=== PATIENT | male | born 1975 | race Caucasian/White ===

== ENCOUNTER 2018-08-09 16:37 | Observation (INO) | payer OTHER, SELFPAY ==
[2018-08-09 18:12] LABS: Troponin I 0.024 ng/mL (< 0.028)
[2018-08-09] MEDS ORDERED: Ondansetron ODT 4 MG TAB PO PRN (19:37)
[2018-08-09] MEDS ORDERED: Acetaminophen 325 MG TAB PO PRN (19:37)
[2018-08-09] MEDS ORDERED: Guaifenesin DM 100-10/5 ML UDCUP PO PRN (19:37)
[2018-08-09] MEDS ORDERED: Nitroglycerin 0.4 MG TAB (25 Tab Bottle) PO PRN (19:37)
[2018-08-09] MEDS ORDERED: Senokot S 8.6-50 MG TAB PO PRN (19:37)
[2018-08-09] MEDS ORDERED: Ondansetron PF 4 MG/2 ML Vial IVP PRN (19:37)
[2018-08-09] MEDS ORDERED: Acetaminophen 650 MG Suppository PR PRN (19:37)
[2018-08-09 19:59] VITALS: BMI 28.5
[2018-08-09] MEDS: Famotidine 20 MG TAB PO SCH (20:16)
[2018-08-09] MEDS ORDERED: cloNIDine 0.1 MG TAB PO PRN (20:20)
[2018-08-09] MEDS ORDERED: hydrALAZINE 20 MG/ML VIAL SLOW IVP PRN (20:20)
[2018-08-09] MEDS ORDERED: Lisinopril 20 MG TAB PO SCH (20:30)
[2018-08-09] MEDS ORDERED: Amlodipine 5 MG TAB PO SCH (20:30)
[2018-08-09 20:31] LABS: CKMB 1.4 ng/mL (0-6.6)
--- NOTE | 2018-08-09 20:54 | HP ---
PRIMARY CARE PHYSICIAN: Dangelo Fernandes. CHIEF COMPLAINT: Chest pain. HISTORY OF PRESENT ILLNESS: This is a 42-year-old white male with history of uncontrolled hypertension and some anxiety symptoms over the last year, who reports that he has been having some chest pains on and off for the last 3 to 4 days. The pains were pressure sensation, more associated with intermittent palpitations and would quickly resolve. However, the patient was in fdc today and he had onset of the chest pain, it did not go away. It lasted for about 2 hours or longer, was associated with a little bit of lightheadedness, dizziness. Initially, he reported some nausea when he was at the [place] [facility] although he does not recall any nausea now. He was sent to [facility]. There, his blood pressures went up to 186/122 and he had T-wave inversions in the anterolateral leads and indeterminate troponin at 0.031. He was transferred here for further evaluation. PAST MEDICAL HISTORY: Hypertension, diagnosed a couple of years ago. He has never followed up for this or taken any medicine. PAST SURGICAL HISTORY: 1. Cholecystectomy. 2. Surgery to the right side of his forehead. PSYCHIATRIC HISTORY: Possible anxiety over the last year. He has never been diagnosed. SOCIAL HISTORY: The patient smokes 1/2 to 1 pack cigarettes per day. He denies any drug use for the last 20 or so years. No regular alcohol use. He is and lives with his in [place]. ALLERGIES: NO KNOWN DRUG ALLERGIES. CURRENT MEDICATIONS: None. REVIEW OF SYSTEMS: CONSTITUTIONAL: No fevers, no chills. EYES: Mild blurring of his vision as he has gotten older, nothing acutely changing now. ENT: He has had some congestion, drainage, and sore throat for the last 2 to 3 weeks. CARDIOVASCULAR: See HPI. PULMONARY: The patient has had a cough, productive of yellow sputum along with some chest congestion for the last 2 to 3 weeks. No current shortness of breath. GASTROINTESTINAL: No abdominal pain. No nausea or vomiting. No diarrhea or constipation. GENITOURINARY: No dysuria or hematuria. MUSCULOSKELETAL: He has some low back and bilateral costovertebral angle pain that has been going on for some time now, may be the last couple of weeks. SKIN: No rashes or other lesions he has noted. NEUROLOGIC: No numbness, tingling, or focal weakness. PSYCHIATRIC: He has had some anxiety. No depression or psychotic symptoms. PHYSICAL EXAMINATION: VITAL SIGNS: Blood pressure 173/105, pulse 94, respirations 12, O2 saturation 90% on room air, temperature 98.2. GENERAL: This is a well-developed, well-nourished white male, in no acute distress. HEENT: Pupils are equal, round, and reactive to light. Oropharynx is clear without lesions, erythema, or exudate. NECK: Supple. No lymphadenopathy. No thyroid nodules or enlargement. No JVD. HEART: Regular rate and rhythm. No murmurs, rubs, or gallops. LUNGS: Clear to auscultation bilaterally. No wheezes, crackles, or rhonchi. He did have some coughing fits when I had him take some deep breaths in. ABDOMEN: Soft, nontender to palpation. Normoactive bowel sounds. No hepatosplenomegaly or other masses. EXTREMITIES: No clubbing, cyanosis, or edema. SKIN: No rashes or lesions noted. NEUROLOGIC: Intact strength and sensation in all extremities. No facial droop. PSYCHIATRIC: Alert and oriented x3. He has a mildly anxious affect and states that he has a bit of withdrawal from nicotine since he has not been able to smoke, he is requesting a nicotine patch. LABORATORY DATA: Complete metabolic panel notable for a BUN of 21, a glucose of 192, AST of 41, ALT of 58. The rest was normal. His troponin was 0.031 on the 1st check, it was 0.024 on the 2nd. Brain natriuretic peptide is mildly elevated at 108, CK-MB is 1.5. CBC was within normal limits. Chest x-ray, I did review the chest x-ray done in the emergency room along with the radiologist's report. He does have some mild cardiomegaly. No infiltrates or other acute changes. EKG shows normal sinus rhythm with some inverted T-waves in the anterior leads. ASSESSMENT: 1. Chest pain, rule out acute coronary syndrome. We will continue trending troponins. If they remain negative, then we will do a stress test in the morning. The patient is mobile and strong and so we will do the exercise nuclear stress test. Should this be positive, we will consult Cardiology. 2. Cardiomegaly on the chest x-ray, history of uncontrolled hypertension and mildly elevated brain natriuretic peptide. We will go ahead and get an echocardiogram. 3. Uncontrolled hypertension with hypertensive urgency. We will start the patient on regular blood pressure medications and we will give him p.r.n. for severe elevations. 4. Tobacco addiction. We will give the patient a nicotine patch while he is in the hospital and have recommended smoking cessation. We will give him smoking cessation materials. 5. Gastrointestinal prophylaxis. We will put the patient on Pepcid twice a day. 6. Deep venous thrombosis prophylaxis. We will put the patient on subcu Lovenox and SCDs while in the hospital. 7. Code status. The patient is a full code. Should he be incapacitated, his medical decision maker would be his , Tammy Dawkins. Job ID: [id number] [facility]
[2018-08-09] MEDS: Nicotine 14 MG PATCH TD SCH (21:32)
[2018-08-09] MEDS: Melatonin 3 MG TAB PO PRN (22:22)
[2018-08-10 00:03] LABS: CKMB 1.4 ng/mL (0-6.6)
[2018-08-10 01:09] LABS: Bilirubin Negative (Negative); Blood, Urine Negative (Negative); Clarity CLEAR (Clear); Glucose, Urine (Dipstick) Negative (Negative); Leukocyte Negative (Negative); Nitrite Negative (Negative); Protein, Urine (Dipstick) Negative (Neg-Trace); Urobilinogen 0.2 mg/dL (0.2-1.0)
[2018-08-10 01:24] LABS: Amphetamine Detected (NotDetected); Medtox Reader # READER 4; Methamphetamine Detected (NotDetected)
[2018-08-10 01:25] LABS: Barbiturates Screen Not Detected (NotDetected); Benzodiazepine Screen Not Detected (NotDetected); Cocaine Metabolite Screen Not Detected (NotDetected); Medtox Control Line Valid? VALID (VALID); Methadone Not Detected (NotDetected); Opiate Screen Not Detected (NotDetected); Oxycodone Screen Not Detected (NotDetected); Phencyclidine (PCP) Not Detected (NotDetected); THC/Cannabinoid Screen Not Detected (NotDetected); Tricyclic Screen Not Detected (NotDetected)
[2018-08-10 05:40] LABS: #Basophils 0.1 thou/uL (0.0-0.2); #Eosinphils 0.4 thou/uL (0.0-0.7); #Lymphocytes 2.3 thou/uL (1.20-3.40); #Monocytes 0.6 thou/uL (0.11-0.59); #Neutrophils 3.2 thou/uL (1.40-6.50); %Basophils 0.8 % (0.0-1.0); %Eosinophils 5.9 % (0.0-10.0); %Lymphocytes 34.8 % (21.0-51.0); %Monocytes 9.7 % (0.0-10.0); %Neutrophils 48.8 % (42.0-75.0); Hemoglobin 15.8 g/dL (14.0-18.0); Mean Corpuscular HGB CONC 32.5 g/dL (32.0-36.0); Mean Corpuscular Hemoglobin 29.3 pg (27.0-31.0); Mean Corpuscular Volume 90.2 fL (78.0-98.0); Mean Platelet Volume 7.2 fL (7.4-10.4); Platelet Count 264 thou/uL (130-400); RBC Distribution Width 12.4 % (11.5-14.5); Red Blood Cell (RBC) Count 5.39 mill/uL (4.70-6.10); White Blood Cell (WBC) Count 6.5 thou/uL (4.8-10.8)
[2018-08-10 05:56] LABS: Anion Gap 13 mmol/L (10-20); BUN (Urea Nitrogen) 21 mg/dL (8.9-20.6); Calc. Creatinine Clearance 116 mL/min (70-130); Calcium 9.1 mg/dL (7.8-10.44); Carbon Dioxide 23 mmol/L (22-29); Cardiac Risk 3.5 (Less than 4.5); Chloride 106 mmol/L (98-107); Cholesterol 111 mg/dl (< 200 Desired); Estimated GFR-MDRD 85; Glucose 83 mg/dL (70-105); HDL Cholesterol 32 mg/dL (>60 Neg Risk); LDL Cholesterol, Calculated 70 mg/dL; Sodium 138 mmol/L (136-145); Triglycerides 45 mg/dL (Less than 150)
[2018-08-10] MEDS: Aspirin 325 mg Enteric Coated Tablet PO SCH (08:10)
[2018-08-10] MEDS: Famotidine 20 MG TAB PO SCH ×2 (08:10→21:12)
[2018-08-10] MEDS ORDERED: Lisinopril 20 MG TAB PO SCH ×2 (09:00→21:00)
[2018-08-10] MEDS ORDERED: Amlodipine 5 MG TAB PO SCH (09:00)
[2018-08-10] MEDS ORDERED: Enoxaparin Sodium 40 MG/0.4 ML SYRINGE SC SCH (09:00)
[2018-08-10] MEDS ORDERED: Sodium Chloride 0.45% 1,000 ML IV SCH (09:30)
[2018-08-10] MEDS ORDERED: hydrALAZINE 20 MG/ML VIAL ONE (10:19)
[2018-08-10] MEDS ORDERED: Nitroglycerin 50 MG/250 ML BOT 250 ML ONE (10:19)
[2018-08-10] MEDS ORDERED: Iopamidol 370 76% 100 ML VIAL ONE (10:30)
[2018-08-10] MEDS ORDERED: Midazolam HCl 2 mg/2 ml Vial ONE (10:30)
--- NOTE | 2018-08-10 10:54 | CON ---
DATE OF CONSULTATION: HISTORY OF PRESENT ILLNESS: The patient is a 42-year-old gentleman who presents for evaluation of dyspnea and chest discomfort. The patient has no previous cardiac history. He states recently he has noted having dyspnea on exertion. The patient yesterday developed mid sternal chest discomfort that radiated down his left arm. The patient presented to emergency room for further evaluation. The patient denies having any present chest discomfort. The patient denies having any PND or orthopnea. PAST MEDICAL HISTORY: None. PAST SURGICAL HISTORY: Cholecystectomy and surgery on his forehead. SOCIAL HISTORY: He smokes 1 pack per day. FAMILY HISTORY: Positive family history of heart disease. Father had coronary bypass surgery. ALLERGIES: NONE. MEDICATIONS: None. PHYSICAL EXAMINATION: GENERAL: Middle-aged gentleman, no acute distress. VITAL SIGNS: Blood pressure of 132/96. NECK: Showed no jugular venous distention. LUNGS: Clear to auscultation. HEART: Regular rate and rhythm. Normal S1 and S2 with no murmurs. ABDOMEN: Nondistended. EXTREMITIES: Showed no edema. VASCULAR: Radial pulses are 2+. LABORATORY RESULTS: Sodium 138, potassium 4.0, chloride 106, bicarb 23, BUN 21, creatinine is 0.96. Troponin 0.032. White blood cell count 6.5, hemoglobin 15.8, hematocrit 48.6, platelets were 264. IMAGING: His EKG revealed him to have normal sinus rhythm with a T-wave abnormality suggestive of ischemia. IMPRESSION: 1. Chest pain suggestive of ischemic heart disease. 2. Cardiomyopathy. 3. Tobacco abuse. 4. Obesity. This gentleman has evidence of a probable ischemic cardiomyopathy. With his young age, I have recommended proceeding directly with cardiac catheterization. I explained the risks involved with the procedure including ND, bleeding, stroke, cardiac rhythm, and cardiac . The patient understands these risks and wished to proceed. PLAN: 1. Start aspirin. 2. Add lipid lowering medication. 3. Start lisinopril. 4. Add Coreg. 5. Discontinue smoking. 6. Proceed with cardiac catheterization. Job ID: [id number] [facility]
[2018-08-10] MEDS ORDERED: Clopidogrel Bisulfate 300 MG TAB PO SCH (11:15)
--- NOTE | 2018-08-10 11:58 | PDOC.PN ---
- Subjective Encounter Start Date: 08/10/18 Encounter Start Time: 11:45 Subjective: patient examined, in no distress - Objective Resuscitation Status - Order Detail: 08/09/18 19:33 Resuscitation Status Routine Resuscitation Status: FULL: Full Resuscitation Vital Signs & Weight: Vital Signs (12 hours) Temp Pulse Resp BP BP Pulse Ox 08/10/18 11:33 88 14 137/83 97 08/10/18 08:17 98.2 F 70 14 132/96 H 95 08/10/18 07:10 95 08/10/18 04:29 98.1 F 81 12 139/104 H 92 L Weight Weight 82.871 kg I&O: 08/09/18 08/10/18 08/11/18 06:59 06:59 06:59 Intake Total 991 Output Total 950 775 Balance 41 -775 Result Diagrams: 08/11/18 09:40 08/11/18 09:40 Phys Exam - Physical Examination HEENT: PERRLA Neck: no nodes Respiratory: no wheezing, clear to auscultation bilateral Cardiovascular: RRR Gastrointestinal: soft, non-tender Musculoskeletal: no edema, pulses present Neurological: non-focal Lymphatic: no nodes Psychiatric: normal affect, A&O x 3 Skin: normal turgor, cap refill <2 seconds Dx/Plan (1) Chest pain Code(s): R07.9 - CHEST PAIN, UNSPECIFIED Status: Acute (2) Hypertension Code(s): I10 - ESSENTIAL (PRIMARY) HYPERTENSION Status: Chronic (3) Hypertensive urgency Code(s): I16.0 - HYPERTENSIVE URGENCY Status: Acute (4) Drug abuse, amphetamine type Code(s): F15.10 - OTHER STIMULANT ABUSE, UNCOMPLICATED Status: Acute - Plan cont current plan of care Dr Norris saw this morning, radiology technologist mentioned EF 20-25% -: Patient will go to [facility] [employer] [facility] today, stress cancelled -: BP improved, will continue to monitor -: Recheck labs in AM * .
[2018-08-10 12:13] LABS: INR-International Normal Ratio 1.1; Prothrombin Time 13.9 SEC (12.0-14.7)
[2018-08-10] MEDS: Nicotine 14 MG PATCH TD SCH (13:28)
[2018-08-10] MEDS ORDERED: Acetaminophen/Codeine 30-300mg Tablet PO PRN ×2 (14:47)
[2018-08-10] MEDS: Carvedilol 3.125 MG TAB PO SCH (17:13)
[2018-08-10] MEDS: Atorvastatin Calcium 40 MG TAB PO SCH (21:12)
[2018-08-10] MEDS: Lisinopril 5 MG TAB PO SCH (21:12)
[2018-08-10] MEDS: Melatonin 3 MG TAB PO PRN (21:12)
[2018-08-11] MEDS: Carvedilol 3.125 MG TAB PO SCH (08:22)
[2018-08-11] MEDS: Aspirin 325 mg Enteric Coated Tablet PO SCH (08:23)
[2018-08-11] MEDS: Nicotine 14 MG PATCH TD SCH (08:23)
[2018-08-11] MEDS: Famotidine 20 MG TAB PO SCH ×2 (08:23→20:53)
[2018-08-11] MEDS: Lisinopril 5 MG TAB PO SCH (08:23)
[2018-08-11] MEDS ORDERED: Clopidogrel Bisulfate 75 MG TAB PO SCH (09:30)
[2018-08-11] MEDS ORDERED: Carvedilol 3.125 MG TAB PO SCH (09:30)
[2018-08-11] MEDS ORDERED: Lisinopril 5 MG TAB PO SCH (09:45)
[2018-08-11 09:54] LABS: #Eosinphils 0.4 thou/uL (0.0-0.7); #Lymphocytes 1.7 thou/uL (1.20-3.40); #Monocytes 0.5 thou/uL (0.11-0.59); #Neutrophils 4.8 thou/uL (1.40-6.50); %Basophils 0.5 % (0.0-1.0); %Eosinophils 4.8 % (0.0-10.0); %Lymphocytes 22.7 % (21.0-51.0); %Monocytes 6.3 % (0.0-10.0); %Neutrophils 65.6 % (42.0-75.0); Hemoglobin 16.2 g/dL (14.0-18.0); Mean Corpuscular HGB CONC 32.2 g/dL (32.0-36.0); Mean Corpuscular Hemoglobin 28.3 pg (27.0-31.0); Mean Corpuscular Volume 88.1 fL (78.0-98.0); Mean Platelet Volume 7.1 fL (7.4-10.4); Platelet Count 289 thou/uL (130-400); RBC Distribution Width 12.5 % (11.5-14.5); White Blood Cell (WBC) Count 7.2 thou/uL (4.8-10.8)
[2018-08-11 10:16] LABS: ALT (SGPT) 37 U/L (8-55); AST (SGOT) 24 U/L (5-34); Albumin 3.6 g/dL (3.5-5.0); Alkaline Phosphatase 79 U/L (40-150); Anion Gap 7 mmol/L (10-20); BUN (Urea Nitrogen) 18 mg/dL (8.9-20.6); Bilirubin, Total 0.6 mg/dL (0.2-1.2); Calc. Creatinine Clearance 111 mL/min (70-130); Calcium 9.3 mg/dL (7.8-10.44); Carbon Dioxide 32 mmol/L (22-29); Chloride 105 mmol/L (98-107); Estimated GFR-MDRD 81; Globulin 2.6 g/dL (2.4-3.5); Glucose 101 mg/dL (70-105); Potassium 4.1 mmol/L (3.5-5.1); Protein, Total 6.2 g/dL (6.0-8.3); Sodium 140 mmol/L (136-145)
--- NOTE | 2018-08-11 10:51 | PDOC.PN ---
- Subjective Encounter Start Date: 08/11/18 Encounter Start Time: 10:00 Subjective: Patient examined today, no complaints, no overnight events - Objective Resuscitation Status - Order Detail: 08/09/18 19:33 Resuscitation Status Routine Resuscitation Status: FULL: Full Resuscitation Vital Signs & Weight: Vital Signs (12 hours) Temp Pulse Resp BP Pulse Ox 08/11/18 07:50 98.4 F 71 15 141/99 H 94 L 08/11/18 04:50 98 F 74 20 166/116 H 96 Weight Weight 82.871 kg I&O: 08/10/18 08/11/18 08/12/18 06:59 06:59 06:59 Intake Total 991 2310 Output Total 950 1025 Balance 41 1285 Result Diagrams: 08/11/18 09:40 08/11/18 09:40 Phys Exam - Physical Examination HEENT: PERRLA, moist MMs Neck: no nodes, no JVD Respiratory: clear to auscultation bilateral Cardiovascular: RRR Gastrointestinal: soft, non-tender Musculoskeletal: no edema, pulses present Neurological: non-focal, normal sensation Psychiatric: normal affect, A&O x 3 Skin: cap refill <2 seconds Dx/Plan (1) Chest pain Code(s): R07.9 - CHEST PAIN, UNSPECIFIED Status: Acute (2) Hypertension Code(s): I10 - ESSENTIAL (PRIMARY) HYPERTENSION Status: Chronic (3) Hypertensive urgency Code(s): I16.0 - HYPERTENSIVE URGENCY Status: Resolved (4) Drug abuse, amphetamine type Code(s): F15.10 - OTHER STIMULANT ABUSE, UNCOMPLICATED Status: Acute - Plan Repeat Echo today, HF education -: Possible Lifevest -: Dr. Norris following, will await clearance for DC * .
[2018-08-11] MEDS ORDERED: Lisinopril 20 MG TAB PO SCH (16:45)
[2018-08-11] MEDS ORDERED: Carvedilol 6.25 MG TAB PO SCH (17:00)
[2018-08-11] MEDS: Carvedilol 25 MG TAB PO SCH (17:07)
[2018-08-11] MEDS ORDERED: Prevnar 13-Val Conj/PF 0.5 ML SYRINGE IM ONE (18:00)
[2018-08-11] MEDS: Melatonin 3 MG TAB PO PRN (20:53)
[2018-08-11] MEDS: Atorvastatin Calcium 40 MG TAB PO SCH (20:53)
[2018-08-11] MEDS ORDERED: Lisinopril 10 MG TAB PO SCH (21:00)
[2018-08-12 04:59] LABS: #Basophils 0.1 thou/uL (0.0-0.2); #Eosinphils 0.5 thou/uL (0.0-0.7); #Lymphocytes 2.4 thou/uL (1.20-3.40); #Monocytes 0.7 thou/uL (0.11-0.59); #Neutrophils 6.2 thou/uL (1.40-6.50); %Basophils 0.6 % (0.0-1.0); %Eosinophils 5.4 % (0.0-10.0); %Lymphocytes 24.7 % (21.0-51.0); %Monocytes 6.8 % (0.0-10.0); %Neutrophils 62.6 % (42.0-75.0); Hemoglobin 15.5 g/dL (14.0-18.0); Mean Corpuscular HGB CONC 32.2 g/dL (32.0-36.0); Mean Platelet Volume 6.9 fL (7.4-10.4); Platelet Count 274 thou/uL (130-400); RBC Distribution Width 12.2 % (11.5-14.5); Red Blood Cell (RBC) Count 5.37 mill/uL (4.70-6.10); White Blood Cell (WBC) Count 9.9 thou/uL (4.8-10.8)
[2018-08-12 05:19] LABS: ALT (SGPT) 33 U/L (8-55); AST (SGOT) 21 U/L (5-34); Albumin 3.4 g/dL (3.5-5.0); Alkaline Phosphatase 71 U/L (40-150); Anion Gap 12 mmol/L (10-20); BUN (Urea Nitrogen) 21 mg/dL (8.9-20.6); Bilirubin, Total 0.3 mg/dL (0.2-1.2); Calc. Creatinine Clearance 90 mL/min (70-130); Calcium 9.2 mg/dL (7.8-10.44); Carbon Dioxide 26 mmol/L (22-29); Chloride 105 mmol/L (98-107); Estimated GFR-MDRD 64; Globulin 2.3 g/dL (2.4-3.5); Glucose 117 mg/dL (70-105); Potassium 4.2 mmol/L (3.5-5.1); Protein, Total 5.7 g/dL (6.0-8.3); Sodium 139 mmol/L (136-145)
[2018-08-12 07:55] VITALS: TEMP 98.1
[2018-08-12] MEDS ORDERED: Lisinopril 20 MG TAB PO SCH (09:00)
[2018-08-12] MEDS ORDERED: Aspirin 81 mg Enteric Coated Tablet PO SCH (09:00)
[2018-08-12] MEDS ORDERED: Clopidogrel Bisulfate 75 MG TAB PO SCH (09:00)
[2018-08-12] MEDS: Carvedilol 25 MG TAB PO SCH (09:20)
[2018-08-12] MEDS: Famotidine 20 MG TAB PO SCH (09:20)
[2018-08-12] MEDS: Nicotine 14 MG PATCH TD SCH (09:21)
[2018-08-12 11:23] VITALS: BP 142/87
--- NOTE | 2018-08-13 06:20 | DIS ---
DATE OF ADMISSION: 08/09/2018 DATE OF DISCHARGE: 08/12/2018 ALLERGIES: NO KNOWN DRUG ALLERGIES. CHIEF COMPLAINT: Chest pain. FINAL DIAGNOSES: 1. Dilated cardiomyopathy. 2. Single-vessel coronary artery disease with 70% lesion in the circumflex. 3. Hypertension. 4. Tobacco abuse. PROCEDURES PERFORMED: Left heart catheterization by Dr. Norris. LABORATORY DATA: Most recent lab results from 08/12/2018; white blood cell count 9.9, hemoglobin 15.5, hematocrit 48.3, and platelet count 274. IMAGING RESULTS: Echocardiogram on 08/11/2018 showed severely reduced left ventricular systolic function with EF 25% to 30%, mild MR. CONSULTATION: Dr. Norris. HOSPITAL COURSE: The patient is a 42-year-old male with past medical history significant for hypertension, who presented to the hospital with complaints of chest pain. The patient was actually incarcerated in the [facility] residential when his chest pain began. It lasted for about 2 hours, and was associated with intermittent palpitations along with lightheadedness. The patient was initially transferred to the [facility] for further workup and treatment. EKG at that facility showed sinus rhythm with ventricular rate of 80 beats per minute, there were T-wave inversions in the inferior and lateral leads. The troponin there was indeterminant, so the patient was transferred to our facility for higher level of care. His troponin did remain indeterminant, initial echocardiogram did show severely reduced left ventricular systolic function with EF of 25% and Dr. Norris was consulted. The next day, he took the patient to the flue dust laborer, which official report is not available, but review of handwritten progress note showed a 70% lesion in the circumflex, and no other significant coronary artery disease. The patient was initiated on hypertensive and heart failure medication regimen with carvedilol and lisinopril, he was also placed on aspirin and Plavix. The patient was fitted with a Life Vest, given his severely reduced EF. This morning, the patient feels well. He has no chest pain. He has no shortness of breath. He is tolerating all of his medications. He was ambulated around the room without issue. PHYSICAL EXAMINATION: VITAL SIGNS: Blood pressure 143/103, afebrile, and pulse 72. GENERAL: Awake and alert, in no acute distress, well appearing. HEENT: Atraumatic and normocephalic. PERRLA. NECK: Supple, no JVD. RESPIRATORY: Regular respiratory rate and pattern, clear to auscultation bilaterally. CARDIOVASCULAR: S1 and S2, regular rate and rhythm. No appreciable murmurs, rubs, or gallops. GI: Soft, nontender. Positive bowel sounds. MUSCULOSKELETAL: The patient has no edema. No signs of obvious infection. NEUROLOGIC: Nonfocal. CONDITION AT DISCHARGE: Stable. DISCHARGE MEDICATIONS: 1. Aspirin 81 mg daily. 2. Lipitor 40 mg at bedtime. 3. Carvedilol 25 mg p.o. b.i.d. 4. Plavix 75 mg daily. 5. Pepcid 20 mg p.o. b.i.d. 6. Lisinopril 20 mg p.o. b.i.d. 7. Nitroglycerin 0.4 mg sublingual tablet p.r.n. chest pain. The patient was also discharged with tobacco cessation material and nicotine patch. DISCHARGE DISPOSITION: We will discharge the patient home. PLAN: The patient is to continue wearing his Life Vest at all times except when showering. He has been educated regarding the proper use and wear of his Life Vest and its purpose. He will continue his medications as listed above. He will follow up with Dr. Norris in 2 weeks. All questions have been answered to the patient's satisfaction. 30 minutes was spent in the care and management of this patient. Job ID: [id number] [facility]
== END 2018-08-12 12:19 | disposition home or self-care (01) ==
LOC: ERS 16:37 → ERHOLD 17:15 → 2SW 19:29
PROVIDERS: ADMIT Emergency Medicine; ATTEND Emergency Medicine
PROC: 4A023N7 Measurement of Cardiac Sampling and Pressure, Left Heart, Percutaneous Approach (ICD-10-PCS; principal; 2018-08-12)
PROC: B2111ZZ Fluoroscopy of Multiple Coronary Arteries using Low Osmolar Contrast (ICD-10-PCS; 2018-08-12)
DX: I42.0 Dilated cardiomyopathy (principal); I25.10 Atherosclerotic heart disease of native coronary artery without angina pectoris; I16.0 Hypertensive urgency; I10 Essential (primary) hypertension; F17.210 Nicotine dependence, cigarettes, uncomplicated; F15.10 Other stimulant abuse, uncomplicated; E66.9 Obesity, unspecified; Z68.28 Body mass index [BMI] 28.0-28.9, adult
CPT/HCPCS: 36415; 80048; 80053; 80061; 80306; 81003; 82553; 85025; 85610; 85730; 90471; 90670; 93005; 93306; 93458; 94760; 96372; 99152; 99153; C1769; G0009; G0378; J0360; J1644; J1650; J2250; Q9967

== ENCOUNTER 2019-10-22 18:56 | Inpatient (IN) | payer OTHER, SELFPAY ==
[2019-10-22] MEDS ORDERED: Naloxone HCl 0.4 mg/ml Vial ONE (19:35)
[2019-10-22 19:57] LABS: #Eosinphils 0.3 thou/uL (0.0-0.7); #Lymphocytes 1.8 thou/uL (1.20-3.40); #Monocytes 0.8 thou/uL (0.11-0.59); #Neutrophils 7.6 thou/uL (1.40-6.50); %Basophils 0.2 % (0.0-1.0); %Eosinophils 2.8 % (0.0-10.0); %Lymphocytes 16.9 % (21.0-51.0); %Monocytes 7.3 % (0.0-10.0); %Neutrophils 72.9 % (42.0-75.0); Hemoglobin 14.7 g/dL (14.0-18.0); Mean Corpuscular HGB CONC 31.9 g/dL (32.0-36.0); Mean Corpuscular Hemoglobin 28.5 pg (27.0-31.0); Mean Corpuscular Volume 89.5 fL (78.0-98.0); Mean Platelet Volume 7.4 fL (7.4-10.4); Platelet Count 280 thou/uL (130-400); RBC Distribution Width 12.8 % (11.5-14.5); Red Blood Cell (RBC) Count 5.16 mill/uL (4.70-6.10); White Blood Cell (WBC) Count 10.4 thou/uL (4.8-10.8)
[2019-10-22 20:01] LABS: Bacteria/HPF None Seen HPF (None Seen); Bilirubin Negative (Negative); Blood, Urine Trace (Negative); Clarity Clear (Clear); Glucose, Urine (Dipstick) Normal (Negative); Leukocyte Negative Leu/uL (Negative); Nitrite Negative (Negative); Protein, Urine (Dipstick) Negative (Neg-Trace); RBC/HPF 0-3 HPF (0-3); Squamous Epithelial None Seen HPF (0-3); Urobilinogen Normal mg/dL (Less than 2); WBC/HPF 0-3 HPF (0-3)
--- NOTE | 2019-10-22 20:09 | CT ---
CT head noncontrast HISTORY: Altered mental status. FINDINGS: No comparison. There is no evidence of acute intracranial hemorrhage. At the medial aspect of the left thalamus, an ill-defined oval area of decreased density measures up to 1.4 cm length with slight effacement of the adjacent third ventricle. A more well-defined area of decreased density at the left periventricular white matter has the appearance of an old area of infarct. Septum pellucidum is midline. Visualized paranasal sinuses remain well aerated. Tiny pocket of gas as sociated with the right muscles of mastication could be related to recent IV access. IMPRESSION : Subtle abnormality involving the left thalamus could represent edema from an acute infarct. Please co nsider short-term follow-up with MRI, without and with IV gadolinium contrast. 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
[2019-10-22 20:11] LABS: Medtox Reader # READER 4; Methamphetamine Detected (NotDetected)
--- NOTE | 2019-10-22 20:11 | RAD ---
Chest one view HISTORY: Cough. COMPARISON: 08/09/2018. FINDINGS: Cardiac silhouette is magnified and enlarged. Pulmonary vasculature upper limits of normal. Mediastinum is midline. No confluent airspace consolidation or evidence of pneumothorax. lunchroom monitor leads overlie the chest. IMPRESSION : Cardiomegaly. Borderline pulmonary vascular congestion.
[2019-10-22 20:12] LABS: Amphetamine Detected (NotDetected); Barbiturates Screen Not Detected (NotDetected); Benzodiazepine Screen Not Detected (NotDetected); Cocaine Metabolite Screen Not Detected (NotDetected); Medtox Control Line Valid? VALID (VALID); Methadone Not Detected (NotDetected); Opiate Screen Not Detected (NotDetected); Oxycodone Screen Not Detected (NotDetected); Phencyclidine (PCP) Not Detected (NotDetected); THC/Cannabinoid Screen Not Detected (NotDetected); Tricyclic Screen Not Detected (NotDetected)
[2019-10-22 20:17] LABS: ALT (SGPT) 21 U/L (8-55); AST (SGOT) 20 U/L (5-34); Albumin 3.4 g/dL (3.5-5.0); Alkaline Phosphatase 74 U/L (40-110); Anion Gap 12 mmol/L (10-20); BUN (Urea Nitrogen) 15 mg/dL (8.9-20.6); Bilirubin, Total 1.4 mg/dL (0.2-1.2); Calc. Creatinine Clearance 0 mL/min (70-130); Calcium 8.6 mg/dL (7.8-10.44); Carbon Dioxide 26 mmol/L (22-29); Chloride 103 mmol/L (98-107); Estimated GFR-MDRD 70; Globulin 2.2 g/dL (2.4-3.5); Glucose 154 mg/dL (70-105); Lipase 8 U/L (8-78); Potassium 3.5 mmol/L (3.5-5.1); Protein, Total 5.6 g/dL (6.0-8.3); Sodium 137 mmol/L (136-145)
[2019-10-22 20:18] LABS: Acetaminophen Less than 6.0 mcg/mL (10.0-30.0); Alcohol Less than 10 mg/dL (Less than 10); CK (CPK) 171 U/L (30-200); Magnesium 2.1 mg/dL (1.6-2.6); Salicylate Less than 8.0 mg/dL (15.0-30.0)
[2019-10-22] MEDS ORDERED: Aspirin Chewable 81 MG TAB ONE (20:23)
[2019-10-22 20:38] LABS: CKMB 3.8 ng/mL (0-6.6)
[2019-10-22] MEDS ORDERED: Senokot S 8.6-50 MG TAB PO PRN (22:10)
[2019-10-22] MEDS ORDERED: Acetaminophen 325 MG TAB PO PRN (22:10)
[2019-10-22] MEDS ORDERED: Sodium Chloride 0.9% 1,000 ML IV SCH (22:30)
--- NOTE | 2019-10-22 22:42 | PDOC.HHP ---
Hospitalist HPI - History of Present Illness AMS x2 days History of Present Illness: Police were called to patient's residence who called EMS after patient was found to be altered at the scene. Per ED record, patient is not in custody and narcotics were found at the home. Does have a history of drug abuse. Patient is not a good historian, most of the history gleaned from ED records and previous medical records. He will answer questions and follows commands appropriately but is somnolent and goes back to sleep after answering questions. Per ED record, patient's stated he has been altered for about 2 days, recent history of Meth use. Was seen at this facility in Jul 2018 for chest pain, was found to have dilated cardiomyopathy, and Echo at that time with EF 25-30%. Had a heart cath done during that hospital visit and found to have single vessel CAD with 70% lesion in the circumflex. Was fitted for a LifeVest at that time. Patient was not wearing this in the ED. No evidence of AICD placement. He was instructed to follow up with Dr. Norris last year and it is unclear if he complied. He reports no past medical history and states he does not take medications on a daily basis. ED Course: Brain CT with possible acute infarct in left thalamus, recommended MRI to further evaluate. No focal weakness noted. He was given an aspirin, narcan and 1L of NS within in the ED. Chest XR with no acute findings. Elevated troponin in the indeterminate range and EKG done with no acute ST changes. Patient to be admitted to stroke for further work-up. Hospitalist ROS - Review of Systems Constitutional: reports: malaise Eyes: denies: pain, vision change, conjunctivae inflammation, eyelid inflammation, redness, other ENT: denies: ear pain, ear discharge, nose pain, nose discharge, nose congestion , mouth pain, mouth swelling, throat pain, throat swelling, other Respiratory: reports: cough, wheezing Cardiovascular: denies: chest pain, palpitations, orthopnea, paroxysmal noc. dyspnea, edema, light headedness, other Gastrointestinal: denies: nausea, vomiting, abdominal pain, diarrhea, constipation, melena, hematochezia, other Genitourinary: denies: dysuria, frequency, incontinence, hematuria, retention, other Other: Patient is a poor historian and limited ROS was obtained - Medication Medications: None Hospitalist History - Past Medical History Cardiac: reports: CAD, CHF, HTN Pulmonary: reports: congestive heart failure, hypertension - Past Surgical History Past Surgical History: reports: Cholecystectomy - Social History Smoking Status: Smoker, status unknown Drugs: reports: methamphetamine Living Situation: With Family - Exam Eye: anicteric sclera (Pinpoint pupils) ENT: dry oral mucosa Neck: no JVD Heart: RRR, no murmur Respiratory: wheezes Gastrointestinal: soft, non-tender Extremities: no edema Skin: normal turgor Neurological: no weakness Neurological - other findings: speech is rushed, patient is somnolent, answers questions and follows cmds Hospitalist Results - Labs Result Diagrams: 10/22/19 19:41 10/22/19 19:41 Lab results: WBC 10.4 thou/uL (4.8-10.8) 10/22/19 19:41 Hgb 14.7 g/dL (14.0-18.0) 10/22/19 19:41 Hct 46.1 % (42.0-52.0) 10/22/19 19:41 MCV 89.5 fL (78.0-98.0) 10/22/19 19:41 Plt Count 280 thou/uL (130-400) 10/22/19 19:41 Neutrophils % 72.9 % (42.0-75.0) 10/22/19 19:41 Sodium 137 mmol/L (136-145) 10/22/19 19:41 Potassium 3.5 mmol/L (3.5-5.1) 10/22/19 19:41 Chloride 103 mmol/L (98-107) 10/22/19 19:41 Carbon Dioxide 26 mmol/L (22-29) 10/22/19 19:41 BUN 15 mg/dL (8.9-20.6) 10/22/19 19:41 Creatinine 1.13 mg/dL (0.7-1.3) 10/22/19 19:41 Glucose 154 mg/dL (70-105) H 10/22/19 19:41 Lactic Acid 1.5 mmol/L (0.5-2.2) 10/22/19 19:41 Calcium 8.6 mg/dL (7.8-10.44) 10/22/19 19:41 Total Bilirubin 1.4 mg/dL (0.2-1.2) H 10/22/19 19:41 AST 20 U/L (5-34) 10/22/19 19:41 ALT 21 U/L (8-55) 10/22/19 19:41 Alkaline Phosphatase 74 U/L (40-110) 10/22/19 19:41 Creatine Kinase 171 U/L (30-200) 10/22/19 19:41 CK-MB (CK-2) 3.8 ng/mL (0-6.6) 10/22/19 19:41 Troponin I 0.162 ng/mL (< 0.028) H 10/22/19 19:41 Serum Total Protein 5.6 g/dL (6.0-8.3) L 10/22/19 19:41 Albumin 3.4 g/dL (3.5-5.0) L 10/22/19 19:41 Lipase 8 U/L (8-78) 10/22/19 19:41 Urine Ketones Trace mg/dL (Negative) A 10/22/19 19:45 Urine Blood Trace (Negative) A 10/22/19 19:45 Urine Nitrite Negative (Negative) 10/22/19 19:45 Ur Leukocyte Esterase Negative Saundra/uL (Negative) 10/22/19 19:45 Urine RBC 0-3 HPF (0-3) 10/22/19 19:45 Urine WBC 0-3 HPF (0-3) 10/22/19 19:45 Ur Squamous Epith Cells None Seen HPF (0-3) 10/22/19 19:45 Urine Bacteria None Seen HPF (None Seen) 10/22/19 19:45 - EKG Interpretation EKG: Taken in ED with sinus tach, HR 112, ST depression in V5, V6, T waves inverted. No Stemi - Radiology Interpretation CT scan - head Status: report reviewed by me (subtle abnormality involving left thalamus could represent edema from an acute infarction, MRI follow-up recommended) Hospitalist H&P A/P - Problem (1) AMS (altered mental status) Code(s): R41.82 - ALTERED MENTAL STATUS, UNSPECIFIED Status: Acute (2) NSTEMI (non-ST elevated myocardial infarction) Code(s): I21.4 - NON-ST ELEVATION (NSTEMI) MYOCARDIAL INFARCTION Status: Acute (3) Drug abuse, amphetamine type Code(s): F15.10 - OTHER STIMULANT ABUSE, UNCOMPLICATED Status: Acute (4) Hypertension Code(s): I10 - ESSENTIAL (PRIMARY) HYPERTENSION Status: Chronic (5) Dilated cardiomyopathy Code(s): I42.0 - DILATED CARDIOMYOPATHY Status: Acute (6) CAD (coronary artery disease) Code(s): I25.10 - ATHSCL HEART DISEASE OF [place] CORONARY ARTERY W/O ANG PCTRS Status: Acute - Plan Plan: Trend troponins, ASA, Statin, Lovenox 1mg/kg, Cardiology consult for positive troponins, cardiac history Echo, Carotid doppler, MRI brain w/o contrast, neuro checks q4, PT/OT/Speech Case discussed with Dr. Decker who agrees plan Pepcid 20mg po for GI prophalyxis Repeat labs in AM, added lipids, TSH
[2019-10-22 23:12] VITALS: BMI 31.2
[2019-10-22 23:21] LABS: Troponin I 0.703 ng/mL (< 0.028)
[2019-10-22] MEDS ORDERED: Furosemide 20 MG/2 ML VIAL SLOW IVP SCH (23:45)
[2019-10-23 02:07] LABS: #Basophils 0.1 thou/uL (0.0-0.2); #Eosinphils 0.4 thou/uL (0.0-0.7); #Lymphocytes 2.1 thou/uL (1.20-3.40); #Monocytes 0.9 thou/uL (0.11-0.59); #Neutrophils 9.3 thou/uL (1.40-6.50); %Basophils 0.6 % (0.0-1.0); %Eosinophils 3.2 % (0.0-10.0); %Lymphocytes 16.7 % (21.0-51.0); %Monocytes 7.3 % (0.0-10.0); %Neutrophils 72.3 % (42.0-75.0); Hemoglobin 16.1 g/dL (14.0-18.0); Mean Corpuscular HGB CONC 32.5 g/dL (32.0-36.0); Mean Corpuscular Hemoglobin 29.1 pg (27.0-31.0); Mean Corpuscular Volume 89.4 fL (78.0-98.0); Mean Platelet Volume 7.3 fL (7.4-10.4); Platelet Count 305 thou/uL (130-400); Red Blood Cell (RBC) Count 5.54 mill/uL (4.70-6.10); White Blood Cell (WBC) Count 12.8 thou/uL (4.8-10.8)
[2019-10-23] MEDS: Enoxaparin Sodium 100 MG/ML SYRINGE SC SCH ×4 (02:14→21:39)
[2019-10-23] MEDS: Albuterol 200 PUFF (6.7GM INHALER) INH PRN ×2 (02:14→19:45)
[2019-10-23 02:27] LABS: Troponin I 3.424 ng/mL (< 0.028)
[2019-10-23 02:35] LABS: ALT (SGPT) 24 U/L (8-55); AST (SGOT) 38 U/L (5-34); Albumin 3.9 g/dL (3.5-5.0); Alkaline Phosphatase 81 U/L (40-110); Anion Gap 16 mmol/L (10-20); BUN (Urea Nitrogen) 13 mg/dL (8.9-20.6); Bilirubin, Total 1.6 mg/dL (0.2-1.2); Calc. Creatinine Clearance 123 mL/min (70-130); Calcium 9.1 mg/dL (7.8-10.44); Carbon Dioxide 23 mmol/L (22-29); Cardiac Risk 2.8 (Less than 4.5); Chloride 106 mmol/L (98-107); Cholesterol 97 mg/dl (< 200 Desired); Estimated GFR-MDRD 73; Globulin 2.4 g/dL (2.4-3.5); Glucose 94 mg/dL (70-105); HDL Cholesterol 35 mg/dL (>60 Neg Risk); LDL Cholesterol, Calculated 52 mg/dL; Potassium 3.7 mmol/L (3.5-5.1); Protein, Total 6.3 g/dL (6.0-8.3); Sodium 141 mmol/L (136-145); Triglycerides 49 mg/dL (Less than 150)
[2019-10-23] MEDS ORDERED: cloNIDine 0.1 MG TAB PO PRN (07:50)
[2019-10-23] MEDS ORDERED: Nitroglycerin 2% Ointment 1 INCH/1 GM Packet TOP SCH (08:00)
[2019-10-23] MEDS: Nitroglycerin 2% Ointment 1 INCH/1 GM Packet TOP SCH ×2 (08:32→19:35)
[2019-10-23] MEDS: Aspirin 325 mg Enteric Coated Tablet PO SCH (08:33)
[2019-10-23] MEDS: Famotidine 20 MG TAB PO SCH ×2 (08:33→19:35)
--- NOTE | 2019-10-23 08:59 | PDOC.HOSPP ---
- Subjective Encounter Date: 10/23/19 Encounter Time: 08:20 Subjective: Patient seen and examined for Encephalopathy/NSTEMI. Somnolent. - Objective Vital Signs & Weight: Vital Signs (12 hours) Temp Pulse Resp BP BP Pulse Ox 10/23/19 04:09 98.7 F 87 18 136/75 98 10/22/19 22:25 98.3 F 87 19 171/89 H 95 Weight Weight 223 lb 14.4 oz Result Diagrams: 10/23/19 01:52 10/23/19 01:52 Additional Labs: Laboratory Tests 10/22/19 10/22/19 10/23/19 19:41 19:45 01:52 Total Bilirubin Troponin I 3.424 H* B-Natriuretic Peptide 1122.4 H Cholesterol LDL Cholesterol, Calc Ur Amphetamines Screen Detected H U Methamphetamines Scrn Detected H 10/23/19 01:52 Total Bilirubin 1.6 H Troponin I B-Natriuretic Peptide Cholesterol 97 LDL Cholesterol, Calc 52 Ur Amphetamines Screen U Methamphetamines Scrn Radiology Reviewed by me: Yes (CXR - CHF) EKG Reviewed by me: Yes (Tele ST) Hospitalist ROS - Review of Systems ROS unobtainable: due to mental status - Medication Medications: Active Medications Generic Name Dose Route Start Last Admin Trade Name Freq PRN Reason Stop Dose Admin Albuterol Sulfate 2 puff 10/23/19 01:53 10/23/19 02:14 Proventil Hfa INH 2 puff Q4H PRN Administration SOB/WHEEZE Aspirin 325 mg 10/23/19 09:00 10/23/19 08:33 Ecotrin PO 325 mg DAILY KADEEM Administration Enoxaparin Sodium 100 mg 10/23/19 09:00 10/23/19 08:32 Lovenox SC 100 mg [id number],[id number] KADEEM Administration Enoxaparin Sodium 100 mg 10/22/19 23:45 10/23/19 02:14 Lovenox SC 10/24/19 01:00 100 mg NOW KADEEM Administration Famotidine 20 mg 10/23/19 09:00 10/23/19 08:33 Pepcid PO 20 mg BID KADEEM Administration Nitroglycerin 0.5 inch 10/23/19 09:00 10/23/19 08:32 Nitro-Bid 2% Ointment TOP 0.5 inch Q12HR KADEEM Administration - Exam General Appearance: NAD Neck: supple, symmetric, no thyromegaly, JVD Heart: RRR, no gallops, no rubs, normal peripheral pulses Respiratory: no wheezes, no rales, normal chest expansion, rhonchi Gastrointestinal: soft, non-distended, normal bowel sounds, no guarding, no rigidity Extremities: no cyanosis, no clubbing Psychiatric: oriented to person, oriented to place, somnolent Psychiatric - other findings: following verbal commands to some extent Hosp A/P - Plan DVT proph w/lovenox Toxic Metabolic Encephalopathy NSTEMI Single vessel CAD (RCA) - Last Cath 08/03 Acute on chronic systolic HF - EF 25% Polysubstance abuse Obesity BMI 31.2 CKD 2 HTN Tob dep PLAN: Gentle diuresis Await Cardiology input Await MRI brain On ASA/Lovenox/Statins Add low dose ACEI Avoid betablockers due to polysubstance abuse Add NTG patch COVID pending RN called - PT has NSVT. Await Cardio input
[2019-10-23] MEDS ORDERED: Furosemide 40 MG/4 ML VIAL SLOW IVP SCH (09:00)
[2019-10-23] MEDS ORDERED: Enoxaparin Sodium 40 MG/0.4 ML SYRINGE SC SCH (09:00)
[2019-10-23] MEDS ORDERED: D5 0.9% NS w/ 20 mEq KCl 1,000 ML IV SCH (09:00)
[2019-10-23] MEDS ORDERED: Calcium Carbonate 500 MG ChewTAB PO PRN (09:05)
[2019-10-23] MEDS ORDERED: Bisacodyl 10 MG SUPP PR PRN (09:05)
[2019-10-23] MEDS: Furosemide 20 MG/2 ML VIAL SLOW IVP SCH (10:41)
[2019-10-23] MEDS: Carvedilol 3.125 MG TAB PO SCH (16:18)
[2019-10-23 19:25] LABS: SARS-CoV-2 MS2 Positive; SARS-CoV-2 N Gene Negative; SARS-CoV-2 S Gene Negative; SARS-CoV-2 orf1ab Negative
[2019-10-23] MEDS: Atorvastatin Calcium 40 MG TAB PO SCH (19:35)
--- NOTE | 2019-10-23 21:05 | CON ---
DATE OF CONSULTATION: 10/23/2019 REASON FOR CONSULTATION: Increased troponin in a patient with severe cardiomyopathy, single-vessel coronary disease, and polysubstance abuse. PRIMARY PHYSICAL CHEMIST: Bismark Norris MD HISTORY OF PRESENT ILLNESS: Mr. Dawkins is a 44-year-old gentleman, who was brought to the hospital yesterday with altered mental status. The patient has a history of polysubstance abuse. As part of the evaluation, troponin levels were drawn. The patient was able to answer commands appropriately, but was somnolent last night. He had a history of methamphetamine abuse. On July 2018, he was diagnosed with dilated cardiomyopathy with single-vessel coronary disease. He was fitted for a LifeVest at that time, was not wearing the LifeVest in the ED. In the ED, it was found that he had a possible acute infarct in the left thalamus. REVIEW OF SYSTEMS: Please see the notes in the chart. CURRENT MEDICATION: He is on: 1. Aspirin. 2. Atorvastatin. 3. Enoxaparin. 4. Furosemide. 5. Lisinopril. The patient's current status is rule out COVID. The test is pending. PHYSICAL EXAMINATION: Blood pressure is 140/94, pulse is just over 100, it is sinus on the monitor. As per current recommendations to minimize contact with possible COVID patients, no exam was done today. This will be done tomorrow if the COVID test is negative. PERTINENT LABORATORY DATA: The toxicology screen was positive from amphetamines and methamphetamines. EKG revealed sinus tachycardia, no acute changes. Pertinent troponin 3.424. ASSESSMENT: 1. Polysubstance abuse. 2. Altered mental status. 3. Non ST-elevation myocardial infarction, likely due to demand ischemia with underlying coronary disease and cardiomyopathy. PLAN: 1. We will increase carvedilol. 2. COVID test is pending. Dr. Norris to resume case tomorrow if COVID test is back. Further evaluation will be done at that time. Medical therapy seems most appropriate. 3. Echocardiogram after the COVID test is back. Job ID: [id number]
[2019-10-24 05:43] LABS: #Eosinphils 0.5 thou/uL (0.0-0.7); #Lymphocytes 1.7 thou/uL (1.20-3.40); #Monocytes 0.8 thou/uL (0.11-0.59); #Neutrophils 7.8 thou/uL (1.40-6.50); %Basophils 0.3 % (0.0-1.0); %Eosinophils 4.6 % (0.0-10.0); %Lymphocytes 15.7 % (21.0-51.0); %Monocytes 7.5 % (0.0-10.0); Mean Corpuscular HGB CONC 31.8 g/dL (32.0-36.0); Mean Corpuscular Hemoglobin 28.3 pg (27.0-31.0); Mean Corpuscular Volume 88.9 fL (78.0-98.0); Mean Platelet Volume 7.7 fL (7.4-10.4); Platelet Count 308 thou/uL (130-400); RBC Distribution Width 12.8 % (11.5-14.5); Red Blood Cell (RBC) Count 5.32 mill/uL (4.70-6.10); White Blood Cell (WBC) Count 10.9 thou/uL (4.8-10.8)
[2019-10-24 06:05] LABS: ALT (SGPT) 20 U/L (8-55); AST (SGOT) 32 U/L (5-34); Albumin 3.4 g/dL (3.5-5.0); Alkaline Phosphatase 74 U/L (40-110); Anion Gap 14 mmol/L (10-20); BUN (Urea Nitrogen) 18 mg/dL (8.9-20.6); Calc. Creatinine Clearance 107 mL/min (70-130); Calcium 8.6 mg/dL (7.8-10.44); Carbon Dioxide 22 mmol/L (22-29); Chloride 104 mmol/L (98-107); Estimated GFR-MDRD 65; Globulin 2.3 g/dL (2.4-3.5); Glucose 142 mg/dL (70-105); Magnesium 1.7 mg/dL (1.6-2.6); Potassium 3.5 mmol/L (3.5-5.1); Protein, Total 5.7 g/dL (6.0-8.3); Sodium 136 mmol/L (136-145)
[2019-10-24 06:38] LABS: CKMB 8.1 ng/mL (0-6.6)
[2019-10-24] MEDS: Enoxaparin Sodium 100 MG/ML SYRINGE SC SCH (08:20)
[2019-10-24] MEDS: Nitroglycerin 2% Ointment 1 INCH/1 GM Packet TOP SCH ×2 (08:30→19:55)
[2019-10-24] MEDS: Aspirin 325 mg Enteric Coated Tablet PO SCH (08:30)
[2019-10-24] MEDS: Famotidine 20 MG TAB PO SCH ×2 (08:31→19:55)
[2019-10-24] MEDS: Carvedilol 3.125 MG TAB PO SCH ×2 (08:31→18:00)
[2019-10-24] MEDS: Furosemide 20 MG/2 ML VIAL SLOW IVP SCH (08:31)
[2019-10-24] MEDS ORDERED: Lisinopril 2.5 MG TAB PO SCH (09:00)
--- NOTE | 2019-10-24 09:15 | ULT ---
Ultrasound Doppler duplex carotid: DATE: 10/24/2019 HISTORY: 44-year-old male with CVA TECHNIQUE: Grayscale, color-flow, and spectral analysis, of major arteries of neck FINDINGS: Little or no plaque visualized. Vertebral artery flow antegrade bilaterally. Highest peak systolic velocities in the internal carotid arteries are 55 cm/s bilaterally. ICA/CCA ratios are 0.9 on the right and 0.7 on the left. IMPRESSION: No hemodynamically significant stenosis identified.
[2019-10-24] MEDS ORDERED: Magnevist 469MG/ML 20 ML VIAL ONE (09:30)
--- NOTE | 2019-10-24 10:13 | PDOC.HOSPP ---
- Subjective Encounter Date: 10/24/19 Encounter Time: 08:15 Subjective: no weakness or chest pain has some sob but no fever is eating breakfast - Objective Vital Signs & Weight: Vital Signs (12 hours) Temp Pulse Resp BP Pulse Ox 10/24/19 07:23 97.8 F 97 18 130/97 H 94 L 10/24/19 04:12 97.6 F 108 H 20 165/116 H 97 10/24/19 00:10 98.4 F 95 20 153/114 H 96 Weight Weight 215 lb 6.4 oz I&O: 10/23/19 10/24/19 10/25/19 06:59 06:59 06:59 Intake Total 920 Output Total 350 Balance 570 Result Diagrams: 10/24/19 05:16 10/24/19 05:16 Hospitalist ROS - Medication Medications: Active Medications Generic Name Dose Route Start Last Admin Trade Name Freq PRN Reason Stop Dose Admin Albuterol Sulfate 2 puff 10/23/19 01:53 10/23/19 19:45 Proventil Hfa INH 2 puff Q4H PRN Administration SOB/WHEEZE Aspirin 325 mg 10/23/19 09:00 10/24/19 08:30 Ecotrin PO 325 mg DAILY KADEEM Administration Atorvastatin Calcium 40 mg 10/23/19 21:00 10/23/19 19:35 Lipitor PO 40 mg HS KADEEM Administration Carvedilol 3.125 mg 10/23/19 17:00 10/24/19 08:31 Coreg PO 3.125 mg BID-WM KADEEM Administration Enoxaparin Sodium 100 mg 10/23/19 09:00 10/24/19 08:20 Lovenox SC Not Given [id number] KADEEM Famotidine 20 mg 10/23/19 09:00 10/24/19 08:31 Pepcid PO 20 mg BID KADEEM Administration Furosemide 20 mg 10/23/19 09:00 10/24/19 08:31 Lasix SLOW IVP 20 mg DAILY KADEEM Administration Lisinopril 2.5 mg 10/24/19 09:00 10/24/19 08:30 Zestril PO 2.5 mg DAILY KADEEM Administration Nitroglycerin 0.5 inch 10/23/19 09:00 10/24/19 08:30 Nitro-Bid 2% Ointment TOP 0.5 inch Q12HR KADEEM Administration - Exam General Appearance: awake alert Eye: anicteric sclera ENT: no oropharyngeal lesions, dry oral mucosa Neck: supple, no JVD Heart: RRR, no murmur Respiratory: no wheezes, no rales Gastrointestinal: soft, non-tender, non-distended, normal bowel sounds Extremities: no cyanosis, no edema Neurological: cranial nerve grossly intact, no focal deficits Psychiatric: normal affect, A&O x 3 Hosp A/P (1) Acute exacerbation of CHF (congestive heart failure) Code(s): I50.9 - HEART FAILURE, UNSPECIFIED Status: Acute Qualifiers: Heart failure type: combined systolic and diastolic Qualified Code(s): I50.43 - Acute on chronic combined systolic (congestive) and diastolic ( congestive) heart failure (2) Acute CVA (cerebrovascular accident) Code(s): I63.9 - CEREBRAL INFARCTION, UNSPECIFIED Status: Acute (3) NSTEMI (non-ST elevated myocardial infarction) Code(s): I21.4 - NON-ST ELEVATION (NSTEMI) MYOCARDIAL INFARCTION Status: Acute (4) Methamphetamine abuse Code(s): F15.10 - OTHER STIMULANT ABUSE, UNCOMPLICATED Status: Chronic (5) AMS (altered mental status) Code(s): R41.82 - ALTERED MENTAL STATUS, UNSPECIFIED Status: Acute Qualifiers: Altered mental status type: transient alteration of awareness Qualified Code(s): R40.4 - Transient alteration of awareness (6) CAD (coronary artery disease) Code(s): I25.10 - ATHSCL HEART DISEASE OF [place] CORONARY ARTERY W/O ANG PCTRS Status: Chronic Qualifiers: Coronary Disease-Associated Artery/Lesion type: [place] artery [place] vs. transplanted heart: [place] heart Associated angina: without angina Qualified Code(s): I25.10 - Atherosclerotic heart disease of [place] coronary artery without angina pectoris (7) Dilated cardiomyopathy Code(s): I42.0 - DILATED CARDIOMYOPATHY Status: Chronic (8) Hypertension Code(s): I10 - ESSENTIAL (PRIMARY) HYPERTENSION Status: Chronic Qualifiers: Hypertension type: essential hypertension Qualified Code(s): I10 - Essential (primary) hypertension - Plan await MRI results, clinically has good strength in all [address] showed left thalamic cva with edema, hold lovenox untill MRI results are available continue asp, lipitor, coreg, lasix, lisnopril, nitropaste echo is pending, prior ef of 25%
--- NOTE | 2019-10-24 15:42 | MRI ---
Exam: Brain MRI with and without contrast HISTORY: Abnormal lesion in the left thalamus on recent head CT COMPARISON: None FINDINGS: Limited evaluation due to motion degradation on multiple sequences Gradient echo sequence: No hemorrhage Calvarium: Appropriate T1 marrow signal intensity Midline brain parenchyma: Unremarkable Cerebrum:No parenchymal mass, mass effect or midline shift. Brain volume, age-appropriate. Cortical g ray-white matter differentiation is preserved. T2 and FLAIR white matter hyperintensities due to chronic small vessel ischemic change. There is T2 and FLAIR hyperintensity involving the midline supe rior aspect of the midbrain, extending into the left thalamus. Associated restricted diffusion, compatible with acute infarct. Ventricles: No evidence of hydrocephalus. Sinuses and mastoid air cells: Minimal mucosal thickening of the paranasal sinuses. Adequate mastoid air cell aeration Diffusion: Restricted diffusion involving the left thalamus, extending along the left thalamic white matter tracts and involving the upper midbrain. Postcontrast images: No pathologic enhancement of the brain parenchyma. IMPRESSION: 1. Acute infarct involving the left thalamus extending into the left midbrain, along the white matter tract
[2019-10-24] MEDS: Atorvastatin Calcium 40 MG TAB PO SCH (19:55)
[2019-10-25] MEDS ORDERED: Spironolactone 25 MG TAB PO SCH (09:00)
[2019-10-25] MEDS: Famotidine 20 MG TAB PO SCH ×2 (09:54→20:16)
[2019-10-25] MEDS: Lisinopril 5 MG TAB PO SCH ×2 (09:54→20:16)
[2019-10-25] MEDS: Carvedilol 3.125 MG TAB PO SCH ×2 (09:54→16:59)
[2019-10-25] MEDS: Aspirin 325 mg Enteric Coated Tablet PO SCH (09:54)
[2019-10-25] MEDS: Furosemide 20 MG/2 ML VIAL SLOW IVP SCH (09:55)
--- NOTE | 2019-10-25 09:57 | PDOC.HOSPP ---
- Subjective Encounter Date: 10/25/19 Encounter Time: 09:56 Subjective: pt up in bed no complains - Objective Vital Signs & Weight: Vital Signs (12 hours) Temp Pulse Resp BP BP Pulse Ox 10/25/19 07:00 98.8 F 97 15 143/86 H 90 L 10/25/19 02:49 98.8 F 105 H 14 137/85 95 10/24/19 23:43 98.1 F 95 14 113/82 97 Weight Weight 211 lb 3.2 oz I&O: 10/24/19 10/25/19 10/26/19 06:59 06:59 06:59 Intake Total 920 240 Output Total 350 Balance 570 240 Result Diagrams: 10/24/19 05:16 10/24/19 05:16 Hospitalist ROS - Review of Systems Cardiovascular: denies: chest pain, palpitations, orthopnea, paroxysmal noc. dyspnea, edema, light headedness, other Gastrointestinal: denies: nausea, vomiting, abdominal pain, diarrhea, constipation, melena, hematochezia, other Genitourinary: denies: dysuria, frequency, incontinence, hematuria, retention, other - Medication Medications: Active Medications Generic Name Dose Route Start Last Admin Trade Name Freq PRN Reason Stop Dose Admin Acetaminophen 650 mg 10/22/19 22:10 10/25/19 06:22 Tylenol PO 650 mg Q4H PRN Administration Headache/Fever/Mild Pain (1-3) Albuterol Sulfate 2 puff 10/23/19 01:53 10/23/19 19:45 Proventil Hfa INH 2 puff Q4H PRN Administration SOB/WHEEZE Aspirin 325 mg 10/23/19 09:00 10/24/19 08:30 Ecotrin PO 325 mg DAILY KADEEM Administration Atorvastatin Calcium 40 mg 10/23/19 21:00 10/24/19 19:55 Lipitor PO 40 mg HS KADEEM Administration Carvedilol 6.25 mg 10/24/19 17:00 10/24/19 18:00 Coreg PO 6.25 mg BID-WM KADEEM Administration Famotidine 20 mg 10/23/19 09:00 10/24/19 19:55 Pepcid PO 20 mg BID KADEEM Administration Furosemide 20 mg 10/23/19 09:00 10/24/19 08:31 Lasix SLOW IVP 20 mg DAILY KADEEM Administration - Exam Heart: negative: RRR, no murmur, no gallops, no rubs, normal peripheral pulses, irregular, diminshed peripheral pulses, murmur present, II/IV, III/IV Respiratory: negative: CTAB, no wheezes, no rales, no ronchi, normal chest expansion, no tachypnea, normal percussion, rales, rhonchi, tachypneic, wheezes Gastrointestinal: negative: soft, non-tender, non-distended, normal bowel sounds , no palpable masses, no hepatomegaly, no splenomegaly, no bruit, no guarding, no rigidity, tender to palpation, distended, diminished bowl sounds, voluntary guarding Psychiatric: A&O x 3 Hosp A/P - Plan Hosp A/P (1) Acute exacerbation of CHF (congestive heart failure) Code(s): I50.9 - HEART FAILURE, UNSPECIFIED Status: Acute Qualifiers: Heart failure type: combined systolic and diastolic Qualified Code(s): I50.43 - Acute on chronic combined systolic (congestive) and diastolic ( congestive) heart failure (2) Acute CVA (cerebrovascular accident) Code(s): I63.9 - CEREBRAL INFARCTION, UNSPECIFIED Status: Acute (3) NSTEMI (non-ST elevated myocardial infarction) Code(s): I21.4 - NON-ST ELEVATION (NSTEMI) MYOCARDIAL INFARCTION Status: Acute (4) Methamphetamine abuse Code(s): F15.10 - OTHER STIMULANT ABUSE, UNCOMPLICATED Status: Chronic (5) AMS (altered mental status) Code(s): R41.82 - ALTERED MENTAL STATUS, UNSPECIFIED Status: Acute Qualifiers: Altered mental status type: transient alteration of awareness Qualified Code(s): R40.4 - Transient alteration of awareness (6) CAD (coronary artery disease) Code(s): I25.10 - ATHSCL HEART DISEASE OF [place] CORONARY ARTERY W/O ANG PCTRS Status: Chronic Qualifiers: Coronary Disease-Associated Artery/Lesion type: [place] artery [place] vs. transplanted heart: [place] heart Associated angina: without angina Qualified Code(s): I25.10 - Atherosclerotic heart disease of [place] coronary artery without angina pectoris (7) Dilated cardiomyopathy Code(s): I42.0 - DILATED CARDIOMYOPATHY Status: Chronic (8) Hypertension Code(s): I10 - ESSENTIAL (PRIMARY) HYPERTENSION Status: Chronic Qualifiers: Hypertension type: essential hypertension Qualified Code(s): I10 - Essential (primary) hypertension - Plan await MRI results, clinically has good strength in all [address] showed left thalamic cva with edema, hold lovenox untill MRI results are available continue asp, lipitor, coreg, lasix, lisnopril, nitropaste echo is pending, prior ef of 25% 10/24 pt will need life vest
--- NOTE | 2019-10-25 13:14 | CON ---
DATE OF CONSULTATION: 10/25/2019 REASON FOR CONSULTATION: Altered mental status. HISTORY OF PRESENT ILLNESS: A 44-year-old male with history significant for polysubstance abuse , admitted to [facility] on 10/22/2019. Police were called to the patient's residence, who called EMS after the patient was found extremely confused at the scene. Per ED record, he was not in custody and was found to have narcotics at home. He is a poor historian and has a history of drug abuse. On review of the ED records, the had stated that he has been altered for 2 days because of meth use. He has history of chest pain and had dilated cardiomyopathy. Echocardiography was done last year, which showed an ejection fraction of 25% to 30%. Head CT was done in the emergency room, which showed subtle abnormality in the left thalamus, which could represent edema from an acute infarct. He was COVID ruled out, so further testing was delayed until yesterday when he came back negative for COVID. Echocardiogram was done, which showed ejection fraction of 25% to 30% and evidence of mitral regurgitation. Brain MRI showed acute infarct involving the left thalamus extending to the left midbrain, along with the white matter tract. Carotid Dopplers did not reveal any hemodynamically significant stenosis. REVIEW OF SYSTEMS: The patient denies nausea, vomiting, headache, dizziness, or focal weakness. HOME MEDICATIONS: None. OTHER ACTIVE MEDICATIONS: 1. Tylenol. 2. Lisinopril. 3. Albuterol sulfate. 4. Albuterol/ipratropium. 5. Carvedilol. 6. Bisacodyl. 7. Docusate. 8. Clonidine. 9. Famotidine. 10. Atorvastatin. 11. Furosemide. 12. Spironolactone. 13. Aspirin. 14. Calcium. PAST MEDICAL HISTORY: Hypertension, congestive heart failure, and coronary artery disease. PAST SURGICAL HISTORY: Cholecystectomy. SOCIAL HISTORY: Smoker. Uses methamphetamine. Lives with his . Vital Signs & Weight: Vital Signs (12 hours) Temp Pulse Resp BP BP Pulse Ox 10/25/19 07:00 98.8 F 97 15 143/86 H 90 L 10/25/19 02:49 98.8 F 105 H 14 137/85 95 10/24/19 23:43 98.1 F 95 14 113/82 97 Weight Weight 211 lb 3.2 oz I&O: 10/24/19 10/25/19 10/26/19 06:59 06:59 06:59 Intake Total 920 240 Output Total 350 Balance 570 240 - Review of Systems Cardiovascular: denies: chest pain, palpitations, orthopnea, paroxysmal noc. dyspnea, edema, light headedness, other Gastrointestinal: denies: nausea, vomiting, abdominal pain, diarrhea, constipation, melena, hematochezia, other Genitourinary: denies: dysuria, frequency, incontinence, hematuria, retention, other - Medication Medications: Active Medications Generic Name Dose Route Start Last Admin Trade Name Freq PRN Reason Stop Dose Admin Acetaminophen 650 mg 10/22/19 22:10 10/25/19 06:22 Tylenol PO 650 mg Q4H PRN Administration Headache/Fever/Mild Pain (1-3) Albuterol Sulfate 2 puff 10/23/19 01:53 10/23/19 19:45 Proventil Hfa INH 2 puff Q4H PRN Administration SOB/WHEEZE Aspirin 325 mg 10/23/19 09:00 10/24/19 08:30 Ecotrin PO 325 mg DAILY KADEEM Administration Atorvastatin Calcium 40 mg 10/23/19 21:00 10/24/19 19:55 Lipitor PO 40 mg HS KADEEM Administration Carvedilol 6.25 mg 10/24/19 17:00 10/24/19 18:00 Coreg PO 6.25 mg BID-WM KADEEM Administration Famotidine 20 mg 10/23/19 09:00 10/24/19 19:55 Pepcid PO 20 mg BID KADEEM Administration Furosemide 20 mg 10/23/19 09:00 10/24/19 08:31 Lasix SLOW IVP 20 mg DAILY KADEEM Administration PHYSICAL EXAMINATION: CVS: Regular rate and rhythm. CHEST: Clear. ABDOMEN: Soft. NEUROLOGIC: Mental status; the patient is alert and oriented to person, place, and time. Cranial nerves 2 through 12 intact. Motor; muscle tone and bulk are normal. Strength 5/5 bilaterally. Sensory intact. Cerebellar; [id number] testing intact. Reflexes; 2+ bilaterally. Gait; not tested due to the patient's safety reason. DIAGNOSTIC STUDIES: I reviewed the labs, which are unremarkable. MRI of the brain reviewed, which was consistent with acute infarction. ASSESSMENT AND PLAN: A 44-year-old male with a history significant for coronary artery disease and polysubstance abuse, admitted for altered mental status and now has acute stroke. MRI of the brain reviewed, which shows acute infarction involving the left thalamus. Carotid Dopplers were unremarkable for significant stenosis. Echocardiography showed ejection fraction of 25% to 30% and evidence of mitral regurgitation. Neuro checks every 4 hours. Continue aspirin and statin for secondary stroke prevention. PT/OT/speech. Continue home medications. Continue medical management per Primary Team. We will continue to follow. Thank you for the consult. Job ID: [id number] DOUG
--- NOTE | 2019-10-25 15:36 | EEG ---
Referring Physician: Fiordaliza ROPER EEG # [id number] TEST TYPE: ROUTINE PORTABLE INPATIENT REPORT: This EEG was performed using 24 channel [employer] video digital EEG machine with 24 disc electrodes. This was a routine EEG recording. BACKGROUND: There is a nonsustained posterior background rhythm of 6-7 hertz. Minimal reactivity seen with eye opening and eye closure. HYPERVENTILATION: Was not performed. PHOTIC STIMULATION: No significant response seen with photic stimulation. SLEEP: Drowsiness is observed. EEG DIAGNOSIS: 1.) Intermittent irregular theta activity seen throughout the recording. 2.) Nonsustained slow posterior background rhythm. CLINICAL INTERPRETATION: THIS EEG IS CONSISTENT WITH MILD TO MODERATE GENERALIZED NONSPECIFIC CEREBRAL DYSFUNCTION. Senior Mainframe Programmer Analyst: [facility] Secretary: [email or web address] MTDD
[2019-10-25] MEDS: Atorvastatin Calcium 40 MG TAB PO SCH (20:16)
[2019-10-26] MEDS ORDERED: Carvedilol 6.25 MG TAB PO SCH (08:45)
[2019-10-26] MEDS: Spironolactone 25 MG TAB PO SCH (08:48)
[2019-10-26] MEDS: Famotidine 20 MG TAB PO SCH ×2 (08:49→20:36)
[2019-10-26] MEDS: Aspirin 325 mg Enteric Coated Tablet PO SCH (08:49)
[2019-10-26] MEDS: Furosemide 20 MG/2 ML VIAL SLOW IVP SCH (08:49)
[2019-10-26] MEDS: Lisinopril 5 MG TAB PO SCH ×2 (08:55→20:37)
[2019-10-26] MEDS: Carvedilol 3.125 MG TAB PO SCH (09:02)
[2019-10-26 11:38] LABS: Hemoglobin 16.1 g/dL (14.0-18.0); Platelet Count 305 thou/uL (130-400)
[2019-10-26 12:23] LABS: Troponin I 1.694 ng/mL (< 0.028)
--- NOTE | 2019-10-26 14:53 | PDOC.HOSPP ---
- Subjective Encounter Date: 10/26/19 Subjective: NEUROLOGY PROGRESS NOTE No acute events overnight. - Objective Vital Signs & Weight: Vital Signs (12 hours) Temp Pulse Resp BP BP BP Pulse Ox 10/26/19 11:36 98.5 F 92 18 152/100 H 10/26/19 09:55 91 140/98 H 10/26/19 09:01 94 L 10/26/19 08:55 106 H 160/119 H 10/26/19 08:48 160/119 H 10/26/19 07:50 97.7 F 105 H 16 192/131 H 10/26/19 04:43 135/95 H 10/26/19 03:32 98.9 F 113 H 20 135/95 H 95 Weight Weight 211 lb 9.6 oz I&O: 10/25/19 10/26/19 10/27/19 06:59 06:59 06:59 Intake Total 240 200 Balance 240 200 Result Diagrams: 10/26/19 11:24 10/26/19 11:24 Radiology Reviewed by me: Yes EKG Reviewed by me: Yes Hospitalist ROS - Review of Systems Constitutional: denies: fever, chills, sweats, weakness, malaise, other Eyes: denies: pain, vision change, conjunctivae inflammation, eyelid inflammation, redness, other ENT: denies: ear pain, ear discharge, nose pain, nose discharge, nose congestion , mouth pain, mouth swelling, throat pain, throat swelling, other Respiratory: denies: cough, dry, shortness of breath, hemoptysis, SOB with excertion, pleuritic pain, sputum, wheezing, other Cardiovascular: denies: chest pain, palpitations, orthopnea, paroxysmal noc. dyspnea, edema, light headedness, other Gastrointestinal: denies: nausea, vomiting, abdominal pain, diarrhea, constipation, melena, hematochezia, other Genitourinary: denies: dysuria, frequency, incontinence, hematuria, retention, other Musculoskeletal: denies: neck pain, shoulder pain, arm pain, back pain, hand pain, leg pain, foot pain, other Neurological: denies: weakness, numbness, incoordination, change in speech, confusion, seizures, other - Medication Medications: Active Medications Generic Name Dose Route Start Last Admin Trade Name Freq PRN Reason Stop Dose Admin Acetaminophen 650 mg 10/22/19 22:10 05/12/20 06:22 Tylenol PO 650 mg Q4H PRN Administration Headache/Fever/Mild Pain (1-3) Albuterol Sulfate 2 puff 10/23/19 01:53 10/23/19 19:45 Proventil Hfa INH 2 puff Q4H PRN Administration SOB/WHEEZE Aspirin 325 mg 10/23/19 09:00 10/26/19 08:49 Ecotrin PO 325 mg DAILY KADEEM Administration Atorvastatin Calcium 40 mg 10/23/19 21:00 10/25/19 20:16 Lipitor PO 40 mg HS KADEEM Administration Famotidine 20 mg 10/23/19 09:00 10/26/19 08:49 Pepcid PO 20 mg BID KADEEM Administration Furosemide 20 mg 10/23/19 09:00 10/26/19 08:49 Lasix SLOW IVP 20 mg DAILY KADEEM Administration Lisinopril 10 mg 10/26/19 09:00 10/26/19 08:55 Zestril PO 10 mg BID KADEEM Administration Spironolactone 25 mg 10/26/19 08:00 10/26/19 08:48 Aldactone PO 25 mg QAM-WM KADEEM Administration - Exam General Appearance: awake alert Eye: PERRL, anicteric sclera ENT: normocephalic atraumatic, no oropharyngeal lesions Neck: supple, symmetric, no JVD, no thyromegaly Heart: RRR, no murmur, no gallops Respiratory: CTAB Gastrointestinal: soft Extremities: no cyanosis, no clubbing, no edema Skin: normal turgor, no lesions, no rashes Neurological: cranial nerve grossly intact, normal sensation to touch, no new deficit Musculoskeletal: normal tone, normal strength Hosp A/P (1) Acute CVA (cerebrovascular accident) Code(s): I63.9 - CEREBRAL INFARCTION, UNSPECIFIED Status: Acute (2) AMS (altered mental status) Code(s): R41.82 - ALTERED MENTAL STATUS, UNSPECIFIED Status: Acute Qualifiers: Altered mental status type: transient alteration of awareness Qualified Code(s): R40.4 - Transient alteration of awareness (3) Acute exacerbation of CHF (congestive heart failure) Code(s): I50.9 - HEART FAILURE, UNSPECIFIED Status: Acute Qualifiers: Heart failure type: combined systolic and diastolic Qualified Code(s): I50.43 - Acute on chronic combined systolic (congestive) and diastolic ( congestive) heart failure (4) NSTEMI (non-ST elevated myocardial infarction) Code(s): I21.4 - NON-ST ELEVATION (NSTEMI) MYOCARDIAL INFARCTION Status: Acute (5) CAD (coronary artery disease) Code(s): I25.10 - ATHSCL HEART DISEASE OF [place] CORONARY ARTERY W/O ANG PCTRS Status: Chronic Qualifiers: Coronary Disease-Associated Artery/Lesion type: [place] artery [place] vs. transplanted heart: [place] heart Associated angina: without angina Qualified Code(s): I25.10 - Atherosclerotic heart disease of [place] coronary artery without angina pectoris (6) Dilated cardiomyopathy Code(s): I42.0 - DILATED CARDIOMYOPATHY Status: Chronic (7) Methamphetamine abuse Code(s): F15.10 - OTHER STIMULANT ABUSE, UNCOMPLICATED Status: Chronic (8) Chest pain Code(s): R07.9 - CHEST PAIN, UNSPECIFIED Status: Acute - Plan 44 year old male with altered mental status and polysubstance abuse. MRI Brain reviewed which was consistent with acute infarction. EEG reviewed which did not reveal seizure activity. Continue home medications. Continue aspirin/ lipitor and plavix for secondary stroke prevention. Echocardiogram showed EF 25-30 percent Patient counseled on illegal drug abuse. He should follow up with cardiology and neurology as outpatient after discharge for further management. Plan discussed with patient and primary attending Dr. Warren
[2019-10-26] MEDS: Carvedilol 6.25 MG TAB PO SCH (16:16)
--- NOTE | 2019-10-26 16:31 | PDOC.HOSPP ---
- Subjective Encounter Date: 10/26/19 Encounter Time: 10:30 Subjective: pt up in bed no complains. He has been eating chips. I have educated him on not to do so. - Objective Vital Signs & Weight: Vital Signs (12 hours) Temp Pulse Resp BP BP BP Pulse Ox 10/26/19 16:16 168/109 H 10/26/19 15:54 97.8 F 95 20 168/109 H 10/26/19 11:36 98.5 F 92 18 152/100 H 10/26/19 09:55 91 140/98 H 10/26/19 09:01 94 L 10/26/19 08:55 106 H 160/119 H 10/26/19 08:48 160/119 H 10/26/19 07:50 97.7 F 105 H 16 192/131 H 10/26/19 04:43 135/95 H Weight Weight 211 lb 9.6 oz I&O: 10/25/19 10/26/19 10/27/19 06:59 06:59 06:59 Intake Total 240 200 Balance 240 200 Result Diagrams: 10/26/19 11:24 10/26/19 11:24 Hospitalist ROS - Review of Systems Cardiovascular: denies: chest pain, palpitations, orthopnea, paroxysmal noc. dyspnea, edema, light headedness, other Gastrointestinal: denies: nausea, vomiting, abdominal pain, diarrhea, constipation, melena, hematochezia, other Genitourinary: denies: dysuria, frequency, incontinence, hematuria, retention, other - Medication Medications: Active Medications Generic Name Dose Route Start Last Admin Trade Name Contrerasq PRN Reason Stop Dose Admin Acetaminophen 650 mg 10/22/19 22:10 10/25/19 06:22 Tylenol PO 650 mg Q4H PRN Administration Headache/Fever/Mild Pain (1-3) Albuterol Sulfate 2 puff 10/23/19 01:53 10/23/19 19:45 Proventil Hfa INH 2 puff Q4H PRN Administration SOB/WHEEZE Aspirin 325 mg 10/23/19 09:00 10/26/19 08:49 Ecotrin PO 325 mg DAILY KADEEM Administration Atorvastatin Calcium 40 mg 10/23/19 21:00 10/25/19 20:16 Lipitor PO 40 mg HS KADEEM Administration Carvedilol 12.5 mg 10/26/19 17:00 10/26/19 16:16 Coreg PO 12.5 mg BID-WM KADEEM Administration Famotidine 20 mg 10/23/19 09:00 10/26/19 08:49 Pepcid PO 20 mg BID KADEEM Administration Furosemide 20 mg 10/23/19 09:00 10/26/19 08:49 Lasix SLOW IVP 20 mg DAILY KADEEM Administration Lisinopril 10 mg 10/26/19 09:00 10/26/19 08:55 Zestril PO 10 mg BID KADEEM Administration Spironolactone 25 mg 10/26/19 08:00 10/26/19 08:48 Aldactone PO 25 mg QAM-WM KADEEM Administration - Exam Neck: negative: supple, symmetric, no JVD, no thyromegaly, no lymphadenopathy, no carotid bruit, JVD Heart: negative: RRR, no murmur, no gallops, no rubs, normal peripheral pulses, irregular, diminshed peripheral pulses, murmur present, II/IV, III/IV Respiratory: negative: CTAB, no wheezes, no rales, no ronchi, normal chest expansion, no tachypnea, normal percussion, rales, rhonchi, tachypneic, wheezes Gastrointestinal: negative: soft, non-tender, non-distended, normal bowel sounds , no palpable masses, no hepatomegaly, no splenomegaly, no bruit, no guarding, no rigidity, tender to palpation, distended, diminished bowl sounds, voluntary guarding Hosp A/P - Plan Hosp A/P (1) Acute exacerbation of CHF (congestive heart failure) Code(s): I50.9 - HEART FAILURE, UNSPECIFIED Status: Acute Qualifiers: Heart failure type: combined systolic and diastolic Qualified Code(s): I50.43 - Acute on chronic combined systolic (congestive) and diastolic ( congestive) heart failure (2) Acute CVA (cerebrovascular accident) Code(s): I63.9 - CEREBRAL INFARCTION, UNSPECIFIED Status: Acute (3) NSTEMI (non-ST elevated myocardial infarction) Code(s): I21.4 - NON-ST ELEVATION (NSTEMI) MYOCARDIAL INFARCTION Status: Acute (4) Methamphetamine abuse Code(s): F15.10 - OTHER STIMULANT ABUSE, UNCOMPLICATED Status: Chronic (5) AMS (altered mental status) Code(s): R41.82 - ALTERED MENTAL STATUS, UNSPECIFIED Status: Acute Qualifiers: Altered mental status type: transient alteration of awareness Qualified Code(s): R40.4 - Transient alteration of awareness (6) CAD (coronary artery disease) Code(s): I25.10 - ATHSCL HEART DISEASE OF [place] CORONARY ARTERY W/O ANG PCTRS Status: Chronic Qualifiers: Coronary Disease-Associated Artery/Lesion type: [place] artery [place] vs. transplanted heart: [place] heart Associated angina: without angina Qualified Code(s): I25.10 - Atherosclerotic heart disease of [place] coronary artery without angina pectoris (7) Dilated cardiomyopathy Code(s): I42.0 - DILATED CARDIOMYOPATHY Status: Chronic (8) Hypertension Code(s): I10 - ESSENTIAL (PRIMARY) HYPERTENSION Status: Chronic Qualifiers: Hypertension type: essential hypertension Qualified Code(s): I10 - Essential (primary) hypertension - Plan await MRI results, clinically has good strength in all [address] showed left thalamic cva with edema, hold lovenox untill MRI results are available continue asp, lipitor, coreg, lasix, lisnopril, nitropaste echo is pending, prior ef of 25% 10/24 pt will need life vest 10/25 will continue asa/plavix/statin pt suppose to be on plavix but has not been taking it. His bp meds have been reconciled. waiting on lifevest.
[2019-10-26] MEDS: Atorvastatin Calcium 40 MG TAB PO SCH (20:37)
[2019-10-27 08:01] VITALS: TEMP 98.7
[2019-10-27] MEDS: Lisinopril 5 MG TAB PO SCH (08:17)
[2019-10-27] MEDS: Furosemide 20 MG/2 ML VIAL SLOW IVP SCH (08:17)
[2019-10-27] MEDS: Carvedilol 6.25 MG TAB PO SCH (08:17)
[2019-10-27] MEDS: Spironolactone 25 MG TAB PO SCH (08:17)
[2019-10-27] MEDS: Famotidine 20 MG TAB PO SCH (08:17)
[2019-10-27] MEDS: Aspirin 325 mg Enteric Coated Tablet PO SCH (08:17)
[2019-10-27 10:16] VITALS: BP 135/90
[2019-10-27] MEDS ORDERED: Carvedilol 25 MG TAB PO SCH (17:00)
--- NOTE | 2019-10-27 19:13 | DIS ---
DATE OF ADMISSION: 10/22/2019 DATE OF DISCHARGE: 10/27/2019 DISCHARGE DISPOSITION: Home. PRIMARY DISCHARGE DIAGNOSES: Acute on chronic congestive heart failure exacerbation with systolic dysfunction, methamphetamine abuse, acute cerebrovascular accident , non-ST elevation myocardial infarction, acute metabolic encephalopathy on arrival secondary to substance abuse, coronary artery disease, dilated cardiomyopathy, and hypertension. PROCEDURES DONE DURING HOSPITALIZATION: Echo with 2D Doppler done showed EF of 15% to 20%. MRI brain showed acute infarct involving the left thalamus extending into left midbrain along the white matter tract. Carotid Doppler showed no hemodynamically significant stenosis. Influenza A and B antigens were negative. COVID-19 PCR not detected. Urine drug screen was positive for amphetamines and methamphetamines. BUN 18, creatinine 1.21. Troponin I peaked up to 3.71. CK- MB peaking up to 8.1. Total cholesterol 97, triglycerides 49, LDL 52, HDL 35. BNP 1122, H and H 16 and 51, platelet count 305. DISCHARGE MEDICATIONS: 1. Aspirin 81 mg p.o. daily. 2. Lipitor 40 mg p.o. at bedtime. 3. Carvedilol 25 mg twice daily. 4. Plavix 75 mg daily. 5. Pepcid 20 mg twice daily. 6. Lasix 40 mg daily. 7. Lisinopril 40 mg daily. 8. Spironolactone 25 mg daily. ALLERGIES: NO KNOWN DRUG ALLERGIES. DISCHARGE PLAN: The patient to follow up with his primary care physician, Sharri Zamora, nurse practitioner on 10/31/2019 at 1:15 p.m. The patient needs to follow up with cardiac rehab at [facility]. INPATIENT CONSULT: Dr. Norris for Cardiology. BRIEF COURSE DURING HOSPITALIZATION: The patient initially got admitted on the with complaints of shortness of breath and was also found to be confused with acute metabolic encephalopathy. His urine drug screen came back positive for amphetamines and methamphetamines. The patient has known chronic history of substance use with cardiomyopathy. His prior EF was 25% to 30%, but current echo showed EF reducing down to 10% to 15%. The patient had increasing troponin levels as well. He was also found to have had acute CVA in the thalamic area going down to mid brain. He was counseled with regard to complete cessation of street drugs and medication compliance. He is hemodynamically stable. The patient was on Lovenox for non-ST elevation [place], which was held due to edema seen on the initial CAT scan with acute CVA. He has remained hemodynamically stable. The patient was given option of getting a LifeVest, but due to financial reasons and the patient declining the same, this has not been arranged prior to discharge. Please note, I have seen and examined the patient on the day of discharge. He has been cleared for discharge by Dr. Norris. Job ID: [id number] MTDD
--- NOTE | 2019-10-29 12:45 | EKG ---
Test Reason : Blood Pressure : / mmHG Vent. Rate : 112 BPM Atrial Rate : 112 BPM P-R Int : 152 ms QRS Dur : 106 ms QT Int : 350 ms P-R-T Axes : 067 -37 107 degrees QTc Int : 477 ms Sinus tachycardia with occasional Premature ventricular complexes Possible Left atrial enlargement Left axis deviation Possible Anterior infarct , age undetermined T wave abnormality, consider lateral ischemia Abnormal ECG T wave inversion V5,V6 Confirmed by BURTON JACKSON M.D. ([id number]), newspaper photo editor ELMER CULLEN ([id number]) on 10/29/2019 12:44:48 PM Referred By: Confirmed By:BURTON JACKSON M.D.
== END 2019-10-27 15:46 | disposition home or self-care (01) | DRG 64 ==
LOC: ERS 18:56 → 2SW 21:40
PROVIDERS: ADMIT Internal Medicine; ATTEND Internal Medicine
DX: I63.89 Other cerebral infarction (principal); G92 Toxic encephalopathy; I50.23 Acute on chronic systolic (congestive) heart failure; I21.4 Non-ST elevation (NSTEMI) myocardial infarction; G93.6 Cerebral edema; I42.0 Dilated cardiomyopathy; I13.0 Hypertensive heart and chronic kidney disease with heart failure and stage 1 through stage 4 chronic kidney disease, or unspecified chronic kidney disease; F15.10 Other stimulant abuse, uncomplicated; I25.10 Atherosclerotic heart disease of native coronary artery without angina pectoris; Z20.828 Contact with and (suspected) exposure to other viral communicable diseases; E66.9 Obesity, unspecified; N18.2 Chronic kidney disease, stage 2 (mild); F17.210 Nicotine dependence, cigarettes, uncomplicated; R40.4 Transient alteration of awareness; R29.703 NIHSS score 3; Z68.31 Body mass index [BMI] 31.0-31.9, adult; Z90.49 Acquired absence of other specified parts of digestive tract
CPT/HCPCS: 36415; 70450; 70553; 71045; 80053; 80061; 80306; 80307; 81003; 81015; 82550; 82553; 82565; 83605; 83690; 83735; 83880; 84443; 84484; 85014; 85018; 85025; 85049; 87635; 87804; 93005; 93306; 93880; 95816; 95819; 96361; 96374; A9579; J1650; J1940; J2310; J3480; U0003

== ENCOUNTER 2020-06-19 08:14 | Inpatient (IN) | payer SELFPAY ==
[2020-06-19] MEDS ORDERED: Furosemide 40 MG/4 ML VIAL ONE ×2 (08:36→12:57)
[2020-06-19] MEDS ORDERED: Albuterol 200 PUFF (6.7GM INHALER) ONE (08:36)
[2020-06-19] MEDS ORDERED: Nitroglycerin 2% Ointment 1 INCH/1 GM Packet ONE (08:36)
[2020-06-19] MEDS ORDERED: Nitroglycerin 0.4 MG TAB 1 EACH ONE (08:36)
[2020-06-19] MEDS ORDERED: methylPREDNISolone Sod Succ/PF 125 MG/2 ML VIAL ONE (08:36)
[2020-06-19] MEDS ORDERED: Aspirin Chewable 81 MG TAB ONE (08:36)
--- NOTE | 2020-06-19 09:01 | RAD ---
RADIOGRAPH CHEST 1 VIEW: DATE: 06/19/2020 TIME: 8:49 AM HISTORY: 44-year-old male with dyspnea and chest pain COMPARISON: 10/22/2019 FINDINGS: Cardiomegaly, similar to prior study. Mild haziness with mildly increased attenuation at bilateral lung bases, perhaps minimally worse than prior study. No obvious large consolidation. No pneumothorax. IMPRESSION: Cardiomegaly and possible mild pulmonary interstitial edema, perhaps representing congestive heart fa ilure.
[2020-06-19 09:14] LABS: #Eosinphils 0.3 thou/uL (0.0-0.7); #Monocytes 1.1 thou/uL (0.11-0.59); #Neutrophils 11.2 thou/uL (1.40-6.50); %Basophils 0.3 % (0.0-1.0); %Eosinophils 2.3 % (0.0-10.0); %Lymphocytes 13.4 % (21.0-51.0); %Monocytes 7.4 % (0.0-10.0); %Neutrophils 76.6 % (42.0-75.0); Hemoglobin 14.7 g/dL (14.0-18.0); Mean Corpuscular HGB CONC 32.1 g/dL (32.0-36.0); Mean Corpuscular Hemoglobin 28.9 pg (27.0-31.0); Mean Platelet Volume 7.7 fL (7.4-10.4); Platelet Count 298 thou/uL (130-400); RBC Distribution Width 12.8 % (11.5-14.5); Red Blood Cell (RBC) Count 5.08 mill/uL (4.70-6.10); White Blood Cell (WBC) Count 14.6 thou/uL (4.8-10.8)
[2020-06-19 09:23] LABS: ALT (SGPT) 31 U/L (8-55); AST (SGOT) 28 U/L (5-34); Alkaline Phosphatase 83 U/L (40-110); Anion Gap 18 mmol/L (10-20); BUN (Urea Nitrogen) 19 mg/dL (8.9-20.6); Bilirubin, Total 1.2 mg/dL (0.2-1.2); Calc. Creatinine Clearance 0 mL/min (70-130); Carbon Dioxide 25 mmol/L (22-29); Chloride 102 mmol/L (98-107); Globulin 2.4 g/dL (2.4-3.5); Glucose 101 mg/dL (70-105); Magnesium 1.7 mg/dL (1.6-2.6); Potassium 4.6 mmol/L (3.5-5.1); Protein, Total 6.4 g/dL (6.0-8.3); Sodium 140 mmol/L (136-145)
[2020-06-19 09:46] LABS: CKMB 3.4 ng/mL (0-6.6)
[2020-06-19] MEDS ORDERED: Lorazepam 2 MG/ML VIAL ONE (10:29)
[2020-06-19 10:48] LABS: Bacteria/HPF None Seen HPF (None Seen); Bilirubin Negative (Negative); Blood, Urine Trace (Negative); Clarity Clear (Clear); Glucose, Urine (Dipstick) Normal (Negative); Ketone, Urine Negative (Negative); Leukocyte Negative Leu/uL (Negative); Nitrite Negative (Negative); Protein, Urine (Dipstick) Negative (Neg-Trace); RBC/HPF 0-3 HPF (0-3); Specific Gravity, Urine 1.009 (1.002-1.036); Squamous Epithelial None Seen HPF (0-3); Urobilinogen Normal mg/dL (Less than 2); WBC/HPF None Seen HPF (0-3); pH, Urine 5.5 (5.0-9.0)
--- NOTE | 2020-06-19 11:06 | PDOC.FPRHP ---
- History of Present Illness Chief Complaint: SOB History of Present Illness: 44 y/o M w/ PMHx HFrEF, HTN, hx polysubstance abuse, ischemic heart disease presents for SOB. Upon examination, patient has just received ativan and is a somewhat poor historian due to mental status. Reports he came to the ER for "knick knacks". Further questioning reveals he has been SOB at home although it is unclear how long. Endorses cough as well. He denies any chest pain, headache, vision changes, fever, chills, increased or decreased PO intake, edema. No known sick contacts. He has not been taking any of his medications at home. Denies recent drug use although UDS positive. ED Course: ASA, nitro paste, nitro SL, solumedrol, albuterol, lasix, ativan - Allergies/Adverse Reactions Allergies Allergy/AdvReac Type Severity Reaction Status Date / Time No Known Drug Allergies Allergy Verified 08/09/18 20:13 - Home Medications Medication Instructions Recorded Confirmed Type Atorvastatin Calcium [Lipitor] 40 mg PO HS #30 tab 08/12/18 10/23/19 Rx Famotidine [Pepcid] 20 mg PO BID #60 tab 08/12/18 10/23/19 Rx Nicotine [Nicoderm CQ] 14 mg TD Q24HR #7 patch 08/12/18 10/23/19 Rx Nitroglycerin [Nitrostat] 0.4 mg PO Q5MIN PRN #25 tab 08/12/18 10/23/19 Rx Aspirin [Ecotrin Low Strength] 81 mg PO DAILY #30 tab 10/26/19 Rx Atorvastatin Calcium [Lipitor] 40 mg PO HS #30 tab 10/26/19 Rx Carvedilol [Coreg] 25 mg PO BID-WM #60 tab 10/26/19 Rx Clopidogrel Bisulfate [Plavix] 75 mg PO DAILY #30 tab 10/26/19 Rx Furosemide [Lasix] 40 mg PO DAILY #30 tab 10/26/19 Rx Lisinopril [Zestril] 40 mg PO DAILY #30 tab 10/26/19 Rx Spironolactone [Aldactone] 25 mg PO QAM-WM #30 tab 10/26/19 Rx - History PMHx: CAD, HFrEF 15-20%, NSTEMI 10/2019, CVA PSHx: cholecystectomy FHx: noncontributory Social: Prior meth use, denies alcohol use. Former? smoker - quit 3-4 mo ago but last smoked this am. Previous 2PPD, started at age 13. - Review of Systems General: denies: fever/chills Eyes: denies: vision changes ENT: denies: nasal congestion, rhinorrhea Respiratory: reports: cough, shortness of breath Cardiovascular: reports: palpitation. denies: chest pain, edema Gastrointestinal: denies: nausea, vomiting, diarrhea, constipation, abdominal pain Genitourinary: denies: dysuria Skin: denies: rashes Musculoskeletal: denies: pain, swelling Neurological: denies: syncope, weakness - Vital signs BP: 175/123, Pulse: 112, Resp: 33, O2 sat: 95 on (2L Oxygen), Wt: 90 kg, temp 97.6 - Physical Exam Constitutional: other (snoring, arousable; oriented to self, not oriented to location ([place]) or time (2018)) HEENT: normocephalic and atraumatic, conjunctiva clear, no scleral icterus, MMM Neck: supple Chest: no-tender to palpation, no lesions Heart: no murmurs/rubs/gallops, pulses present, no edema, other (tachycardia) Lungs: other (diffuse inspiratory and expiratory wheezes bilaterally, 94% on 2LNC) Abdomen: soft, non-tender, bowel sounds present Musculoskeletal: normal structure Neurological: no focal deficit, CN II-XII intact Skin: good turgor, capillary refill <2 seconds, no jaundice Heme/Lymphatic: no unusual bruising or bleeding, no purpura, no petechia Psychiatric: other (poor insight into medical problems, recent memory impaired due to drugs/medications) FMR H&P: Results - Labs Result Diagrams: 06/19/20 08:40 06/20/20 04:17 Lab results: WBC 14.6 thou/uL (4.8-10.8) H 06/19/20 08:40 Hgb 14.7 g/dL (14.0-18.0) 06/19/20 08:40 Hct 45.8 % (42.0-52.0) 06/19/20 08:40 MCV 90.0 fL (78.0-98.0) 06/19/20 08:40 Plt Count 298 thou/uL (130-400) 06/19/20 08:40 Neutrophils % 76.6 % (42.0-75.0) H 06/19/20 08:40 Sodium 140 mmol/L (136-145) 06/19/20 08:40 Potassium 4.6 mmol/L (3.5-5.1) 06/19/20 08:40 Chloride 102 mmol/L (98-107) 06/19/20 08:40 Carbon Dioxide 25 mmol/L (22-29) 06/19/20 08:40 BUN 19 mg/dL (8.9-20.6) 06/19/20 08:40 Creatinine 1.18 mg/dL (0.7-1.3) 06/19/20 08:40 Glucose 101 mg/dL (70-105) 06/19/20 08:40 Lactic Acid 2.1 mmol/L (0.5-2.2) 06/19/20 08:40 Calcium 9.0 mg/dL (7.8-10.44) 06/19/20 08:40 Total Bilirubin 1.2 mg/dL (0.2-1.2) 06/19/20 08:40 AST 28 U/L (5-34) 06/19/20 08:40 ALT 31 U/L (8-55) 06/19/20 08:40 Alkaline Phosphatase 83 U/L (40-110) 06/19/20 08:40 CK-MB (CK-2) 3.4 ng/mL (0-6.6) 06/19/20 08:40 B-Natriuretic Peptide 2324.2 pg/mL (0-100) H 06/19/20 08:40 Serum Total Protein 6.4 g/dL (6.0-8.3) 06/19/20 08:40 Albumin 4.0 g/dL (3.5-5.0) 06/19/20 08:40 Urine Ketones Negative mg/dL (Negative) 06/19/20 10:20 Urine Blood Trace (Negative) A 06/19/20 10:20 Urine Nitrite Negative (Negative) 06/19/20 10:20 Ur Leukocyte Esterase Negative Saundra/uL (Negative) 06/19/20 10:20 Urine RBC 0-3 HPF (0-3) 06/19/20 10:20 Urine WBC None Seen HPF (0-3) 06/19/20 10:20 Ur Squamous Epith Cells None Seen HPF (0-3) 06/19/20 10:20 Urine Bacteria None Seen HPF (None Seen) 06/19/20 10:20 - EKG Interpretation EKG: EKG: tachycardia with T wave inversions in V5, V6 FMR H&P: A/P - Plan Acute hypoxic respiratory failure 2/2 CHF exacerbation HFrEF, EF 15-20% per echo 10/2019. BNP >2300, presented for worsening SOB. s/p IV lasix 40mg x1, solumedrol, albuterol in ER. CXR c/w volume overload. COVID ne gative. - will continue diuresis with 40mg IV BID - strict I/O - daily AM weights - duonebs PRN Ischemic heart disease Indeterminate troponin, no chest pain, EKG with T wave inversions in V5, V6 which are apparently new. ASA, nitro in ED. - trend troponins - stat EKG for chest pain - PRN nitro for chest pain - telemetry monitoring - ASA, statin - cardiology consulted, appreciate recommendations HTN urgency May be 2/2 medication non-compliance vs drug use. - will start metoprolol due to wheezing on exam - start home lisinopril - start hydralazine 50 mg PO TID - consider clonidine PRN for SBP >180 as HTN may in part be due to drug use Meth use Denies use, UDS positive on admission. Altered on admission s/p benzo administration in ED and unclear timeline of recent drug use. Mentation improved on repeat examination. - encourage cessation Hx CVA Aware CODE: FULL IVF: SL Diet: HH DVT ppx: lovenox GI ppx: not indicated Dispo: admit to tele, eLOS > 48 hrs FMR H&P: Upper Level - Plan Date/Time: 06/19/20 1105 IDebbie, have evaluated this patient and agree with findings/plan as outlined by internet marketing director resident. Pertinent changes/additions are listed here. 44 yo M with PMH CAD, HFrEF presents for progressively worsening SOB for the past couple weeks. He also endorses substernal chest pain for the past two days which resolved prior to coming to ED. Denies any known cause. Says chest pain was similar to prior episodes. No known sick contacts. Has shortness of breath and wheezing. Denies hx asthma. When he last saw Dr. Norris last year, he says he was supposed to follow up for stents and a pacemaker, but never did. He has not been on any home medications for some time. Patient denies current illicit drug use. BP: 175/123, Pulse: 112, Resp: 33, Temp: 97.6 (Oral), Pain: 8, O2 sat: 94 on (Room Air) PE: Gen: NAD HEENT: Moist MM Heart: tachycardic, no murmurs. Distal pulses 2+ Lungs: significant inspiratory and expiratory wheeze Abd: soft, nontender, BS+, no masses or hernias Ext: no cyanosis or edema Skin: no rashes Acute hypoxic respiratory failure 2/2 HFrEF exacerbation - EF 15-20% 10/2019, Dr. Norris is manager community relations - BNP 2300, CXR with cardiomegaly and mild pulmonary interstitial edema - s/p lasix in ED, continue IV lasix, monitor strict I/Os - Not on any medications, will need SHERMAN, BB, Statin, ASA prior to dc - Requiring 2L O2 NC HTN urgency - BP 180s/130s in ED - Hydralazine prn and will restart new home regimen Indeterminate troponin - Likely 2/2 demand - Continue to trend trop, initial 0.155 - EKG with possible new t wave inversions, monitor on tele - Consult cardiology considering significant cardiac hx CKD2, at baseline - GFR 60s at baseline Hx polysubstance abuse - UDS pending Diet: HH DVT ppx: lovenox Dispo: admit to telemetry, inpatient, expected LOS >48h Addendum - Attending - Attending Attestation Date/Time: 06/20/20 [id number] I personally evaluated the patient and discussed the management with Dr. [] I agree with the History, Examination, Assessment and Plan documented above with any addition or exceptions noted below. 44 yo male admitted for acute hypoxic respiratory failure 2/2 acute HFrEF exacerbation Now requiring sup O2. Will continue to diuresis. HTN urgency due to malignant HTN and now pos UDS. Restart home meds with ACEI, BB, spironlactone. Will add hydralazine. Cards consulted due to EF. CAD known. CKD2 present. Will diuresis as much as possible. Trend trops. AnthonyMD
[2020-06-19 11:48] LABS: Amphetamine Detected (NotDetected); Barbiturates Screen Not Detected (NotDetected); Benzodiazepine Screen Not Detected (NotDetected); Cocaine Metabolite Screen Not Detected (NotDetected); Medtox Control Line Valid? VALID (VALID); Medtox Reader # READER 1; Methadone Not Detected (NotDetected); Methamphetamine Detected (NotDetected); Opiate Screen Not Detected (NotDetected); Oxycodone Screen Not Detected (NotDetected); Phencyclidine (PCP) Not Detected (NotDetected); THC/Cannabinoid Screen Not Detected (NotDetected); Tricyclic Screen Not Detected (NotDetected)
[2020-06-19] MEDS ORDERED: Acetaminophen 325 MG TAB PO PRN (11:51)
[2020-06-19 12:01] LABS: Lactic Acid 1.8 mmol/L (0.5-2.2)
[2020-06-19] MEDS ORDERED: Nitroglycerin 0.4 MG TAB (25 Tab Bottle) SL PRN (12:21)
[2020-06-19] MEDS ORDERED: hydrALAZINE 20 MG/ML VIAL SLOW IVP PRN ×2 (12:25→12:47)
[2020-06-19 12:40] LABS: Troponin I 0.172 ng/mL (< 0.028)
[2020-06-19] MEDS ORDERED: hydrALAZINE 20 MG/ML VIAL ONE (12:57)
[2020-06-19 13:49] LABS: SARS-CoV-2 NAA Rapid Test Not Detected (NotDetected)
[2020-06-19] MEDS ORDERED: Furosemide 40 MG/4 ML VIAL SLOW IVP SCH (14:30)
--- NOTE | 2020-06-19 15:31 | CON ---
DATE OF CONSULTATION: HISTORY OF PRESENT ILLNESS: The patient is a 44-year-old gentleman with a history of cardiomyopathy and coronary artery disease, who presents with increasing dyspnea. The patient was seen initially in December of 2018, and underwent a cardiac catheterization. He was found to have a severe decrease in left ventricular systolic function. The left anterior descending and left circumflex artery were free of significant disease. The right coronary had a 70% stenosis. The patient was placed on medical therapy. He has been noncompliant with his medications and followup. He was readmitted in October of 2019 with a cerebrovascular accident. The patient states he has not been taking any of his medications except for aspirin.The patient presented with increasing dyspnea and chest discomfort. PAST MEDICAL HISTORY: 1. Coronary artery disease. 2. Cardiomyopathy. 3. Hypertension. 4. CVA. PAST SURGICAL HISTORY: Cholecystectomy and surgery on his forehead. SOCIAL HISTORY: Long history of illicit drug use. Nonsmoker. FAMILY HISTORY: Positive family history of heart disease. ALLERGIES: NONE. MEDICATIONS: Aspirin 81 mg q.o.d. PHYSICAL EXAMINATION: GENERAL: Well-developed gentleman, in no acute distress. VITAL SIGNS: Blood pressure was 178/128, heart rate was 104. NECK: Showed no jugular venous distention. LUNGS: Have few crackles in both bases. HEART: Regular rate and rhythm. Normal S1 and S2. ABDOMEN: Nondistended. EXTREMITIES: Show no edema. VASCULAR: Radial pulses are 2+. LABORATORY DATA: Sodium is 140, potassium 4.6, chloride 102, bicarbonate 25, BUN 19, and creatinine 1.18. Troponin was 0.172. White blood cell count 14.6, hemoglobin 14.7, hematocrit 45.8, and his platelets are 229. Toxicology was positive for illicit drugs. IMAGING DATA: Chest x-ray revealed cardiomegaly with mild interstitial edema. IMPRESSION: 1. Malignant hypertension. 2. Congestive heart failure. 3. History of cardiomyopathy. 4. History of single-vessel coronary artery disease. 5. Cerebrovascular accident. 6. Noncompliance. 7. Illicit drug use. This gentleman presents with malignant hypertension and congestive heart failure.The patient has not been taking any medications. From a cardiac standpoint, he should be on aspirin and lipid-lowering medications. The patient also should be on a beta-maxx and SHERMAN inhibitor therapy. The patient is noncompliant.The life threatening consequences have been explained to the patient. We will follow this patient with you through his hospitalization. Job ID: [id number] MTDD
[2020-06-19 16:00] LABS: Troponin I 0.148 ng/mL (< 0.028)
[2020-06-19] MEDS: Carvedilol 6.25 MG TAB PO SCH (18:03)
[2020-06-19 18:05] VITALS: BMI 27.7
[2020-06-19] MEDS ORDERED: Metoprolol Tartrate 25 MG TAB PO SCH (21:00)
[2020-06-19] MEDS: hydrALAZINE 25 MG TAB PO SCH (21:13)
[2020-06-19] MEDS: Atorvastatin Calcium 40 MG TAB PO SCH (21:17)
[2020-06-19] MEDS: Lisinopril 20 MG TAB PO SCH (21:17)
[2020-06-20 05:09] LABS: Anion Gap 16 mmol/L (10-20); BUN (Urea Nitrogen) 31 mg/dL (8.9-20.6); Calc. Creatinine Clearance 95 mL/min (70-130); Calcium 9.1 mg/dL (7.8-10.44); Carbon Dioxide 27 mmol/L (22-29); Cardiac Risk 2.4 (Less than 4.5); Chloride 101 mmol/L (98-107); Cholesterol 91 mg/dl (< 200 Desired); Glucose 114 mg/dL (70-105); HDL Cholesterol 38 mg/dL (>60 Neg Risk); LDL Cholesterol, Calculated 45 mg/dL; Potassium 3.7 mmol/L (3.5-5.1); Sodium 140 mmol/L (136-145); Triglycerides 39 mg/dL (Less than 150)
--- NOTE | 2020-06-20 06:59 | PDOC.FM ---
- Subjective Subjective: Overnight had 7 beats vtach, and 12s PATs on tele, both asymptomatic. States his breathing is doing better. Denies SOB, chest pain this AM. Frequent coughing when asked to breathe deeply. Urinated frequently overnight after lasix yesterday. - Objective Vital Signs & Weight: Vital Signs (12 hours) Temp Pulse Resp BP BP Pulse Ox 06/20/20 03:31 97.6 F 114 H 20 116/75 97 06/19/20 23:48 162/106 H 97 06/19/20 21:13 107 H 135/104 H 06/19/20 20:00 97.2 F L 107 H 18 135/104 H 97 Weight Weight 90.582 kg I&O: 06/18/20 06/19/20 06/20/20 06:59 06:59 06:59 Intake Total 1100 Output Total 425 Balance 675 Result Diagrams: 06/19/20 08:40 06/20/20 04:17 Phys Exam - Physical Examination Constitutional: NAD HEENT: moist MMs Neck: supple Respiratory: wheezing present diffuse inspiratory and expiratory wheezing Cardiovascular: no significant murmur tachycardia Gastrointestinal: soft, non-tender, no distention Musculoskeletal: no edema, pulses present Neurological: non-focal, moves all 4 limbs Psychiatric: A&O x 3 Skin: normal turgor, cap refill <2 seconds Dx/Plan - Plan Plan: Acute hypoxic respiratory failure 2/2 CHF exacerbation HFrEF, EF 15-20% per echo 10/2019. BNP >2300, presented for worsening SOB. s/p IV lasix 40mg x1, solumedrol, albuterol in ER. CXR c/w volume overload. COVID negative. - will continue diuresis with 40mg IV BID - strict I/O - daily AM weights - duonebs PRN Ischemic heart disease Indeterminate troponin, no chest pain, EKG with T wave inversions in V5, V6 which are apparently new. ASA, nitro in ED. Asymptomatic vtach 7 beats, PATs for 12s on tele overnight. - trend troponins - stat EKG for chest pain - PRN nitro for chest pain - telemetry monitoring - ASA, statin - cardiology consulted, appreciate recommendations HTN urgency May be 2/2 medication non-compliance vs drug use. Improved with current regimen. - carvedilol, lisinopril per cardiology recs - start hydralazine 50 mg PO TID - consider clonidine PRN for SBP >180 as HTN may in part be due to drug use Meth use Denies use, UDS positive on admission. Altered on admission s/p benzo administration in ED and unclear timeline of recent drug use. Mentation improved on repeat examination. - encourage cessation Hx CVA Aware CODE: FULL IVF: SL Diet: HH DVT ppx: lovenox GI ppx: not indicated Dispo: admit to tele, eLOS > 48 hrs Addendum - Attending - Attending Attestation Date/Time: 06/20/20 [id number] I personally evaluated the patient and discussed the management with Dr. [] I agree with the History, Examination, Assessment and Plan documented above with any addition or exceptions noted below. 44 yo male admitted for acute hypoxic respiratory failure 2/2 acute HFrEF exacerbation Improved with diuresis. Output not accurate due to patient not collecting. Now off O2. BP improved. Continue PO meds. Cards following but likely will not perform any interventions due to patient's preference. Last ECHO in October with 15 to 20% LVEF but patient still continues to use drugs. Multiple vascular complications but patient not interested in change in social practises. Possible home tomorrow if remains well. Neftaly
[2020-06-20] MEDS: Aspirin 81 mg Enteric Coated Tablet PO SCH (08:20)
[2020-06-20] MEDS: hydrALAZINE 25 MG TAB PO SCH ×4 (08:20→21:55)
[2020-06-20] MEDS: Enoxaparin Sodium 40 MG/0.4 ML SYRINGE SC SCH (08:21)
[2020-06-20] MEDS: Lisinopril 20 MG TAB PO SCH ×2 (08:21→21:54)
[2020-06-20] MEDS: Carvedilol 6.25 MG TAB PO SCH ×3 (08:21→17:10)
[2020-06-20] MEDS ORDERED: Carvedilol 6.25 MG TAB PO SCH (08:30)
[2020-06-20] MEDS ORDERED: Furosemide 20 MG TAB PO SCH (09:00)
[2020-06-20] MEDS ORDERED: Lisinopril 20 MG TAB PO SCH (09:00)
[2020-06-20] MEDS: Furosemide 80 MG TAB PO SCH ×2 (09:14→14:12)
[2020-06-20] MEDS: Spironolactone 25 MG TAB PO SCH (09:14)
[2020-06-20] MEDS: Atorvastatin Calcium 40 MG TAB PO SCH (21:54)
[2020-06-21] MEDS: Nicotine 14 MG PATCH TD SCH (04:37)
--- NOTE | 2020-06-21 06:53 | PDOC.FM ---
- Subjective Subjective: Overnight 8 beats vtach on tele, asymptomatic. Denies chest pain, SOB, edema. Endorses some palpitations. - Objective Vital Signs & Weight: Vital Signs (12 hours) Temp Pulse Resp BP BP Pulse Ox 06/21/20 04:00 97.5 F L 90 20 119/78 98 06/21/20 00:00 101 H 114/86 98 06/20/20 21:55 96 06/20/20 21:54 118/73 06/20/20 19:25 98.9 F 96 20 118/73 96 Weight Weight 88.677 kg I&O: 06/19/20 06/20/20 06/21/20 06:59 06:59 06:59 Intake Total 1100 1440 Output Total 425 1250 Balance 675 190 Result Diagrams: 06/19/20 08:40 06/21/20 06:29 Phys Exam - Physical Examination Constitutional: NAD HEENT: moist MMs Neck: supple Respiratory: wheezing present (bilateral inspiratory and expiratory wheezes) Cardiovascular: no significant murmur tachycardia 90s Gastrointestinal: soft, non-tender, no distention Musculoskeletal: no edema, pulses present Neurological: non-focal, moves all 4 limbs Psychiatric: normal affect, A&O x 3 Skin: cap refill <2 seconds Dx/Plan - Plan Plan: Acute hypoxic respiratory failure 2/2 CHF exacerbation, improved HFrEF, EF 15-20% per echo 10/2019. BNP >2300, presented for worsening SOB. s/p IV lasix 40mg x1, solumedrol, albuterol in ER. CXR c/w volume overload. COVID negative. 95% on room air this AM, BNP improved to 1400. - increased cr, scheduled lasix discontinued this AM, monitor need for PRN lasix - strict I/O - daily AM weights - duonebs PRN Ischemic heart disease Indeterminate troponin, no chest pain, EKG with T wave inversions in V5, V6 which are apparently new. ASA, nitro in ED. Few beats of vtach on tele overnight, asymptomatic - EP consulted by cardiology: recommend GDMT, no prophylactic ICD at this time - troponins trended and neg - telemetry monitoring - ASA, statin - cardiology consulted, appreciate recommendations HTN urgency May be 2/2 medication non-compliance vs drug use. Improved with current regimen. - carvedilol increased to 25 BID per cardiology recs - hydralazine 25mg TID - lisinopril 20 BID Meth use Denies use, UDS positive on admission. Altered on admission s/p benzo admini stration in ED and unclear timeline of recent drug use. Mentation improved on repeat examination. - encourage cessation Hx CVA Aware CODE: FULL IVF: SL Diet: HH DVT ppx: lovenox GI ppx: not indicated Dispo: admit to tele Addendum - Attending - Attending Attestation Date/Time: 06/21/20 6744 I personally evaluated the patient and discussed the management with Dr. Carrera I agree with the History, Examination, Assessment and Plan documented above with any addition or exceptions noted below. 44 yo male admitted for acute hypoxic respiratory failure 2/2 acute HFrEF exacerbation Remains stable. Titrate up meds as tolerated to therapuetic levels. Stop hydralazine, BP controlled. Vtach overnight x2. Patient remains non-complaint with medication and continued polysubstance abuse. Interventional Cards consulted today. Does not plan on doing anything until patient can prove compliance. Dispo per cards. Neftaly
[2020-06-21 06:58] LABS: Anion Gap 14 mmol/L (10-20); BUN (Urea Nitrogen) 31 mg/dL (8.9-20.6); Calc. Creatinine Clearance 89 mL/min (70-130); Calcium 8.5 mg/dL (7.8-10.44); Carbon Dioxide 26 mmol/L (22-29); Chloride 103 mmol/L (98-107); Glucose 87 mg/dL (70-105); Potassium 3.9 mmol/L (3.5-5.1); Sodium 139 mmol/L (136-145)
[2020-06-21] MEDS ORDERED: Carvedilol 25 MG TAB PO SCH ×2 (08:19→08:45)
[2020-06-21] MEDS: Carvedilol 6.25 MG TAB PO SCH (08:42)
[2020-06-21] MEDS: Enoxaparin Sodium 40 MG/0.4 ML SYRINGE SC SCH (08:43)
[2020-06-21] MEDS: Aspirin 81 mg Enteric Coated Tablet PO SCH (08:43)
[2020-06-21] MEDS: Lisinopril 20 MG TAB PO SCH ×2 (08:43→20:13)
[2020-06-21] MEDS: hydrALAZINE 25 MG TAB PO SCH (08:43)
[2020-06-21] MEDS: Spironolactone 25 MG TAB PO SCH (08:44)
--- NOTE | 2020-06-21 10:40 | CON ---
DATE OF CONSULTATION: 06/21/2020 HISTORY OF PRESENT ILLNESS: I am seeing Mr. Dawkins at our [facility] for an electrophysiology consultation. His problems are: 1. Nonsustained ventricular tachycardia. 2. Acute on chronic CHF with ischemic cardiomyopathy. a. Left heart catheterization in December 2018 shows severely reduced LVEF and 70% mid RCA on medical management. b. 2D echo from October 24, 2019, shows LVEF 15% to 20%, mild biatrial enlargement, moderate LV enlargement, mild to moderate MR similar to prior echo from 08/10/2018 with LVEF 20% to 25%. 3. Polysubstance abuse. a. Chronic amphetamine use with tox screen positive in 06/19/2020 for amphetamines and methamphetamines. 4. History of hypertension. 5. Prior history of CVA. ALLERGIES: NONE NOTED. MEDICATIONS: At home included: 1. Lipitor. 2. Pepcid. 3. NicoDerm CQ. 4. Nitrostat. 5. Coreg 25 mg twice a day. 6. Furosemide 4 mg daily. 7. Lisinopril. 8. Spironolactone. 9. Aspirin. 10. Clopidogrel. On the other hand, the patient has not been compliant with his medication regimen. REVIEW OF SYSTEMS: Mr. Dawkins is complaining of progressive dyspnea, also had some cough. He denies chest pains. Has occasional palpitations. Denies significant dizziness or loss of consciousness. No stroke-like symptoms. No neurological deficits. No fever, chills, or cough. Rest of 12-point review of systems unremarkable. PAST MEDICAL HISTORY: As above. The patient has been admitted with non-ST elevation [place] and CVA like changes in October 2019. He has been noncompliant with his medications since. He denies drug use, but urine tox screen is positive. SOCIAL HISTORY: Prior meth use, which is ongoing based on the positive urine tox screen. Denies EtOH abuse. The patient has history of smoking since age 13. OBJECTIVE DATA: VITAL SIGNS: Blood pressure 135/86, heart rate 88, respiratory rate 16, and temperature 98.1. GENERAL: This is an alert and oriented man, in no apparent distress. NECK: Supple. Jugular veins not distended. CHEST: Coarse without crackles. HEART: Heart sounds are regular to rate and rhythm. No murmur or gallop. ABDOMEN: Benign. Bowel sounds positive. EXTREMITIES: Lower extremities without edema, clubbing or cyanosis. Pulses are adequate. NEUROLOGIC: The patient is nonfocal. MUSCULOSKELETAL: No joint swelling or deformities. SKIN: Without rash. DATABASE: The EKG is reviewed, revealing initially sinus rhythm, rate of 108 beats per minute, narrow QRS at 110 milliseconds, QTc is [address]-T changes are noted. Subsequent EKG shows rate of 129 beats per minute, sinus tachycardia, QTc is 460 milliseconds. Telemetry strips reveal episodic wide-complex rhythm at 8 to 12 beats in duration. They are consistent with ventricular tachycardia. LABORATORY DATA: Urine tox screen positive for urine amphetamines and methamphetamines. White count is 14.6, hemoglobin is 14.7, platelet count is 298. Sodium 139, potassium 3.9, BUN is 31, creatinine 1.3. Troponin I is 0.155, 0.172, 0.148 consecutively. BNP is 2324 on admission. IMAGING: The chest x-ray shows cardiomegaly and possible pulmonary edema. The COVID test is negative. 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 He continues to use methamphetamines and has been noncompliant with his heart failure regimen. He has nonsustained ventricular tachycardia, which is mildly symptomatic. As I discussed with Dr. Norris's at this point, he needs to initiate guideline-directed medical therapy and comply to that. Also needs to quit methamphetamine use. Once he demonstrated sufficient abstinence and adequate therapy for at least 3 months, he may be considered for ICD implantation on a prophylactic basis. Smoking and methamphetamine use cessation is strongly advised. I will see him back after a followup echocardiogram in 3 months in the office. Congestive heart failure, initiating the Coreg, hydralazine, lisinopril, Lasix, spironolactone. We will follow with you in the hospital. Job ID: [id number]
[2020-06-21] MEDS ORDERED: Lactated Ringer's 500 ML IV SCH (12:00)
[2020-06-21] MEDS ORDERED: hydrALAZINE 25 MG TAB PO SCH (15:00)
[2020-06-21 15:06] LABS: Phosphorus 5.2 mg/dL (2.3-4.7)
[2020-06-21] MEDS: Carvedilol 25 MG TAB PO SCH (17:12)
[2020-06-21] MEDS: Atorvastatin Calcium 40 MG TAB PO SCH (20:13)
[2020-06-22] MEDS: Nicotine 14 MG PATCH TD SCH ×2 (00:33→19:32)
--- NOTE | 2020-06-22 07:01 | PDOC.FM ---
- Subjective Subjective: Overnight, 15 beats vtach on tele, asymptomatic. Had episode of hypotension yesterday afternoon, 500 cc LR over 3 hours was given and hydralazine was held. Denies chest pain. Feeling intermittently SOB since late yesterday. - Objective Vital Signs & Weight: Vital Signs (12 hours) Temp Pulse Resp BP Pulse Ox 06/22/20 04:16 98.7 F 94 20 128/82 94 L 06/22/20 01:55 95 06/21/20 23:42 94 124/90 06/21/20 19:35 98.5 F 101 H 20 146/93 H 95 Weight Weight 89.086 kg I&O: 06/21/20 06/22/20 06/23/20 06:59 06:59 06:59 Intake Total 1440 1220 Output Total 1250 Balance 190 1220 Result Diagrams: 06/19/20 08:40 06/21/20 06:29 Phys Exam - Physical Examination Constitutional: NAD HEENT: moist MMs Neck: supple Respiratory: no wheezing few basilar rales Cardiovascular: RRR, no significant murmur Gastrointestinal: soft, non-tender, no distention, positive bowel sounds Musculoskeletal: no edema, pulses present Neurological: non-focal, moves all 4 limbs Psychiatric: A&O x 3 Skin: cap refill <2 seconds Dx/Plan - Plan Plan: Acute hypoxic respiratory failure 2/2 CHF exacerbation, improved HFrEF, EF 15-20% per echo 10/2019. BNP >2300, presented for worsening SOB. s/p IV lasix 40mg x1, solumedrol, albuterol in ER. CXR c/w volume overload. COVID negative. 95% on room air this AM, BNP improved to 1400. - increased cr, scheduled lasix discontinued this AM, monitor need for PRN lasix - strict I/O - daily AM weights - duonebs PRN Ischemic heart disease Ventricular tachycardia Indeterminate troponin, no chest pain, EKG with T wave inversions in V5, V6 which are apparently new. ASA, nitro in ED. Continues to have intermittent vtach on tele, asymptomatic. - EP consulted by cardiology: recommend GDMT, no prophylactic ICD at this time - troponins trended and neg - telemetry monitoring - ASA, statin - cardiology consulted, appreciate recommendations HTN urgency May be 2/2 medication non-compliance vs drug use. Improved with current regimen. - carvedilol increased to 25 BID per cardiology recs - lisinopril 20 BID - discontinued hydralazine yesterday 2/2 hypotension, BP has remained stable overnight Meth use Denies use, UDS positive on admission. Altered on admission s/p benzo administration in ED and unclear timeline of recent drug use. Mentation improved on repeat examination. - encourage cessation Addendum - Attending - Attending Attestation Date/Time: 06/22/20 [id number] I personally evaluated the patient and discussed the management with Dr. Gomes I agree with the History, Examination, Assessment and Plan documented above with any addition or exceptions noted below. 44 yo male admitted for acute hypoxic respiratory failure 2/2 acute HFrEF exacerbation Stable. Denies complaints. BP normotensive to low. Has not had Loop on for 48 hours. Cr increased due to change in perfusion and addition of ACEI. Trend labs in AM. Continues to have runs of Vtach with high risk for legal arrhythmia. Dispo per cards/EP recs ABrayMD
[2020-06-22] MEDS: Enoxaparin Sodium 40 MG/0.4 ML SYRINGE SC SCH (09:10)
[2020-06-22] MEDS: Spironolactone 25 MG TAB PO SCH (09:10)
[2020-06-22] MEDS: Aspirin 81 mg Enteric Coated Tablet PO SCH (09:10)
[2020-06-22] MEDS: Lisinopril 20 MG TAB PO SCH ×2 (09:10→19:32)
[2020-06-22] MEDS: Carvedilol 25 MG TAB PO SCH ×2 (09:10→16:41)
[2020-06-22] MEDS ORDERED: Furosemide 20 MG TAB PO SCH (09:15)
--- NOTE | 2020-06-22 16:08 | PDOC.EP ---
- Subjective Date: 06/22/20 Time: 16:07 Interval History: No new symptoms. - Review of Systems ROS unobtainable: due to endotracheal tube, due to mental status Constitutional: denies: chills, fever, malaise, sweats, weakness, other Cardiology: denies: chest pain, edema, heart racing, light headedness, pa roxysmal noc. dyspnea, orthopnea, palpitations, passing out, pleuritic pain, pressure, swelling, other Gastrointestinal: denies: abdominal pain, constipation, diarrhea, hematochezia, melena, nausea, vomitting, other Musculoskeletal: denies: unstable gait, falls, neck pain, shoulder pain, arm pain, hand pain, leg pain, foot pain, other Neurological: denies: headache, vision changes, other - Objective Allergies/Adverse Reactions: Allergies Allergy/AdvReac Type Severity Reaction Status Date / Time No Known Drug Allergies Allergy Verified 08/09/18 20:13 Current Medications Acetaminophen (Acetaminophen 325 Mg Tab) 650 mg PO Q4H PRN PRN Reason: Headache/Fever/Mild Pain (1-3) Albuterol/Ipratropium (Ipratropium/Albuterol Sulfate 3 Ml Neb) 3 ml NEB [id number] PRN PRN Reason: SOB &/or Wheezing Aspirin (Aspirin 81 Mg Enteric Coated Tablet) 81 mg PO DAILY [facility] Last Admin: 06/22/20 09:10 Dose: 81 mg Documented by: Atorvastatin Calcium (Atorvastatin Calcium 40 Mg Tab) 40 mg PO [facility] Last Admin: 06/21/20 20:13 Dose: 40 mg Documented by: Carvedilol (Carvedilol 25 Mg Tab) 50 mg PO BID-[facility] Enoxaparin Sodium (Enoxaparin Sodium 40 Mg/0.4 Ml Syringe) 40 mg SC 0900 [facility] Last Admin: 06/22/20 09:10 Dose: 40 mg Documented by: Lisinopril (Lisinopril 20 Mg Tab) 20 mg PO BID [facility] Last Admin: 06/22/20 09:10 Dose: 20 mg Documented by: Nicotine (Nicotine 14 Mg Patch) 14 mg TD Q24HR [facility] Last Admin: 06/22/20 00:33 Dose: 14 mg Documented by: Nitroglycerin (Nitroglycerin 0.4 Mg Tab (25 Tab Bottle)) 0.4 mg SL Q5MIN PRN PRN Reason: Chest Pain Sodium Chloride (Flush - Normal Saline 10 Ml Syringe) 10 ml IVF PRN PRN PRN Reason: Saline Flush Spironolactone (Spironolactone 25 Mg Tab) 25 mg PO QAM-[facility] Last Admin: 06/22/20 09:10 Dose: 25 mg Documented by: Vital Signs & Weight: Vital Signs Temp Pulse Resp BP Pulse Ox 06/22/20 12:10 98.1 F 92 16 118/92 H 95 06/22/20 07:40 98.3 F 84 16 123/96 H 95 06/22/20 04:16 98.7 F 94 20 128/82 94 L Weight 196 lb 6.4 oz I/O: I/O 06/21/20 06/22/20 06/23/20 06:59 06:59 06:59 Intake Total 1440 1220 Output Total 1250 Balance 190 1220 - Physical Exam General: alert & oriented x3, appears well, no apparent distress HEENT: normocephaly Neck: no JVD/HJR Cardiology: no murmur, regular rate Lungs: normal breath sounds, scattered rhonchi Neurology: grossly intact Abdomen: unremarkable, soft, non-tender Extremities: warm Musculoskeletal: no pain - Labs Result Diagrams: 06/19/20 08:40 06/21/20 06:29 - EKG Interpretation EKG Method: Telemetry EKG shows: Sinus rhythm, other (13 beat NS-VT) - Assessment/Plan Assessment/Plan: Juancho is a 44-year-old man with history of polysubstance abuse, 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 He continues to use methamphetamines and has been noncompliant with his heart failure regimen. He has nonsustained ventricular tachycardia, which is mildly symptomatic. Problems/History 1. Nonsustained ventricular tachycardia. 2. Acute on chronic CHF with ischemic cardiomyopathy. a. Left heart catheterization in December 2018 shows severely reduced LVEF and 70% mid RCA on medical management. b. 2D echo from October 24, 2019, shows LVEF 15% to 20%, mild biatrial enlargement, moderate LV enlargement, mild to moderate MR similar to prior echo from 08/10/2018 with LVEF 20% to 25%. 3. Polysubstance abuse. a. Chronic amphetamine use with tox screen positive in 06/19/2020 for amphetamines and methamphetamines. 4. History of hypertension. 5. Prior history of CVA. Plan: Hence his poor comliance with follow up supression of his NS-VT with amidarone may pose higher risk than benefit. He needs to initiate ad adhere to a guideline-directed medical therapy for CHF. Also needs to quit methamphetamine use. Once he demonstrated sufficient abstinence and adequate therapy for at least 3 months, he may be considered for ICD implantation on a prophylactic basis. Smoking and methamphetamine use cessation is strongly advised. I will see him back after a followup echocardiogram in 3 months in the office. Congestive heart failure, initiating the Coreg, hydralazine, lisinopril, Lasix, spironolactone. We will happyu to follow with him in the office in 3 months after his ECHO complete. Discussedwith dr Norris. Would sign off. Call if further issues.
[2020-06-22] MEDS: Atorvastatin Calcium 40 MG TAB PO SCH (19:32)
--- NOTE | 2020-06-23 05:49 | PDOC.FM ---
- Subjective Subjective: Patient feels well. Denies headache, vision changes, chest pain, SOB, nausea, abdominal pain and edema. - Objective MAR Reviewed: Yes Vital Signs & Weight: Vital Signs (12 hours) Temp Pulse Resp BP Pulse Ox 06/23/20 03:54 98.3 F 93 18 135/92 H 94 L 06/23/20 00:25 96 06/22/20 20:00 98.6 F 83 16 110/68 96 Weight Weight 87.906 kg I&O: 06/21/20 06/22/20 06/23/20 06:59 06:59 06:59 Intake Total 1440 1220 850 Output Total 1250 1050 Balance 190 1220 -200 Result Diagrams: 06/19/20 08:40 06/21/20 06:29 Phys Exam - Physical Examination Constitutional: NAD HEENT: moist MMs, sclera anicteric Neck: full ROM Respiratory: wheezing present Cardiovascular: RRR, no significant murmur Gastrointestinal: soft, non-tender, positive bowel sounds Musculoskeletal: pulses present Neurological: non-focal Psychiatric: normal affect Skin: no rash Dx/Plan - Plan Plan: Acute hypoxic respiratory failure 2/2 CHF exacerbation, improved HFrEF, EF 15-20% per echo 10/2019. BNP >2300, presented for worsening SOB. s/p IV lasix 40mg x1, solumedrol, albuterol in ER. CXR c/w volume overload. COVID negative. 95% on room air, BNP improved to 1400. - increased cr therefore scheduled lasix discontinued 06/23, monitor need for PRN lasix - strict I/O - daily AM weights - duonebs PRN Ischemic heart disease Ventricular tachycardia Indeterminate troponin, no chest pain, EKG with T wave inversions in V5, V6 which are apparently new. ASA, nitro in ED. Continues to have intermittent vtach on tele, asymptomatic. - EP consulted by cardiology: recommend GDMT, no prophylactic ICD at this time, f/u echo in 3 months - troponins trended and neg - telemetry monitoring. No episodes of v-tach overnight - ASA, statin - Cardiology consulted. Reports patient is stable for discharge pending ability to obtain medications outpatient HTN urgency, resolved 2/2 medication non-compliance vs drug use. Improved with current regimen. - Discontinued hydralazine on 06/22 due to hypotension - Carvedilol increased to 50 BID pm 06/22 per cardiology recs - Continue Lisinopril 20 BID Meth use Denies use, UDS positive on admission. Altered on admission s/p benzo administration in ED and unclear timeline of recent drug use. Mentation improved on repeat examination. - encourage cessation PCP: CC Code: FULL Dispo: Stable for discharge home pending CM evaluation for possible medication payment assistance Addendum - Attending - Attending Attestation Date/Time: 06/23/20 0106 I personally evaluated the patient and discussed the management with I agree with the History, Examination, Assessment and Plan documented above with any addition or exceptions noted below. Candid conversation regard futility of continued substance abuse and impact on overall health and life expectancy. Patient declines formal counseling . Patient endorse commitment to cesssation substance abuse. RX found through [facility] per nursing staff stable to d/c home with guarded halfway prognosis if continues methamphetamine use.
[2020-06-23] MEDS: Aspirin 81 mg Enteric Coated Tablet PO SCH (08:20)
[2020-06-23] MEDS: Lisinopril 20 MG TAB PO SCH (08:20)
[2020-06-23] MEDS: Carvedilol 25 MG TAB PO SCH (08:20)
[2020-06-23] MEDS: Enoxaparin Sodium 40 MG/0.4 ML SYRINGE SC SCH (08:20)
[2020-06-23] MEDS: Spironolactone 25 MG TAB PO SCH (08:20)
[2020-06-23 11:28] VITALS: BP 95/61; TEMP 98.5
--- NOTE | 2020-06-24 11:00 | DIS ---
DATE OF ADMISSION: 06/19/2020 DATE OF DISCHARGE: 06/23/2020 ADMITTING ATTENDING: Ninoska Zhang MD DISCHARGE ATTENDING: Brian Santos MD RESIDENT: Nitza Gomes DO CONSULTS: 1. Cardiology, Dr. Norris. 2. Electrophysiology, Dr. Ames. PROCEDURES: Chest x-ray, 06/19/2020, cardiomegaly and possible mild pulmonary interstitial edema. PRIMARY DIAGNOSIS: Acute congestive heart failure exacerbation. SECONDARY DIAGNOSES: 1. Ventricular tachycardia, not sustained. 2. Ischemic heart disease. 3. Hypertensive urgency. 4. Methamphetamine use. DISCHARGE MEDICATIONS: 1. Spironolactone 25 mg p.o. q.a.m. with meals. 2. Aspirin 81 mg daily. 3. Atorvastatin 40 mg p.o. at bedtime. 4. Lisinopril 20 mg b.i.d. 5. Carvedilol 50 mg p.o. b.i.d. DISCONTINUED MEDICATIONS: None. The patient was not compliant and not taking any medications prior to admission. HISTORY OF PRESENT ILLNESS/HOSPITAL COURSE: Mr. Dawkins is a 44-year-old male with a past medical history of heart failure, reduced ejection fraction 15% to 20% in October 2019 as well as hypertension, history of polysubstance abuse including methamphetamine, and ischemic heart disease, who presented for shortness of breath. Upon arrival to the ER, he was found to be tachycardic with T-wave inversion in leads V5 and V6 on his EKG, as well as hypertensive with initial blood pressure of 175/123. Initial labs were significant for a BNP of 2300, which is higher than his BNP has ever been. He denied any drug use prior to coming to the hospital and reporting that last drug use was at least 6 months ago. However, his urine drug screen was positive for methamphetamine. He was then placed on 2 L nasal cannula in the ER, which helped him to maintain an O2 saturation of 94%. He was admitted to telemetry for an acute CHF exacerbation with new oxygen requirement. He is not having any edema or rales on his exam, although he did have diffuse wheezing everywhere and inspiratory and expiratory. He has diuresed adequately and no longer needed nasal cannula. However, on telemetry, he was noted to have a few episodes of asymptomatic ventricular tachycardia. Given his complicated history, Cardiology was consulted on admission to assist with management of his cardiac diseases. His blood pressure medications were titrated to help with both his blood pressure and his ventricular tachycardia. Electrophysiology was consulted by the job estimator. Per Electrophysiology, due to his current drug use, the patient is not a candidate for prophylactic ICD at this time. They would like to see him to comply with 3 months of guideline-directed medical therapy. If he is compliant with 3 months of guideline-directed therapy and abstinent from drug use during that time, he would possibly be a candidate for prophylactic ICD. They would like to have him get an echo in 3 months and follow up with them outpatient. The patient remained in the hospital for multiple days due to these episodes of ventricular tachycardia. Ultimately, he was discharged on 06/23/2020 after his medications had been increased to the dosages listed above and he did not have any episodes of ventricular tachycardia on this regimen on telemetry monitoring overnight. Prior to discharge, the patient was given resources including [facility] for his medication and also had an appointment scheduled for him at [facility] on June 28. DISPOSITION: Stable, although prognosis is guarded if the patient continues to use drugs. DISCHARGE INSTRUCTIONS: 1. Location: Home. 2. Diet: Heart healthy. 3. Activity as tolerated. 4. Followup appointment with PCP at [facility] on June 28 as scheduled. He will also need followup with Dr. Norris and Dr. Ames, Electrophysiology would like to see him in 3 months. Job ID: [id number]
== END 2020-06-23 15:30 | disposition home or self-care (01) | DRG 291 ==
LOC: ERS 08:14 → ERHOLD 11:16 → OBSVTOIN 11:59 → 2NO 15:44
PROVIDERS: ADMIT Student in an Organized Health Care Education/Training Program; ATTEND Student in an Organized Health Care Education/Training Program
DX: I13.0 Hypertensive heart and chronic kidney disease with heart failure and stage 1 through stage 4 chronic kidney disease, or unspecified chronic kidney disease (principal); J96.01 Acute respiratory failure with hypoxia; I50.23 Acute on chronic systolic (congestive) heart failure; I47.2 Ventricular tachycardia; I47.1 Supraventricular tachycardia; Z20.822 Contact with and (suspected) exposure to COVID-19; I16.0 Hypertensive urgency; F15.10 Other stimulant abuse, uncomplicated; I25.10 Atherosclerotic heart disease of native coronary artery without angina pectoris; N18.2 Chronic kidney disease, stage 2 (mild); I25.5 Ischemic cardiomyopathy; I34.0 Nonrheumatic mitral (valve) insufficiency; Z79.899 Other long term (current) drug therapy; Z79.02 Long term (current) use of antithrombotics/antiplatelets; Z79.82 Long term (current) use of aspirin; I25.2 Old myocardial infarction; Z90.49 Acquired absence of other specified parts of digestive tract; Z86.73 Personal history of transient ischemic attack (TIA), and cerebral infarction without residual deficits; Z87.891 Personal history of nicotine dependence; Z91.14 Patient's other noncompliance with medication regimen; Z82.49 Family history of ischemic heart disease and other diseases of the circulatory system
CPT/HCPCS: 0240U; 36415; 71045; 80048; 80053; 80061; 80306; 81003; 81015; 82553; 83605; 83735; 83880; 84100; 84443; 84484; 85025; 87040; 87149; 93005; 93010; G0378; J0360; J1650; J1940; J2060; J2930

== ENCOUNTER 2021-07-07 17:39 | Emergency (ER) | payer SELFPAY ==
[~2021-07-07 17:39] MED LIST: Iopamidol 370 76% 50 ML VIAL FS ONE
[2021-07-07 18:12] LABS: #Basophils 0.1 thou/uL (0.0-0.2); #Eosinphils 0.3 thou/uL (0.0-0.7); #Lymphocytes 1.6 thou/uL (1.20-3.40); #Monocytes 1.3 thou/uL (0.11-0.59); #Neutrophils 10.1 thou/uL (1.40-6.50); %Basophils 0.5 % (0.0-1.0); %Lymphocytes 11.6 % (21.0-51.0); %Monocytes 9.6 % (0.0-10.0); %Neutrophils 76.3 % (42.0-75.0); Hemoglobin 17.3 g/dL (14.0-18.0); Mean Corpuscular HGB CONC 30.9 g/dL (32.0-36.0); Mean Corpuscular Hemoglobin 28.5 pg (27.0-31.0); Mean Corpuscular Volume 92.3 fL (78.0-98.0); Mean Platelet Volume 7.4 fL (7.4-10.4); Platelet Count 263 thou/uL (130-400); RBC Distribution Width 13.3 % (11.5-14.5); Red Blood Cell (RBC) Count 6.06 mill/uL (4.70-6.10); White Blood Cell (WBC) Count 13.3 thou/uL (4.8-10.8)
[2021-07-07 18:24] LABS: INR-International Normal Ratio 1.2; Prothrombin Time 14.8 sec (12.0-14.7)
[2021-07-07 18:25] LABS: PTT 58.8 sec (22.9-36.1)
[2021-07-07 18:36] LABS: ALT (SGPT) 57 U/L (8-55); AST (SGOT) 35 U/L (5-34); Albumin 3.5 g/dL (3.5-5.0); Alkaline Phosphatase 68 U/L (40-110); Anion Gap 13 mmol/L (10-20); BUN (Urea Nitrogen) 19 mg/dL (8.9-20.6); Bilirubin, Total 1.3 mg/dL (0.2-1.2); Calc. Creatinine Clearance 0 mL/min (70-130); Calcium 9.1 mg/dL (7.8-10.44); Carbon Dioxide 27 mmol/L (22-29); Chloride 102 mmol/L (98-107); Globulin 2.9 g/dL (2.4-3.5); Glucose 75 mg/dL (70-105); Potassium 4.3 mmol/L (3.5-5.1); Protein, Total 6.4 g/dL (6.0-8.3); Sodium 138 mmol/L (136-145)
[2021-07-07] MEDS ORDERED: Carvedilol 25 MG TAB PO SCH (19:45)
== END 2021-07-07 21:38 | disposition home or self-care (01) ==
LOC: ERS 17:39
DX: J18.9 Pneumonia, unspecified organism (principal); R00.0 Tachycardia, unspecified; R04.2 Hemoptysis; I11.0 Hypertensive heart disease with heart failure; I50.9 Heart failure, unspecified; Z87.891 Personal history of nicotine dependence
CPT/HCPCS: 36415; 71045; 71275; 80053; 85025; 85379; 85610; 85730; 86850; 86900; 86901; 93005; Q9967

== ENCOUNTER 2022-08-21 20:26 | Inpatient (IN) | payer OTHER, SELFPAY ==
[2022-08-22] MEDS ORDERED: Heparin 25,000 units/D5W 500 ML IVPB SCH (01:45)
[2022-08-22] MEDS ORDERED: Heparin 10,000 UNITS/ 10 ML VIAL SLOW IVP SCH (01:45)
[2022-08-22 02:13] VITALS: BMI 32.5
[2022-08-22 02:50] LABS: #Basophils 0.1 thou/uL (0.0-0.2); #Eosinphils 2.2 thou/uL (0.0-0.7); #Lymphocytes 2.2 thou/uL (1.20-3.40); #Neutrophils 7.7 thou/uL (1.40-6.50); %Basophils 0.4 % (0.0-1.0); %Eosinophils 16.6 % (0.0-10.0); %Lymphocytes 17.1 % (21.0-51.0); %Monocytes 7.4 % (0.0-10.0); %Neutrophils 58.4 % (42.0-75.0); Hemoglobin 17.1 g/dL (14.0-18.0); Mean Corpuscular HGB CONC 30.8 g/dL (32.0-36.0); Mean Corpuscular Hemoglobin 28.8 pg (27.0-31.0); Mean Corpuscular Volume 93.4 fl (78.0-98.0); Mean Platelet Volume 8.7 fL (7.4-10.4); Platelet Count 182 10x3/uL (130-400); RBC Distribution Width 13.6 % (11.5-14.5); Red Blood Cell (RBC) Count 5.95 mill/uL (4.70-6.10); White Blood Cell (WBC) Count 13.1 10x3/uL (4.8-10.8)
[2022-08-22 03:21] LABS: ALT (SGPT) 34 U/L (8-55); AST (SGOT) 36 U/L (5-34); Albumin 3.7 g/dL (3.5-5.0); Alkaline Phosphatase 87 U/L (40-110); Anion Gap 17 mmol/L (10-20); BUN (Urea Nitrogen) 21 mg/dL (8.9-20.6); Bilirubin, Total 1.1 mg/dL (0.2-1.2); Calc. Creatinine Clearance 89 mL/min (70-130); Calcium 9.4 mg/dL (7.8-10.44); Carbon Dioxide 20 mmol/L (22-29); Chloride 106 mmol/L (98-107); Estimated GFR 58; Globulin 2.4 g/dL (2.4-3.5); Glucose 140 mg/dL (70-105); Magnesium 1.8 mg/dL (1.6-2.6); Potassium 4.1 mmol/L (3.5-5.1); Protein, Total 6.1 g/dL (6.0-8.3); Sodium 139 mmol/L (136-145)
[2022-08-22 03:31] LABS: Troponin I 0.279 ng/mL (< 0.028)
[2022-08-22] MEDS: Furosemide 40 MG/4 ML VIAL SLOW IVP SCH ×2 (06:22→15:20)
[2022-08-22 07:59] LABS: Troponin I 0.343 ng/mL (< 0.028)
[2022-08-22] MEDS: Aspirin Chewable 81 MG TAB PO SCH (09:33)
[2022-08-22] MEDS: Carvedilol 6.25 MG TAB PO SCH ×2 (09:33→17:09)
[2022-08-22] MEDS: Lisinopril 20 MG TAB PO SCH ×2 (09:33→20:52)
[2022-08-22] MEDS: Spironolactone 25 MG TAB PO SCH (09:33)
[2022-08-22] MEDS ORDERED: Apixaban 5 MG TAB PO SCH (11:45)
[2022-08-22] MEDS: Lorazepam 2 MG/ML VIAL SLOW IVP PRN (11:54)
[2022-08-22] MEDS ORDERED: FLU VACC QS2022-23(6MOS UP)/PF 60 MCG/0.5 ML SYRINGE IM ONE (18:00)
[2022-08-22] MEDS: Apixaban 5 MG TAB PO SCH (20:52)
[2022-08-22] MEDS: Atorvastatin Calcium 40 MG TAB PO SCH (20:52)
[2022-08-23] MEDS: HYDROcodone/Acetaminophen 5/325 mg Tablet PO PRN (00:01)
[2022-08-23 05:11] LABS: #Eosinphils 1.6 thou/uL (0.0-0.7); #Lymphocytes 1.8 thou/uL (1.20-3.40); #Monocytes 1.6 thou/uL (0.11-0.59); %Basophils 0.2 % (0.0-1.0); %Eosinophils 10.3 % (0.0-10.0); %Lymphocytes 12.1 % (21.0-51.0); %Monocytes 10.7 % (0.0-10.0); %Neutrophils 66.6 % (42.0-75.0); Hemoglobin 17.4 g/dL (14.0-18.0); Mean Corpuscular HGB CONC 32.3 g/dL (32.0-36.0); Mean Corpuscular Hemoglobin 29.8 pg (27.0-31.0); Mean Corpuscular Volume 92.3 fl (78.0-98.0); Mean Platelet Volume 8.3 fL (7.4-10.4); Platelet Count 187 10x3/uL (130-400); RBC Distribution Width 13.2 % (11.5-14.5); Red Blood Cell (RBC) Count 5.82 mill/uL (4.70-6.10)
[2022-08-23 05:19] LABS: Anion Gap 14 mmol/L (10-20); BUN (Urea Nitrogen) 26 mg/dL (8.9-20.6); Calc. Creatinine Clearance 124 mL/min (70-130); Calcium 9.1 mg/dL (7.8-10.44); Carbon Dioxide 22 mmol/L (22-29); Chloride 102 mmol/L (98-107); Estimated GFR 82; Glucose 117 mg/dL (70-105); Potassium 3.7 mmol/L (3.5-5.1); Sodium 134 mmol/L (136-145)
[2022-08-23] MEDS: Furosemide 40 MG/4 ML VIAL SLOW IVP SCH ×2 (06:41→14:53)
[2022-08-23] MEDS: Spironolactone 25 MG TAB PO SCH (09:41)
[2022-08-23] MEDS: Lisinopril 20 MG TAB PO SCH ×2 (09:41→21:25)
[2022-08-23] MEDS: Carvedilol 6.25 MG TAB PO SCH ×2 (09:42→18:34)
[2022-08-23] MEDS: Apixaban 5 MG TAB PO SCH (09:42)
[2022-08-23] MEDS: Aspirin Chewable 81 MG TAB PO SCH (09:43)
[2022-08-23] MEDS ORDERED: Ipratropium/Albuterol 3 ML NEB NEB PRN (10:57)
[2022-08-23] MEDS ORDERED: Magnesium 2 GM/50 ML(in water) 2 GM in Premix Bag 1 BAG IVPB SCH (13:30)
[2022-08-23] MEDS ORDERED: Morphine 2 MG/ML VIAL SLOW IVP PRN (13:51)
[2022-08-23] MEDS: Atorvastatin Calcium 40 MG TAB PO SCH (21:25)
[2022-08-24] MEDS: HYDROcodone/Acetaminophen 5/325 mg Tablet PO PRN ×2 (00:03→20:54)
[2022-08-24 05:30] LABS: #Basophils 0.1 thou/uL (0.0-0.2); #Eosinphils 1.1 thou/uL (0.0-0.7); #Lymphocytes 2.3 thou/uL (1.20-3.40); #Monocytes 2.2 thou/uL (0.11-0.59); #Neutrophils 11.8 thou/uL (1.40-6.50); %Basophils 0.4 % (0.0-1.0); %Eosinophils 6.3 % (0.0-10.0); %Lymphocytes 13.2 % (21.0-51.0); %Monocytes 12.5 % (0.0-10.0); %Neutrophils 67.5 % (42.0-75.0); Hemoglobin 16.9 g/dL (14.0-18.0); Mean Corpuscular HGB CONC 32.6 g/dL (32.0-36.0); Mean Corpuscular Hemoglobin 30.2 pg (27.0-31.0); Mean Corpuscular Volume 92.5 fl (78.0-98.0); Mean Platelet Volume 8.5 fL (7.4-10.4); Platelet Count 203 10x3/uL (130-400); RBC Distribution Width 13.2 % (11.5-14.5); Red Blood Cell (RBC) Count 5.61 mill/uL (4.70-6.10); White Blood Cell (WBC) Count 17.4 10x3/uL (4.8-10.8)
[2022-08-24 05:51] LABS: Anion Gap 16 mmol/L (10-20); BUN (Urea Nitrogen) 32 mg/dL (8.9-20.6); Calc. Creatinine Clearance 96 mL/min (70-130); Calcium 9.1 mg/dL (7.8-10.44); Carbon Dioxide 22 mmol/L (22-29); Chloride 99 mmol/L (98-107); Estimated GFR 61; Glucose 102 mg/dL (70-105); Magnesium 2.2 mg/dL (1.6-2.6); Potassium 4.3 mmol/L (3.5-5.1); Sodium 133 mmol/L (136-145)
[2022-08-24] MEDS: Furosemide 40 MG/4 ML VIAL SLOW IVP SCH (06:19)
[2022-08-24] MEDS: Acetaminophen 325 MG TAB PO PRN ×2 (06:49→21:56)
[2022-08-24] MEDS: Apixaban 5 MG TAB PO SCH ×4 (08:13→20:54)
[2022-08-24] MEDS: Carvedilol 6.25 MG TAB PO SCH ×2 (08:36→17:51)
[2022-08-24] MEDS: Lisinopril 20 MG TAB PO SCH (08:36)
[2022-08-24] MEDS: Aspirin Chewable 81 MG TAB PO SCH (08:36)
[2022-08-24] MEDS: Spironolactone 25 MG TAB PO SCH (08:36)
[2022-08-24] MEDS: cefTRIAXone\\ROCEPHIN 2 GM in Sodium Chloride 0.9% 100 ML IVPB SCH (11:45)
[2022-08-24] MEDS: Ipratropium/Albuterol 3 ML NEB NEB SCH ×3 (13:55→22:43)
[2022-08-24] MEDS ORDERED: Sodium Chloride 0.9% 250 ML IV SCH (14:00)
[2022-08-24] MEDS: Atorvastatin Calcium 40 MG TAB PO SCH (20:54)
[2022-08-24] MEDS: Lisinopril 5 MG TAB PO SCH (21:04)
[2022-08-25 05:31] LABS: #Basophils 0.1 thou/uL (0.0-0.2); #Eosinphils 0.9 thou/uL (0.0-0.7); #Lymphocytes 2.3 thou/uL (1.20-3.40); #Monocytes 1.7 thou/uL (0.11-0.59); #Neutrophils 9.1 thou/uL (1.40-6.50); %Basophils 0.7 % (0.0-1.0); %Eosinophils 6.2 % (0.0-10.0); %Lymphocytes 16.5 % (21.0-51.0); %Monocytes 11.8 % (0.0-10.0); %Neutrophils 64.8 % (42.0-75.0); Hemoglobin 16.8 g/dL (14.0-18.0); Mean Corpuscular HGB CONC 31.3 g/dL (32.0-36.0); Mean Corpuscular Hemoglobin 29.2 pg (27.0-31.0); Mean Corpuscular Volume 93.2 fl (78.0-98.0); Mean Platelet Volume 8.7 fL (7.4-10.4); Platelet Count 205 10x3/uL (130-400); RBC Distribution Width 13.2 % (11.5-14.5); Red Blood Cell (RBC) Count 5.76 mill/uL (4.70-6.10)
[2022-08-25 05:57] LABS: Anion Gap 15 mmol/L (10-20); BUN (Urea Nitrogen) 34 mg/dL (8.9-20.6); Calc. Creatinine Clearance 108 mL/min (70-130); Calcium 9.1 mg/dL (7.8-10.44); Carbon Dioxide 22 mmol/L (22-29); Chloride 102 mmol/L (98-107); Estimated GFR 72; Glucose 93 mg/dL (70-105); Potassium 4.4 mmol/L (3.5-5.1); Sodium 135 mmol/L (136-145)
[2022-08-25] MEDS: Ipratropium/Albuterol 3 ML NEB NEB SCH ×3 (08:25→18:54)
[2022-08-25] MEDS: Carvedilol 6.25 MG TAB PO SCH ×2 (08:26→17:54)
[2022-08-25] MEDS: Amiodarone 200 MG TAB PO SCH ×3 (08:26→20:29)
[2022-08-25] MEDS: Lisinopril 5 MG TAB PO SCH ×2 (08:26→20:29)
[2022-08-25] MEDS: Aspirin Chewable 81 MG TAB PO SCH (08:26)
[2022-08-25] MEDS: Apixaban 5 MG TAB PO SCH ×2 (08:26→20:29)
[2022-08-25] MEDS: cefTRIAXone\\ROCEPHIN 2 GM in Sodium Chloride 0.9% 100 ML IVPB SCH (11:52)
[2022-08-25] MEDS: Lorazepam 2 MG/ML VIAL SLOW IVP PRN ×2 (15:32→22:55)
[2022-08-25] MEDS: Atorvastatin Calcium 40 MG TAB PO SCH (20:29)
[2022-08-26] MEDS: Ipratropium/Albuterol 3 ML NEB NEB SCH ×5 (00:04→23:50)
[2022-08-26] MEDS: Lisinopril 5 MG TAB PO SCH ×2 (09:33→20:53)
[2022-08-26] MEDS: Aspirin Chewable 81 MG TAB PO SCH (09:33)
[2022-08-26] MEDS: Carvedilol 6.25 MG TAB PO SCH ×2 (09:33→17:28)
[2022-08-26] MEDS: Amiodarone 200 MG TAB PO SCH ×3 (09:33→20:52)
[2022-08-26] MEDS: Apixaban 5 MG TAB PO SCH ×2 (09:33→20:53)
[2022-08-26 11:19] LABS: #Basophils 0.1 thou/uL (0.0-0.2); #Eosinphils 0.4 thou/uL (0.0-0.7); #Lymphocytes 1.7 thou/uL (1.20-3.40); #Monocytes 1.4 thou/uL (0.11-0.59); #Neutrophils 8.3 thou/uL (1.40-6.50); %Basophils 0.5 % (0.0-1.0); %Eosinophils 3.7 % (0.0-10.0); %Lymphocytes 13.9 % (21.0-51.0); %Monocytes 12.1 % (0.0-10.0); %Neutrophils 69.9 % (42.0-75.0); Hemoglobin 16.1 g/dL (14.0-18.0); Mean Corpuscular HGB CONC 31.7 g/dL (32.0-36.0); Mean Corpuscular Hemoglobin 29.5 pg (27.0-31.0); Mean Corpuscular Volume 93.1 fl (78.0-98.0); Mean Platelet Volume 8.4 fL (7.4-10.4); Platelet Count 230 10x3/uL (130-400); Red Blood Cell (RBC) Count 5.46 mill/uL (4.70-6.10); White Blood Cell (WBC) Count 11.8 10x3/uL (4.8-10.8)
[2022-08-26 11:39] LABS: Anion Gap 15 mmol/L (10-20); BUN (Urea Nitrogen) 24 mg/dL (8.9-20.6); Calc. Creatinine Clearance 126 mL/min (70-130); Calcium 8.6 mg/dL (7.8-10.44); Carbon Dioxide 20 mmol/L (22-29); Chloride 104 mmol/L (98-107); Estimated GFR 88; Glucose 126 mg/dL (70-105); Potassium 3.8 mmol/L (3.5-5.1); Sodium 135 mmol/L (136-145)
[2022-08-26] MEDS: cefTRIAXone\\ROCEPHIN 2 GM in Sodium Chloride 0.9% 100 ML IVPB SCH (13:04)
[2022-08-26] MEDS: Lorazepam 2 MG/ML VIAL SLOW IVP PRN ×2 (16:12→20:51)
[2022-08-26] MEDS: Atorvastatin Calcium 40 MG TAB PO SCH (20:53)
[2022-08-27 05:33] LABS: #Basophils 0.1 thou/uL (0.0-0.2); #Eosinphils 0.5 thou/uL (0.0-0.7); #Monocytes 1.6 thou/uL (0.11-0.59); #Neutrophils 7.5 thou/uL (1.40-6.50); %Basophils 0.4 % (0.0-1.0); %Eosinophils 4.6 % (0.0-10.0); %Lymphocytes 17.3 % (21.0-51.0); %Monocytes 13.6 % (0.0-10.0); %Neutrophils 64.1 % (42.0-75.0); Hemoglobin 15.2 g/dL (14.0-18.0); Mean Corpuscular HGB CONC 31.6 g/dL (32.0-36.0); Mean Corpuscular Hemoglobin 29.4 pg (27.0-31.0); Mean Corpuscular Volume 92.8 fl (78.0-98.0); Mean Platelet Volume 8.6 fL (7.4-10.4); Platelet Count 233 10x3/uL (130-400); RBC Distribution Width 12.9 % (11.5-14.5); Red Blood Cell (RBC) Count 5.18 mill/uL (4.70-6.10); White Blood Cell (WBC) Count 11.7 10x3/uL (4.8-10.8)
[2022-08-27 05:41] LABS: Anion Gap 12 mmol/L (10-20); BUN (Urea Nitrogen) 22 mg/dL (8.9-20.6); Calc. Creatinine Clearance 124 mL/min (70-130); Calcium 8.9 mg/dL (7.8-10.44); Carbon Dioxide 22 mmol/L (22-29); Chloride 105 mmol/L (98-107); Estimated GFR 87; Glucose 116 mg/dL (70-105); Sodium 135 mmol/L (136-145)
[2022-08-27] MEDS: Ipratropium/Albuterol 3 ML NEB NEB SCH ×2 (06:42→12:12)
[2022-08-27] MEDS ORDERED: Lisinopril 10 MG TAB PO SCH (09:00)
[2022-08-27] MEDS ORDERED: Amiodarone 200 MG TAB PO SCH (09:00)
[2022-08-27] MEDS: Carvedilol 6.25 MG TAB PO SCH (09:35)
[2022-08-27] MEDS: Apixaban 5 MG TAB PO SCH (09:35)
[2022-08-27] MEDS: Aspirin Chewable 81 MG TAB PO SCH (09:35)
[2022-08-27 12:40] VITALS: BP 92/65; TEMP 97
[2022-08-27] MEDS: cefTRIAXone\\ROCEPHIN 2 GM in Sodium Chloride 0.9% 100 ML IVPB SCH (13:29)
[2022-08-29] MEDS ORDERED: Apixaban 5 MG TAB PO SCH (09:00)
[2022-08-30] MEDS ORDERED: Apixaban 5 MG TAB PO SCH (09:00)
== END 2022-08-27 15:30 | disposition home or self-care (01) | DRG 291 ==
LOC: 2NO 20:26
PROVIDERS: ADMIT Student in an Organized Health Care Education/Training Program; ATTEND Internal Medicine
DX: I11.0 Hypertensive heart disease with heart failure (principal); I26.99 Other pulmonary embolism without acute cor pulmonale; I50.23 Acute on chronic systolic (congestive) heart failure; I47.20 Ventricular tachycardia, unspecified; Z51.5 Encounter for palliative care; F17.210 Nicotine dependence, cigarettes, uncomplicated; D72.829 Elevated white blood cell count, unspecified; F15.10 Other stimulant abuse, uncomplicated; E78.5 Hyperlipidemia, unspecified; I25.10 Atherosclerotic heart disease of native coronary artery without angina pectoris; I42.8 Other cardiomyopathies; J44.9 Chronic obstructive pulmonary disease, unspecified; Z79.82 Long term (current) use of aspirin; Z79.899 Other long term (current) drug therapy; Z86.73 Personal history of transient ischemic attack (TIA), and cerebral infarction without residual deficits; Z90.49 Acquired absence of other specified parts of digestive tract; Z71.51 Drug abuse counseling and surveillance of drug abuser; Z82.49 Family history of ischemic heart disease and other diseases of the circulatory system; Z91.14 Patient's other noncompliance with medication regimen
CPT/HCPCS: 36415; 71045; 80048; 80053; 83735; 84484; 85025; 85730; 87040; 93306; 93798; 93970; 94640; J0696; J1644; J1940; J2060; J2272; J3475; J3490; J7030; J7620

== ENCOUNTER 2023-01-02 20:27 | Inpatient (IN) | payer OTHER ==
[2023-01-02 21:59] LABS: #Basophils 0.1 thou/uL (0.0-0.2); #Eosinphils 1.1 thou/uL (0.0-0.7); #Monocytes 0.9 thou/uL (0.11-0.59); #Neutrophils 7.4 thou/uL (1.40-6.50); %Basophils 0.5 % (0.0-1.0); %Eosinophils 10.1 % (0.0-10.0); %Lymphocytes 10.2 % (21.0-51.0); %Monocytes 8.3 % (0.0-10.0); %Neutrophils 70.5 % (42.0-75.0); Hemoglobin 14.9 g/dL (14.0-18.0); Mean Corpuscular HGB CONC 31.4 g/dL (32.0-36.0); Mean Corpuscular Hemoglobin 26.2 pg (27.0-31.0); Mean Corpuscular Volume 83.5 fl (78.0-98.0); Mean Platelet Volume 10.5 fL (7.4-10.4); Platelet Count 281 10x3/uL (130-400); RBC Distribution Width 19.6 % (11.5-14.5); Red Blood Cell (RBC) Count 5.68 mill/uL (4.70-6.10); White Blood Cell (WBC) Count 10.5 10x3/uL (4.8-10.8)
[2023-01-02 22:28] LABS: ALT (SGPT) 60 U/L (8-55); AST (SGOT) 41 U/L (5-34); Albumin 3.4 g/dL (3.5-5.0); Alkaline Phosphatase 106 U/L (40-110); Anion Gap 16 mmol/L (10-20); BUN (Urea Nitrogen) 15 mg/dL (8.9-20.6); Bilirubin, Total 1.7 mg/dL (0.2-1.2); Calc. Creatinine Clearance 0 mL/min (70-130); Calcium 8.9 mg/dL (7.8-10.44); Carbon Dioxide 26 mmol/L (22-29); Chloride 102 mmol/L (98-107); Estimated GFR 74; Globulin 2.9 g/dL (2.4-3.5); Glucose 117 mg/dL (70-105); Potassium 2.9 mmol/L (3.5-5.1); Protein, Total 6.3 g/dL (6.0-8.3); Sodium 141 mmol/L (136-145)
[2023-01-02 22:50] LABS: CKMB 4.3 ng/mL (0-6.6)
[2023-01-02] MEDS ORDERED: Furosemide 40 MG/4 ML VIAL ONE (23:24)
[2023-01-02] MEDS ORDERED: Aspirin Chewable 81 MG TAB ONE (23:25)
[2023-01-02] MEDS ORDERED: Electrolyte Replacement Protocol 1 EACH FS SCH (23:45)
[2023-01-03] MEDS ORDERED: Acetaminophen 650 MG Suppository PR PRN (00:05)
[2023-01-03] MEDS ORDERED: Ipratropium/Albuterol 3 ML NEB NEB PRN (00:13)
[2023-01-03] MEDS ORDERED: hydrALAZINE 20 MG/ML VIAL SLOW IVP PRN (00:37)
[2023-01-03 01:02] LABS: Magnesium 1.5 mg/dL (1.6-2.6)
[2023-01-03 01:03] VITALS: BMI 35.0
[2023-01-03 01:05] LABS: Troponin I 0.183 ng/mL (< 0.028)
[2023-01-03] MEDS: Nitroglycerin 2% Ointment 1 INCH/1 GM Packet TOP SCH ×3 (01:20→08:45)
[2023-01-03] MEDS: Potassium Chloride 20 MEQ TAB PO SCH ×3 (01:26→01:39)
[2023-01-03] MEDS: Potassium Chloride 20 MEQ in Premix Bag 1 BAG IVPB SCH ×3 (01:27→05:10)
[2023-01-03] MEDS: Acetaminophen 325 MG TAB PO PRN (01:32)
[2023-01-03 02:34] LABS: Amphetamine Detected (NotDetected); Barbiturates Screen Not Detected (NotDetected); Benzodiazepine Screen Not Detected (NotDetected); Cocaine Metabolite Screen Not Detected (NotDetected); Methadone Not Detected (NotDetected); Methamphetamine Detected (NotDetected); Opiate Screen Not Detected (NotDetected); Oxycodone Screen Not Detected (NotDetected); Phencyclidine (PCP) Not Detected (NotDetected); THC/Cannabinoid Screen Not Detected (NotDetected); Tricyclic Screen Not Detected (NotDetected)
[2023-01-03] MEDS ORDERED: Magnesium Sulfate In Water 4 GM in Premix Bag 1 BAG IVPB SCH (03:00)
[2023-01-03] MEDS ORDERED: Enoxaparin 120 MG/0.8 ML SYRINGE SC SCH (03:00)
[2023-01-03 03:28] LABS: #Basophils 0.1 thou/uL (0.0-0.2); #Eosinphils 1.4 thou/uL (0.0-0.7); #Monocytes 1.2 thou/uL (0.11-0.59); #Neutrophils 7.2 thou/uL (1.40-6.50); %Basophils 0.6 % (0.0-1.0); %Eosinophils 12.1 % (0.0-10.0); %Lymphocytes 12.5 % (21.0-51.0); %Monocytes 10.6 % (0.0-10.0); %Neutrophils 63.9 % (42.0-75.0); Hemoglobin 13.8 g/dL (14.0-18.0); Mean Corpuscular HGB CONC 31.2 g/dL (32.0-36.0); Mean Corpuscular Hemoglobin 25.9 pg (27.0-31.0); Mean Corpuscular Volume 83.1 fl (78.0-98.0); Mean Platelet Volume 10.2 fL (7.4-10.4); Platelet Count 246 10x3/uL (130-400); RBC Distribution Width 19.1 % (11.5-14.5); Red Blood Cell (RBC) Count 5.32 mill/uL (4.70-6.10); White Blood Cell (WBC) Count 11.2 10x3/uL (4.8-10.8)
[2023-01-03] MEDS ORDERED: diphenhydrAMINE 25 MG CAP PO SCH (03:45)
[2023-01-03 03:59] LABS: ALT (SGPT) 50 U/L (8-55); AST (SGOT) 34 U/L (5-34); Albumin 2.9 g/dL (3.5-5.0); Alkaline Phosphatase 95 U/L (40-110); Anion Gap 14 mmol/L (10-20); BUN (Urea Nitrogen) 15 mg/dL (8.9-20.6); Bilirubin, Total 1.4 mg/dL (0.2-1.2); Calc. Creatinine Clearance 112 mL/min (70-130); Calcium 8.2 mg/dL (7.8-10.44); Carbon Dioxide 25 mmol/L (22-29); Chloride 104 mmol/L (98-107); Estimated GFR 70; Globulin 2.4 g/dL (2.4-3.5); Glucose 119 mg/dL (70-105); Magnesium 1.5 mg/dL (1.6-2.6); Potassium 3.4 mmol/L (3.5-5.1); Protein, Total 5.3 g/dL (6.0-8.3); Sodium 140 mmol/L (136-145)
[2023-01-03 04:05] LABS: Troponin I 0.234 ng/mL (< 0.028)
[2023-01-03] MEDS: Furosemide 40 MG/4 ML VIAL SLOW IVP SCH ×2 (05:05→13:53)
[2023-01-03] MEDS ORDERED: Potassium Chloride 20 MEQ TAB PO SCH (08:00)
[2023-01-03] MEDS ORDERED: Magnesium 2 GM/50 ML(in water) 2 GM in Premix Bag 1 BAG IVPB SCH (08:00)
[2023-01-03 12:19] LABS: Potassium 3.9 mmol/L (3.5-5.1)
[2023-01-03] MEDS ORDERED: Spironolactone 25 MG TAB PO SCH (13:30)
[2023-01-03] MEDS ORDERED: Polyethylene Glycol 3350 17 GM Packet PO PRN (13:54)
[2023-01-03] MEDS ORDERED: Senokot S 8.6-50 MG TAB PO SCH ×2 (14:00→21:00)
[2023-01-03] MEDS: Carvedilol 3.125 MG TAB PO SCH (17:36)
[2023-01-03] MEDS: Senokot S 8.6-50 MG TAB PO SCH (21:03)
[2023-01-03] MEDS: Enoxaparin 120 MG/0.8 ML SYRINGE SC SCH (21:03)
[2023-01-04] MEDS: Acetaminophen 325 MG TAB PO PRN (01:49)
[2023-01-04 05:45] LABS: #Basophils 0.1 thou/uL (0.0-0.2); #Eosinphils 0.9 thou/uL (0.0-0.7); #Monocytes 1.1 thou/uL (0.11-0.59); #Neutrophils 8.8 thou/uL (1.40-6.50); %Basophils 0.4 % (0.0-1.0); %Eosinophils 7.5 % (0.0-10.0); %Monocytes 9.2 % (0.0-10.0); %Neutrophils 72.7 % (42.0-75.0); Hemoglobin 14.6 g/dL (14.0-18.0); Mean Corpuscular HGB CONC 31.1 g/dL (32.0-36.0); Mean Corpuscular Hemoglobin 25.5 pg (27.0-31.0); Mean Corpuscular Volume 82.2 fl (78.0-98.0); Mean Platelet Volume 10.2 fL (7.4-10.4); Platelet Count 280 10x3/uL (130-400); RBC Distribution Width 19.7 % (11.5-14.5); Red Blood Cell (RBC) Count 5.72 mill/uL (4.70-6.10); White Blood Cell (WBC) Count 12.2 10x3/uL (4.8-10.8)
[2023-01-04 06:10] LABS: ALT (SGPT) 48 U/L (8-55); AST (SGOT) 35 U/L (5-34); Albumin 3.1 g/dL (3.5-5.0); Alkaline Phosphatase 102 U/L (40-110); Anion Gap 17 mmol/L (10-20); BUN (Urea Nitrogen) 22 mg/dL (8.9-20.6); Bilirubin, Total 1.6 mg/dL (0.2-1.2); Calc. Creatinine Clearance 119 mL/min (70-130); Calcium 8.6 mg/dL (7.8-10.44); Carbon Dioxide 20 mmol/L (22-29); Chloride 101 mmol/L (98-107); Estimated GFR 75; Globulin 2.6 g/dL (2.4-3.5); Glucose 106 mg/dL (70-105); Magnesium 1.9 mg/dL (1.6-2.6); Potassium 4.5 mmol/L (3.5-5.1); Protein, Total 5.7 g/dL (6.0-8.3); Sodium 133 mmol/L (136-145)
[2023-01-04] MEDS: Furosemide 40 MG/4 ML VIAL SLOW IVP SCH ×3 (06:24→22:02)
[2023-01-04] MEDS ORDERED: Spironolactone 25 MG TAB PO SCH (08:00)
[2023-01-04] MEDS ORDERED: Magnesium 2 GM/50 ML(in water) 2 GM in Premix Bag 1 BAG IVPB SCH (08:00)
[2023-01-04] MEDS: Carvedilol 3.125 MG TAB PO SCH ×2 (08:47→17:01)
[2023-01-04] MEDS: Senokot S 8.6-50 MG TAB PO SCH ×2 (08:47→20:49)
[2023-01-04] MEDS: Enoxaparin 120 MG/0.8 ML SYRINGE SC SCH ×2 (08:48→20:46)
[2023-01-04] MEDS ORDERED: Furosemide 100 MG in Sodium Chloride 0.9% 100 ML IVPB SCH (09:45)
[2023-01-04] MEDS: DOBUTamine 500 mg/250 ml 250 ML IVPB SCH (10:56)
[2023-01-04] MEDS: Albumin 25% 25 GM/100 ML BOT IVPB SCH ×3 (10:57→22:02)
[2023-01-04] MEDS: Ipratropium Bromide 2.5 ml Neb NEB SCH ×4 (11:00→22:16)
[2023-01-04] MEDS: guaiFENesin ER 600 MG TAB PO SCH (20:49)
[2023-01-05] MEDS: Ipratropium Bromide 2.5 ml Neb NEB SCH ×4 (03:03→13:56)
[2023-01-05] MEDS: Albumin 25% 25 GM/100 ML BOT IVPB SCH ×2 (03:06→10:50)
[2023-01-05] MEDS: DOBUTamine 500 mg/250 ml 250 ML IVPB SCH ×2 (03:11→21:38)
[2023-01-05] MEDS: Furosemide 40 MG/4 ML VIAL SLOW IVP SCH (05:30)
[2023-01-05] MEDS ORDERED: Metolazone 5 MG TAB PO SCH (07:45)
[2023-01-05] MEDS ORDERED: Magnesium 2 GM/50 ML(in water) 2 GM in Premix Bag 1 BAG IVPB SCH (08:00)
[2023-01-05] MEDS ORDERED: Furosemide 40 MG/4 ML VIAL SLOW IVP SCH (08:00)
[2023-01-05] MEDS: Enoxaparin 120 MG/0.8 ML SYRINGE SC SCH ×2 (09:21→21:29)
[2023-01-05] MEDS: Spironolactone 25 MG TAB PO SCH (09:23)
[2023-01-05] MEDS: Senokot S 8.6-50 MG TAB PO SCH ×2 (09:24→21:28)
[2023-01-05] MEDS: guaiFENesin ER 600 MG TAB PO SCH ×2 (09:24→21:28)
[2023-01-05] MEDS: Carvedilol 3.125 MG TAB PO SCH (11:03)
[2023-01-05] MEDS: Furosemide 100 MG/10 ML VIAL SLOW IVP SCH (14:05)
[2023-01-05] MEDS ORDERED: Ipratropium Bromide 2.5 ml Neb NEB PRN (14:09)
[2023-01-05] MEDS ORDERED: Moisturizing Cream (Eucerin) 113 GM JAR TOP PRN (18:36)
[2023-01-05] MEDS: Atorvastatin Calcium 40 MG TAB PO SCH (21:28)
[2023-01-06 05:07] LABS: #Basophils 0.1 thou/uL (0.0-0.2); #Eosinphils 1.2 thou/uL (0.0-0.7); #Monocytes 1.2 thou/uL (0.11-0.59); #Neutrophils 8.4 thou/uL (1.40-6.50); %Basophils 0.4 % (0.0-1.0); %Eosinophils 9.8 % (0.0-10.0); %Lymphocytes 10.3 % (21.0-51.0); %Monocytes 9.7 % (0.0-10.0); %Neutrophils 69.3 % (42.0-75.0); Hemoglobin 13.6 g/dL (14.0-18.0); Mean Corpuscular HGB CONC 31.9 g/dL (32.0-36.0); Mean Corpuscular Volume 81.5 fl (78.0-98.0); Mean Platelet Volume 10.4 fL (7.4-10.4); Platelet Count 238 10x3/uL (130-400); RBC Distribution Width 19.1 % (11.5-14.5); Red Blood Cell (RBC) Count 5.24 mill/uL (4.70-6.10); White Blood Cell (WBC) Count 12.1 10x3/uL (4.8-10.8)
[2023-01-06] MEDS: Furosemide 100 MG/10 ML VIAL SLOW IVP SCH ×2 (05:17→13:14)
[2023-01-06 05:30] LABS: Anion Gap 12 mmol/L (10-20); BUN (Urea Nitrogen) 21 mg/dL (8.9-20.6); Calc. Creatinine Clearance 92 mL/min (70-130); Calcium 9.6 mg/dL (7.8-10.44); Carbon Dioxide 32 mmol/L (22-29); Chloride 95 mmol/L (98-107); Estimated GFR 59; Glucose 110 mg/dL (70-105); Potassium 3.3 mmol/L (3.5-5.1); Sodium 136 mmol/L (136-145)
[2023-01-06] MEDS: hydrALAZINE 25 MG TAB PO SCH ×3 (07:59→20:42)
[2023-01-06] MEDS: guaiFENesin ER 600 MG TAB PO SCH ×2 (07:59→20:43)
[2023-01-06] MEDS: Senokot S 8.6-50 MG TAB PO SCH ×2 (07:59→20:52)
[2023-01-06] MEDS: Spironolactone 25 MG TAB PO SCH (07:59)
[2023-01-06] MEDS ORDERED: Potassium Chloride 20 MEQ TAB PO SCH (08:00)
[2023-01-06] MEDS: Amiodarone 200 MG TAB PO SCH (08:00)
[2023-01-06] MEDS: Aspirin 81 mg Enteric Coated Tablet PO SCH (08:00)
[2023-01-06] MEDS: Enoxaparin 120 MG/0.8 ML SYRINGE SC SCH ×2 (08:00→20:42)
[2023-01-06] MEDS: DOBUTamine 500 mg/250 ml 250 ML IVPB SCH (13:37)
[2023-01-06] MEDS: Atorvastatin Calcium 40 MG TAB PO SCH (20:43)
[2023-01-06] MEDS: Acetaminophen 325 MG TAB PO PRN (20:50)
[2023-01-07] MEDS: DOBUTamine 500 mg/250 ml 250 ML IVPB SCH (05:07)
[2023-01-07] MEDS: Furosemide 100 MG/10 ML VIAL SLOW IVP SCH ×2 (05:07→14:25)
[2023-01-07] MEDS: Aspirin 81 mg Enteric Coated Tablet PO SCH (07:32)
[2023-01-07] MEDS: hydrALAZINE 25 MG TAB PO SCH ×3 (07:32→21:06)
[2023-01-07] MEDS: Isosorbide Dinitrate 20 MG TAB PO SCH ×3 (07:33→21:05)
[2023-01-07] MEDS: Spironolactone 25 MG TAB PO SCH (07:33)
[2023-01-07] MEDS: Amiodarone 200 MG TAB PO SCH (07:33)
[2023-01-07] MEDS: Senokot S 8.6-50 MG TAB PO SCH ×2 (07:33→21:05)
[2023-01-07] MEDS: guaiFENesin ER 600 MG TAB PO SCH ×2 (07:34→21:05)
[2023-01-07] MEDS: Enoxaparin 120 MG/0.8 ML SYRINGE SC SCH ×2 (07:34→21:05)
[2023-01-07 09:13] LABS: Anion Gap 19 mmol/L (10-20); BUN (Urea Nitrogen) 25 mg/dL (8.9-20.6); Calc. Creatinine Clearance 87 mL/min (70-130); Calcium 9.9 mg/dL (7.8-10.44); Carbon Dioxide 27 mmol/L (22-29); Chloride 93 mmol/L (98-107); Estimated GFR 61; Glucose 105 mg/dL (70-105); Potassium 4.1 mmol/L (3.5-5.1); Sodium 135 mmol/L (136-145)
[2023-01-07] MEDS: Acetaminophen 325 MG TAB PO PRN (14:24)
[2023-01-07] MEDS ORDERED: traMADol HCl 50 MG TAB PO PRN ×2 (15:49)
[2023-01-07] MEDS: cefTRIAXone\\ROCEPHIN 1 GM in Sodium Chloride 0.9% 100 ML IVPB SCH (17:40)
[2023-01-07] MEDS: Doxycycline 100 MG in Sodium Chloride 0.9% 100 ML IVPB SCH (21:04)
[2023-01-07] MEDS: Atorvastatin Calcium 40 MG TAB PO SCH (21:06)
[2023-01-08 05:05] LABS: Anion Gap 16 mmol/L (10-20); BUN (Urea Nitrogen) 30 mg/dL (8.9-20.6); Calc. Creatinine Clearance 71 mL/min (70-130); Carbon Dioxide 30 mmol/L (22-29); Chloride 93 mmol/L (98-107); Potassium 3.3 mmol/L (3.5-5.1); Sodium 136 mmol/L (136-145)
[2023-01-08 05:06] LABS: Calcium 9.2 mg/dL (7.8-10.44); Estimated GFR 48; Glucose 112 mg/dL (70-105); Magnesium 1.7 mg/dL (1.6-2.6)
[2023-01-08] MEDS: Furosemide 100 MG/10 ML VIAL SLOW IVP SCH (05:09)
[2023-01-08] MEDS ORDERED: Potassium Chloride 20 MEQ TAB PO SCH (08:00)
[2023-01-08] MEDS ORDERED: Magnesium 2 GM/50 ML(in water) 2 GM in Premix Bag 1 BAG IVPB SCH (08:00)
[2023-01-08] MEDS: Acetaminophen 325 MG TAB PO PRN ×2 (08:02→23:46)
[2023-01-08] MEDS: hydrALAZINE 25 MG TAB PO SCH ×3 (08:03→20:50)
[2023-01-08] MEDS: Isosorbide Dinitrate 20 MG TAB PO SCH ×3 (08:03→20:49)
[2023-01-08] MEDS: Aspirin 81 mg Enteric Coated Tablet PO SCH (08:03)
[2023-01-08] MEDS: Amiodarone 200 MG TAB PO SCH (08:04)
[2023-01-08] MEDS: Carvedilol 6.25 MG TAB PO SCH ×2 (08:04→16:11)
[2023-01-08] MEDS: guaiFENesin ER 600 MG TAB PO SCH ×2 (08:04→20:49)
[2023-01-08] MEDS: Senokot S 8.6-50 MG TAB PO SCH ×2 (08:05→20:49)
[2023-01-08] MEDS: Enoxaparin 120 MG/0.8 ML SYRINGE SC SCH (08:43)
[2023-01-08] MEDS: Doxycycline 100 MG in Sodium Chloride 0.9% 100 ML IVPB SCH ×2 (08:44→20:49)
[2023-01-08] MEDS: cefTRIAXone\\ROCEPHIN 1 GM in Sodium Chloride 0.9% 100 ML IVPB SCH (16:01)
[2023-01-08] MEDS: Apixaban 5 MG TAB PO SCH (20:49)
[2023-01-08] MEDS: Atorvastatin Calcium 40 MG TAB PO SCH (20:49)
[2023-01-09 03:43] LABS: #Basophils 0.1 thou/uL (0.0-0.2); #Eosinphils 0.5 thou/uL (0.0-0.7); #Monocytes 1.8 thou/uL (0.11-0.59); #Neutrophils 6.2 thou/uL (1.40-6.50); %Basophils 0.6 % (0.0-1.0); %Eosinophils 4.7 % (0.0-10.0); %Lymphocytes 12.4 % (21.0-51.0); %Monocytes 17.9 % (0.0-10.0); %Neutrophils 63.4 % (42.0-75.0); Hemoglobin 14.6 g/dL (14.0-18.0); Mean Corpuscular Hemoglobin 25.8 pg (27.0-31.0); Mean Corpuscular Volume 80.6 fl (78.0-98.0); Mean Platelet Volume 10.4 fL (7.4-10.4); Platelet Count 219 10x3/uL (130-400); RBC Distribution Width 19.6 % (11.5-14.5); Red Blood Cell (RBC) Count 5.66 mill/uL (4.70-6.10); White Blood Cell (WBC) Count 9.8 10x3/uL (4.8-10.8)
[2023-01-09 04:08] LABS: Anion Gap 16 mmol/L (10-20); BUN (Urea Nitrogen) 34 mg/dL (8.9-20.6); Calc. Creatinine Clearance 72 mL/min (70-130); Calcium 8.9 mg/dL (7.8-10.44); Carbon Dioxide 24 mmol/L (22-29); Chloride 95 mmol/L (98-107); Estimated GFR 54; Glucose 127 mg/dL (70-105); Potassium 3.6 mmol/L (3.5-5.1); Sodium 131 mmol/L (136-145)
[2023-01-09] MEDS: Doxycycline 100 MG in Sodium Chloride 0.9% 100 ML IVPB SCH ×2 (08:35→21:48)
[2023-01-09] MEDS: Apixaban 5 MG TAB PO SCH ×2 (08:35→21:48)
[2023-01-09] MEDS: Amiodarone 200 MG TAB PO SCH (08:35)
[2023-01-09] MEDS: Aspirin 81 mg Enteric Coated Tablet PO SCH (08:35)
[2023-01-09] MEDS: Carvedilol 6.25 MG TAB PO SCH ×2 (08:35→16:57)
[2023-01-09] MEDS: Senokot S 8.6-50 MG TAB PO SCH ×2 (08:36→21:00)
[2023-01-09] MEDS: hydrALAZINE 25 MG TAB PO SCH ×3 (08:36→23:39)
[2023-01-09] MEDS: guaiFENesin ER 600 MG TAB PO SCH ×2 (08:36→21:48)
[2023-01-09] MEDS: Isosorbide Dinitrate 20 MG TAB PO SCH ×3 (08:37→21:48)
[2023-01-09] MEDS ORDERED: Magnesium 2 GM/50 ML(in water) 2 GM in Premix Bag 1 BAG IVPB SCH (09:30)
[2023-01-09] MEDS ORDERED: Potassium Chloride 20 MEQ TAB PO SCH (09:30)
[2023-01-09 09:38] LABS: Magnesium 1.9 mg/dL (1.6-2.6)
[2023-01-09] MEDS: cefTRIAXone\\ROCEPHIN 1 GM in Sodium Chloride 0.9% 100 ML IVPB SCH (15:36)
[2023-01-09 17:41] LABS: Bacteria/HPF None Seen HPF (None Seen); Bilirubin Negative (Negative); Blood, Urine Negative (Negative); CAUTI Indications for Culture Fever or rigors; Clarity Clear (Clear); Glucose, Urine (Dipstick) Normal (Negative); Ketone, Urine Negative (Negative); Leukocyte Negative Leu/uL (Negative); Nitrite Negative (Negative); Protein, Urine (Dipstick) 50 mg/dL (Neg-Trace); RBC/HPF 0-3 HPF (0-3); Specific Gravity, Urine 1.026 (1.002-1.036); Squamous Epithelial 0-3 HPF (0-3); WBC/HPF 0-3 HPF (0-3); pH, Urine 5.5 (5.0-9.0)
[2023-01-09 17:56] LABS: Urine Culture Reflex No No
[2023-01-09] MEDS: Atorvastatin Calcium 40 MG TAB PO SCH (21:48)
[2023-01-10] MEDS ORDERED: Melatonin 3 MG TAB PO PRN (00:40)
[2023-01-10 05:05] LABS: #Monocytes 1.2 thou/uL (0.11-0.59); %Basophils 0.5 % (0.0-1.0); %Eosinophils 11.9 % (0.0-10.0); %Lymphocytes 13.5 % (21.0-51.0); %Monocytes 14.1 % (0.0-10.0); %Neutrophils 59.1 % (42.0-75.0); Hemoglobin 13.6 g/dL (14.0-18.0); Mean Corpuscular HGB CONC 31.2 g/dL (32.0-36.0); Mean Corpuscular Hemoglobin 25.9 pg (27.0-31.0); Mean Platelet Volume 10.9 fL (7.4-10.4); Platelet Count 227 10x3/uL (130-400); Red Blood Cell (RBC) Count 5.25 mill/uL (4.70-6.10); White Blood Cell (WBC) Count 8.5 10x3/uL (4.8-10.8)
[2023-01-10 06:05] LABS: Anion Gap 13 mmol/L (10-20); BUN (Urea Nitrogen) 36 mg/dL (8.9-20.6); Calc. Creatinine Clearance 72 mL/min (70-130); Calcium 8.3 mg/dL (7.8-10.44); Carbon Dioxide 24 mmol/L (22-29); Chloride 98 mmol/L (98-107); Estimated GFR 53; Glucose 131 mg/dL (70-105); Potassium 3.9 mmol/L (3.5-5.1); Sodium 131 mmol/L (136-145)
[2023-01-10] MEDS: Aspirin 81 mg Enteric Coated Tablet PO SCH (09:03)
[2023-01-10] MEDS: Apixaban 5 MG TAB PO SCH (09:03)
[2023-01-10] MEDS: Amiodarone 200 MG TAB PO SCH (09:03)
[2023-01-10] MEDS: Carvedilol 6.25 MG TAB PO SCH (09:03)
[2023-01-10] MEDS: Doxycycline 100 MG in Sodium Chloride 0.9% 100 ML IVPB SCH (09:03)
[2023-01-10] MEDS: guaiFENesin ER 600 MG TAB PO SCH (09:03)
[2023-01-10] MEDS: hydrALAZINE 25 MG TAB PO SCH (09:04)
[2023-01-10] MEDS: Isosorbide Dinitrate 20 MG TAB PO SCH (09:04)
[2023-01-10] MEDS: Senokot S 8.6-50 MG TAB PO SCH (09:04)
[2023-01-10 11:38] VITALS: BP 108/62; TEMP 98.6
== END 2023-01-10 15:36 | disposition home or self-care (01) | DRG 291 ==
LOC: ERS 20:27 → 2NO 23:30 → OBSVTOIN 01-04 09:27
PROVIDERS: ADMIT Student in an Organized Health Care Education/Training Program; ATTEND Family Medicine
PROC: 5A09357 Assistance with Respiratory Ventilation, Less than 24 Consecutive Hours, Continuous Positive Airway Pressure (ICD-10-PCS; principal; 2023-01-04)
PROC: 30233J1 Transfusion of Nonautologous Serum Albumin into Peripheral Vein, Percutaneous Approach (ICD-10-PCS; 2023-01-04)
DX: I13.0 Hypertensive heart and chronic kidney disease with heart failure and stage 1 through stage 4 chronic kidney disease, or unspecified chronic kidney disease (principal); I50.23 Acute on chronic systolic (congestive) heart failure; J18.9 Pneumonia, unspecified organism; I47.29 Other ventricular tachycardia; N17.9 Acute kidney failure, unspecified; I42.9 Cardiomyopathy, unspecified; E78.5 Hyperlipidemia, unspecified; J44.9 Chronic obstructive pulmonary disease, unspecified; I45.81 Long QT syndrome; E87.6 Hypokalemia; E80.6 Other disorders of bilirubin metabolism; F15.10 Other stimulant abuse, uncomplicated; E83.42 Hypomagnesemia; E66.9 Obesity, unspecified; I51.3 Intracardiac thrombosis, not elsewhere classified; G47.33 Obstructive sleep apnea (adult) (pediatric); N18.2 Chronic kidney disease, stage 2 (mild); R77.8 Other specified abnormalities of plasma proteins; Z91.148 Patient's other noncompliance with medication regimen for other reason; Z86.79 Personal history of other diseases of the circulatory system; Z68.35 Body mass index [BMI] 35.0-35.9, adult; Z86.711 Personal history of pulmonary embolism; Z79.899 Other long term (current) drug therapy; Z79.82 Long term (current) use of aspirin; Z90.49 Acquired absence of other specified parts of digestive tract
CPT/HCPCS: 36415; 71045; 71046; 80048; 80053; 80306; 81001; 82553; 83735; 83880; 84484; 85025; 87040; 93005; 93010; 94640; 94660; 96372; 96374; 96375; 96376; 97139; G0378; J0696; J1250; J1650; J1940; J3475; J3480; J3490; J7620; P9047

== ENCOUNTER 2023-02-09 18:35 | Inpatient (IN) | payer OTHER ==
[~2023-02-09 18:35] MED LIST changes: -Iopamidol 370 76% 50 ML VIAL FS ONE; +Iopamidol-370 76% 500 ML MDV (1 ML CHARGE) ONE
[2023-02-09] MEDS ORDERED: methylPREDNISolone Sod Succ/PF 125 MG/2 ML VIAL ONE (19:04)
[2023-02-09] MEDS ORDERED: Furosemide 40 MG/4 ML VIAL ONE (19:04)
[2023-02-09] MEDS ORDERED: LevoFLOXacin 750 mg/D5W 150 ml Premix Bag ONE (19:04)
[2023-02-09] MEDS ORDERED: Aspirin 325 MG TAB ONE (19:04)
[2023-02-09 19:57] LABS: #Monocytes 0.5 thou/uL (0.11-0.59); #Neutrophils 20.3 thou/uL (1.40-6.50); %Basophils 0.2 % (0.0-1.0); %Monocytes 2.2 % (0.0-10.0); %Neutrophils 93.6 % (42.0-75.0); Hematocrit 49.4 % (42.0-52.0); Hemoglobin 16.2 g/dL (14.0-18.0); Mean Corpuscular HGB CONC 32.8 g/dL (32.0-36.0); Mean Corpuscular Hemoglobin 25.8 pg (27.0-31.0); Mean Corpuscular Volume 78.7 fl (78.0-98.0); Platelet Count 375 10x3/uL (130-400); RBC Distribution Width 22.1 % (11.5-14.5); Red Blood Cell (RBC) Count 6.28 mill/uL (4.70-6.10); White Blood Cell (WBC) Count 21.7 10x3/uL (4.8-10.8)
[2023-02-09 20:14] LABS: INR-International Normal Ratio 2.3; PTT 32.3 sec (22.9-36.1); Prothrombin Time 25.9 sec (12.0-14.7)
[2023-02-09 20:25] LABS: Bacteria/HPF None Seen HPF (None Seen); Bilirubin Negative (Negative); Blood, Urine Trace (Negative); CAUTI Indications for Culture Pelvic or flank pain; Clarity Clear (Clear); Glucose, Urine (Dipstick) Normal (Negative); Ketone, Urine Negative (Negative); Leukocyte Negative Leu/uL (Negative); Nitrite Negative (Negative); Protein, Urine (Dipstick) 10 mg/dL (Neg-Trace); RBC/HPF 0-3 HPF (0-3); Specific Gravity, Urine 1.012 (1.002-1.036); Squamous Epithelial None Seen HPF (0-3); Urobilinogen Normal mg/dL (Less than 2); WBC/HPF 0-3 HPF (0-3)
[2023-02-09 20:26] LABS: Urine Culture Reflex No No
[2023-02-09 20:27] LABS: ALT (SGPT) 351 U/L (8-55); AST (SGOT) 1122 U/L (5-34); Albumin 2.8 g/dL (3.5-5.0); Alkaline Phosphatase 168 U/L (40-110); Anion Gap 19 mmol/L (10-20); BUN (Urea Nitrogen) 53 mg/dL (8.9-20.6); Bilirubin, Total 3.5 mg/dL (0.2-1.2); Calc. Creatinine Clearance 0 mL/min (70-130); Calcium 8.7 mg/dL (7.8-10.44); Carbon Dioxide 20 mmol/L (22-29); Chloride 93 mmol/L (98-107); Estimated GFR 55; Globulin 3.6 g/dL (2.4-3.5); Glucose 112 mg/dL (70-105); Lipase 28 U/L (8-78); Magnesium 1.7 mg/dL (1.6-2.6); Potassium 4.5 mmol/L (3.5-5.1); Protein, Total 6.4 g/dL (6.0-8.3); Sodium 127 mmol/L (136-145)
[2023-02-09 20:31] LABS: Troponin I 0.061 ng/mL (< 0.028)
[2023-02-09 21:02] LABS: SARS-CoV-2 NAA Rapid Test Not Detected (NotDetected)
[2023-02-09] MEDS ORDERED: LORazepam 2 MG/ML SYR.(CARPUJECT) ONE (21:52)
[2023-02-09] MEDS ORDERED: Vancomycin 1 GM/200 ML (FROZEN) BAG ONE (21:52)
[2023-02-09] MEDS ORDERED: Heparin 10,000 UNITS/ 10 ML VIAL SLOW IVP SCH (22:30)
[2023-02-09] MEDS ORDERED: Heparin 25,000 units/D5W 500 ML IVPB SCH (22:30)
[2023-02-09 22:45] LABS: Hematocrit 46.6 % (42.0-52.0); Hemoglobin 15.2 g/dL (14.0-18.0); Platelet Count 358 10x3/uL (130-400)
[2023-02-09] MEDS ORDERED: Ipratropium/Albuterol 3 ML NEB NEB PRN (22:49)
[2023-02-09 23:02] LABS: Lactic Acid 2.5 mmol/L (0.5-2.2)
[2023-02-09] MEDS ORDERED: Cefepime 1 GM in Sodium Chloride 0.9% 100 ML IVPB SCH (23:59)
[2023-02-10 00:06] VITALS: BMI 33.0
[2023-02-10] MEDS ORDERED: Vancomycin 1 GM in Premix Bag 1 BAG IVPB SCH (01:00)
[2023-02-10 05:05] LABS: #Basophils 0.1 thou/uL (0.0-0.2); #Monocytes 0.4 thou/uL (0.11-0.59); #Neutrophils 17.1 thou/uL (1.40-6.50); %Basophils 0.3 % (0.0-1.0); %Lymphocytes 3.4 % (21.0-51.0); %Monocytes 2.4 % (0.0-10.0); Hematocrit 45.2 % (42.0-52.0); Hemoglobin 15.1 g/dL (14.0-18.0); Mean Corpuscular HGB CONC 33.4 g/dL (32.0-36.0); Mean Corpuscular Hemoglobin 26.4 pg (27.0-31.0); Mean Corpuscular Volume 78.9 fl (78.0-98.0); Mean Platelet Volume 11.5 fL (7.4-10.4); Platelet Count 389 10x3/uL (130-400); RBC Distribution Width 22.2 % (11.5-14.5); Red Blood Cell (RBC) Count 5.73 mill/uL (4.70-6.10); White Blood Cell (WBC) Count 18.4 10x3/uL (4.8-10.8)
[2023-02-10 05:29] LABS: ALT (SGPT) 359 U/L (8-55); AST (SGOT) 1020 U/L (5-34); Albumin 2.7 g/dL (3.5-5.0); Alkaline Phosphatase 160 U/L (40-110); Anion Gap 15 mmol/L (10-20); BUN (Urea Nitrogen) 51 mg/dL (8.9-20.6); Bilirubin, Total 2.8 mg/dL (0.2-1.2); Calc. Creatinine Clearance 94 mL/min (70-130); Calcium 8.3 mg/dL (7.8-10.44); Carbon Dioxide 22 mmol/L (22-29); Chloride 95 mmol/L (98-107); Estimated GFR 61; Globulin 3.4 g/dL (2.4-3.5); Glucose 217 mg/dL (70-105); Magnesium 1.7 mg/dL (1.6-2.6); Potassium 4.2 mmol/L (3.5-5.1); Protein, Total 6.1 g/dL (6.0-8.3); Sodium 128 mmol/L (136-145)
[2023-02-10] MEDS: hydrALAZINE 25 MG TAB PO SCH ×3 (08:16→20:28)
[2023-02-10] MEDS: Furosemide 40 MG/4 ML VIAL SLOW IVP SCH ×3 (08:16→20:26)
[2023-02-10] MEDS: Aspirin Chewable 81 MG TAB PO SCH (08:17)
[2023-02-10] MEDS: Amiodarone 200 MG TAB PO SCH (08:17)
[2023-02-10] MEDS: Isosorbide Dinitrate 20 MG TAB PO SCH ×3 (08:17→20:26)
[2023-02-10] MEDS ORDERED: Vancomycin HCl 1 GM in Sodium Chloride 0.9% 250 ML 250 ML IVPB SCH (09:00)
[2023-02-10] MEDS ORDERED: methylPREDNISolone Sod Succ 40 MG VIAL IVP SCH (09:00)
[2023-02-10] MEDS: Vancomycin 1.5 GRAM/300 ML BAG 1.5 GM in Premix Bag 1 BAG IVPB SCH ×2 (09:46→22:53)
[2023-02-10 10:34] LABS: INR-International Normal Ratio 2.3; PTT 41.8 sec (22.9-36.1); Prothrombin Time 26.5 sec (12.0-14.7)
[2023-02-10 10:41] LABS: Phosphorus 3.6 mg/dL (2.3-4.7)
[2023-02-10 10:48] LABS: Free T4 (Free Thyroxine) 0.86 ng/dL (0.70-1.48)
[2023-02-10 11:08] LABS: HBCM Index 0.06 S/CO (0-0.79); HBSAg Index 0.27 S/CO (0-0.99); Hep A IgM AB Non-Reactive S/CO (NonReactive); Hep A IgM S/CO 0.16 S/CO (0-0.79); Hep B Surf Ag Non-Reactive S/CO (NonReactive); Hep C IgG Ab Non-Reactive S/CO (NonReactive); Hep C Index 0.09 S/CO (0-0.79); Hepatitis B Core IgM Abs Non-Reactive S/CO (NonReactive)
[2023-02-10] MEDS: Cefepime 2 GM in Sodium Chloride 0.9% 100 ML IVPB SCH (11:11)
[2023-02-10] MEDS: Albumin 25% 25 GM/100 ML BOT IVPB SCH ×2 (11:11→17:20)
[2023-02-10 11:54] LABS: Magnesium 1.6 mg/dL (1.6-2.6)
[2023-02-10] MEDS: DOBUTamine 500 mg/250 ml 250 ML IVPB SCH (13:39)
[2023-02-10 15:14] LABS: Actual Bicarbonate (HCO3a) 27.5 mEq/L (22-28); Base Excess (BEa) 3.7 mEq/L (-2.0 to +3.0); CO2 Tension 38.8 mmHg (35.0-45.0); Calcium, Ionized (arterial) 1.04 mmol/L (1.12-1.30); Carboxyhemoglobin (COHb) 1.4 gm% (0.0-3.0); Hematocrit-ABG 41 % (42.0-52.0); O2 Tension (PaO2), arterial 59.5 mmHg (80.0-100.0); Potassium - ABG Lab 3.39 mmol/L (3.70-5.30); pH, Arterial 7.469 (7.35-7.45)
[2023-02-10 15:15] LABS: Puncture Site RRA
[2023-02-10] MEDS ORDERED: Heparin 25,000 units/D5W 500 ML IV SCH (18:00)
[2023-02-10] MEDS: Atorvastatin Calcium 40 MG TAB PO SCH (20:26)
[2023-02-10] MEDS ORDERED: Heparin 10,000 UNITS/ 10 ML VIAL SLOW IVP SCH (23:59)
[2023-02-11] MEDS: Albumin 25% 25 GM/100 ML BOT IVPB SCH ×2 (00:46→05:42)
[2023-02-11] MEDS: Cefepime 2 GM in Sodium Chloride 0.9% 100 ML IVPB SCH (00:47)
[2023-02-11 03:58] LABS: #Monocytes 0.6 thou/uL (0.11-0.59); #Neutrophils 19.4 thou/uL (1.40-6.50); %Basophils 0.1 % (0.0-1.0); %Lymphocytes 2.7 % (21.0-51.0); %Monocytes 3.1 % (0.0-10.0); %Neutrophils 92.8 % (42.0-75.0); Hematocrit 37.9 % (42.0-52.0); Hemoglobin 12.4 g/dL (14.0-18.0); Mean Corpuscular HGB CONC 32.7 g/dL (32.0-36.0); Mean Corpuscular Hemoglobin 26.2 pg (27.0-31.0); Mean Corpuscular Volume 80.1 fl (78.0-98.0); Mean Platelet Volume 11.4 fL (7.4-10.4); RBC Distribution Width 21.7 % (11.5-14.5); Red Blood Cell (RBC) Count 4.73 mill/uL (4.70-6.10); White Blood Cell (WBC) Count 20.9 10x3/uL (4.8-10.8)
[2023-02-11 04:02] LABS: Platelet Count 277 10x3/uL (130-400)
[2023-02-11 04:12] LABS: INR-International Normal Ratio 1.8; PTT 44.9 sec (22.9-36.1); Prothrombin Time 21.5 sec (12.0-14.7)
[2023-02-11 04:21] LABS: Anion Gap 15 mmol/L (10-20); BUN (Urea Nitrogen) 43 mg/dL (8.9-20.6); Calc. Creatinine Clearance 108 mL/min (70-130); Calcium 8.5 mg/dL (7.8-10.44); Carbon Dioxide 31 mmol/L (22-29); Chloride 94 mmol/L (98-107); Estimated GFR 72; Glucose 165 mg/dL (70-105); Magnesium 1.5 mg/dL (1.6-2.6); Potassium 3.1 mmol/L (3.5-5.1); Sodium 137 mmol/L (136-145)
[2023-02-11 05:36] LABS: Phosphorus 2.4 mg/dL (2.3-4.7)
[2023-02-11] MEDS: Furosemide 40 MG/4 ML VIAL SLOW IVP SCH ×2 (06:19→13:48)
[2023-02-11] MEDS: Potassium Chloride 20 MEQ TAB PO SCH (07:16)
[2023-02-11] MEDS: Aspirin Chewable 81 MG TAB PO SCH (07:59)
[2023-02-11] MEDS: hydrALAZINE 25 MG TAB PO SCH (07:59)
[2023-02-11] MEDS: Amiodarone 200 MG TAB PO SCH (07:59)
[2023-02-11] MEDS: Isosorbide Dinitrate 20 MG TAB PO SCH ×3 (07:59→21:22)
[2023-02-11 09:47] LABS: Vancomycin, Trough 33.5 ug/mL
[2023-02-11] MEDS ORDERED: Magnesium 2 GM/50 ML(in water) 2 GM in Premix Bag 1 BAG IVPB SCH (10:30)
[2023-02-11] MEDS ORDERED: LevoFLOXacin 750 MG TAB PO SCH (11:00)
[2023-02-11] MEDS: Vancomycin 1.5 GRAM/300 ML BAG 1.5 GM in Premix Bag 1 BAG IVPB SCH (11:01)
[2023-02-11] MEDS: CALCIUM GLUC 1 GM/NS 50 ML 1 GM in Premix Bag 1 BAG IVPB SCH ×2 (11:27→12:23)
[2023-02-11 12:48] LABS: Amphetamine Detected (NotDetected); Barbiturates Screen Not Detected (NotDetected); Benzodiazepine Screen Not Detected (NotDetected); Cocaine Metabolite Screen Not Detected (NotDetected); Methadone Not Detected (NotDetected); Methamphetamine Detected (NotDetected); Opiate Screen Not Detected (NotDetected); Oxycodone Screen Not Detected (NotDetected); Phencyclidine (PCP) Not Detected (NotDetected); THC/Cannabinoid Screen Not Detected (NotDetected); Tricyclic Screen Not Detected (NotDetected)
[2023-02-11] MEDS: DOBUTamine 500 mg/250 ml 250 ML IVPB SCH (18:31)
[2023-02-11] MEDS: Atorvastatin Calcium 40 MG TAB PO SCH (21:22)
[2023-02-11 22:34] LABS: Hemoglobin 12.5 g/dL (14.0-18.0); Platelet Count 270 10x3/uL (130-400)
[2023-02-12] MEDS ORDERED: Melatonin 3 MG TAB PO SCH (02:00)
[2023-02-12 04:20] LABS: #Monocytes 0.8 thou/uL (0.11-0.59); #Neutrophils 15.9 thou/uL (1.40-6.50); %Basophils 0.2 % (0.0-1.0); %Eosinophils 0.1 % (0.0-10.0); %Lymphocytes 4.7 % (21.0-51.0); %Monocytes 4.6 % (0.0-10.0); %Neutrophils 88.9 % (42.0-75.0); Hematocrit 38.9 % (42.0-52.0); Hemoglobin 12.1 g/dL (14.0-18.0); Mean Corpuscular HGB CONC 31.1 g/dL (32.0-36.0); Mean Corpuscular Hemoglobin 25.4 pg (27.0-31.0); Mean Corpuscular Volume 81.6 fl (78.0-98.0); Mean Platelet Volume 10.9 fL (7.4-10.4); Platelet Count 247 10x3/uL (130-400); RBC Distribution Width 22.3 % (11.5-14.5); Red Blood Cell (RBC) Count 4.77 mill/uL (4.70-6.10); White Blood Cell (WBC) Count 17.9 10x3/uL (4.8-10.8)
[2023-02-12 04:37] LABS: INR-International Normal Ratio 1.7; PTT 43.3 sec (22.9-36.1); Prothrombin Time 20.8 sec (12.0-14.7)
[2023-02-12 04:58] LABS: ALT (SGPT) 183 U/L (8-55); AST (SGOT) 202 U/L (5-34); Albumin 3.2 g/dL (3.5-5.0); Alkaline Phosphatase 133 U/L (40-110); Anion Gap 14 mmol/L (10-20); BUN (Urea Nitrogen) 35 mg/dL (8.9-20.6); Bilirubin, Total 2.4 mg/dL (0.2-1.2); Calc. Creatinine Clearance 106 mL/min (70-130); Calcium 8.7 mg/dL (7.8-10.44); Carbon Dioxide 33 mmol/L (22-29); Chloride 93 mmol/L (98-107); Estimated GFR 75; Globulin 2.6 g/dL (2.4-3.5); Glucose 181 mg/dL (70-105); Magnesium 1.5 mg/dL (1.6-2.6); Phosphorus 1.9 mg/dL (2.3-4.7); Potassium 3.4 mmol/L (3.5-5.1); Protein, Total 5.8 g/dL (6.0-8.3); Sodium 137 mmol/L (136-145)
[2023-02-12] MEDS: Furosemide 40 MG/4 ML VIAL SLOW IVP SCH ×2 (06:28→13:00)
[2023-02-12] MEDS: LevoFLOXacin 750 MG TAB PO SCH (06:30)
[2023-02-12] MEDS: Potassium Chloride 20 MEQ TAB PO SCH (07:11)
[2023-02-12] MEDS ORDERED: Electrolyte Replacement Protocol 1 EACH FS SCH (07:30)
[2023-02-12] MEDS ORDERED: Potassium Chloride 20 MEQ TAB PO SCH ×2 (08:00→12:00)
[2023-02-12] MEDS ORDERED: Magnesium 2 GM/50 ML(in water) 2 GM in Premix Bag 1 BAG IVPB SCH (08:00)
[2023-02-12] MEDS ORDERED: Electrolyte Replacement Protocol FS PRN (08:00)
[2023-02-12] MEDS: Amiodarone 200 MG TAB PO SCH (08:24)
[2023-02-12] MEDS: Aspirin Chewable 81 MG TAB PO SCH (08:24)
[2023-02-12] MEDS: Isosorbide Dinitrate 20 MG TAB PO SCH ×3 (08:24→20:26)
[2023-02-12] MEDS: PHOS-NAK 1 PKT PACK PO SCH ×2 (08:24→11:09)
[2023-02-12 16:37] LABS: Potassium 4.5 mmol/L (3.5-5.1)
[2023-02-12] MEDS: Atorvastatin Calcium 40 MG TAB PO SCH (20:26)
[2023-02-13 05:46] LABS: #Eosinphils 0.3 thou/uL (0.0-0.7); #Monocytes 0.7 thou/uL (0.11-0.59); %Basophils 0.3 % (0.0-1.0); %Eosinophils 1.8 % (0.0-10.0); %Lymphocytes 9.7 % (21.0-51.0); %Monocytes 4.7 % (0.0-10.0); %Neutrophils 82.3 % (42.0-75.0); Hematocrit 41.9 % (42.0-52.0); Hemoglobin 13.3 g/dL (14.0-18.0); Mean Corpuscular HGB CONC 31.7 g/dL (32.0-36.0); Mean Corpuscular Hemoglobin 25.8 pg (27.0-31.0); Mean Corpuscular Volume 81.4 fl (78.0-98.0); Platelet Count 253 10x3/uL (130-400); RBC Distribution Width 22.7 % (11.5-14.5); Red Blood Cell (RBC) Count 5.15 mill/uL (4.70-6.10); White Blood Cell (WBC) Count 14.5 10x3/uL (4.8-10.8)
[2023-02-13 05:58] LABS: INR-International Normal Ratio 1.5; PTT 49.3 sec (22.9-36.1); Prothrombin Time 18.2 sec (12.0-14.7)
[2023-02-13] MEDS: Furosemide 40 MG/4 ML VIAL SLOW IVP SCH ×2 (06:02→15:36)
[2023-02-13] MEDS: LevoFLOXacin 750 MG TAB PO SCH (06:02)
[2023-02-13 06:15] LABS: ALT (SGPT) 143 U/L (8-55); AST (SGOT) 103 U/L (5-34); Albumin 3.4 g/dL (3.5-5.0); Alkaline Phosphatase 135 U/L (40-110); Anion Gap 15 mmol/L (10-20); BUN (Urea Nitrogen) 28 mg/dL (8.9-20.6); Bilirubin, Total 2.5 mg/dL (0.2-1.2); Calc. Creatinine Clearance 142 mL/min (70-130); Calcium 9.2 mg/dL (7.8-10.44); Carbon Dioxide 30 mmol/L (22-29); Chloride 94 mmol/L (98-107); Estimated GFR 106; Globulin 2.9 g/dL (2.4-3.5); Glucose 102 mg/dL (70-105); Magnesium 1.5 mg/dL (1.6-2.6); Phosphorus 2.3 mg/dL (2.3-4.7); Potassium 3.8 mmol/L (3.5-5.1); Protein, Total 6.3 g/dL (6.0-8.3); Sodium 135 mmol/L (136-145)
[2023-02-13] MEDS ORDERED: Magnesium 2 GM/50 ML(in water) 2 GM in Premix Bag 1 BAG IVPB SCH (08:00)
[2023-02-13] MEDS: Isosorbide Dinitrate 20 MG TAB PO SCH ×3 (10:05→20:12)
[2023-02-13] MEDS: Potassium Chloride 20 MEQ TAB PO SCH (10:05)
[2023-02-13] MEDS: Amiodarone 200 MG TAB PO SCH (10:05)
[2023-02-13] MEDS: Aspirin Chewable 81 MG TAB PO SCH (10:06)
[2023-02-13] MEDS: Atorvastatin Calcium 40 MG TAB PO SCH (20:12)
[2023-02-13 23:03] LABS: Hematocrit 41.2 % (42.0-52.0); Hemoglobin 13.1 g/dL (14.0-18.0); Platelet Count 245 10x3/uL (130-400)
[2023-02-13] MEDS: Melatonin 3 MG TAB PO PRN (23:51)
[2023-02-14 04:39] LABS: #Eosinphils 0.5 thou/uL (0.0-0.7); #Monocytes 0.7 thou/uL (0.11-0.59); #Neutrophils 13.3 thou/uL (1.40-6.50); %Basophils 0.2 % (0.0-1.0); %Eosinophils 2.8 % (0.0-10.0); %Lymphocytes 9.7 % (21.0-51.0); %Monocytes 4.3 % (0.0-10.0); %Neutrophils 81.5 % (42.0-75.0); Hematocrit 40.2 % (42.0-52.0); Hemoglobin 12.7 g/dL (14.0-18.0); Mean Corpuscular HGB CONC 31.6 g/dL (32.0-36.0); Mean Corpuscular Hemoglobin 25.9 pg (27.0-31.0); Mean Corpuscular Volume 81.9 fl (78.0-98.0); Mean Platelet Volume 11.3 fL (7.4-10.4); Platelet Count 216 10x3/uL (130-400); RBC Distribution Width 22.5 % (11.5-14.5); Red Blood Cell (RBC) Count 4.91 mill/uL (4.70-6.10); White Blood Cell (WBC) Count 16.3 10x3/uL (4.8-10.8)
[2023-02-14 05:04] LABS: ALT (SGPT) 110 U/L (8-55); AST (SGOT) 64 U/L (5-34); Albumin 3.1 g/dL (3.5-5.0); Alkaline Phosphatase 127 U/L (40-110); Anion Gap 13 mmol/L (10-20); BUN (Urea Nitrogen) 25 mg/dL (8.9-20.6); Bilirubin, Total 2.8 mg/dL (0.2-1.2); Calc. Creatinine Clearance 122 mL/min (70-130); Calcium 8.9 mg/dL (7.8-10.44); Carbon Dioxide 33 mmol/L (22-29); Chloride 90 mmol/L (98-107); Estimated GFR 90; Globulin 2.9 g/dL (2.4-3.5); Glucose 131 mg/dL (70-105); Phosphorus 2.4 mg/dL (2.3-4.7); Potassium 3.8 mmol/L (3.5-5.1); Sodium 132 mmol/L (136-145)
[2023-02-14 05:06] LABS: INR-International Normal Ratio 1.4; PTT 51.7 sec (22.9-36.1); Prothrombin Time 17.6 sec (12.0-14.7)
[2023-02-14] MEDS: LevoFLOXacin 750 MG TAB PO SCH (06:26)
[2023-02-14] MEDS: Furosemide 40 MG/4 ML VIAL SLOW IVP SCH ×2 (06:27→15:18)
[2023-02-14] MEDS: Aspirin Chewable 81 MG TAB PO SCH (09:20)
[2023-02-14] MEDS: Isosorbide Dinitrate 20 MG TAB PO SCH ×3 (09:20→20:01)
[2023-02-14] MEDS: Potassium Chloride 20 MEQ TAB PO SCH (09:20)
[2023-02-14] MEDS: Amiodarone 200 MG TAB PO SCH (09:20)
[2023-02-14] MEDS: Melatonin 3 MG TAB PO PRN (20:01)
[2023-02-14] MEDS: Atorvastatin Calcium 40 MG TAB PO SCH (20:01)
[2023-02-15 04:55] LABS: #Eosinphils 0.6 thou/uL (0.0-0.7); #Neutrophils 13.7 thou/uL (1.40-6.50); %Basophils 0.2 % (0.0-1.0); %Eosinophils 3.4 % (0.0-10.0); %Lymphocytes 8.9 % (21.0-51.0); %Neutrophils 79.9 % (42.0-75.0); Hemoglobin 12.5 g/dL (14.0-18.0); Mean Corpuscular HGB CONC 32.1 g/dL (32.0-36.0); Mean Corpuscular Volume 81.1 fl (78.0-98.0); Mean Platelet Volume 10.4 fL (7.4-10.4); Platelet Count 209 10x3/uL (130-400); RBC Distribution Width 22.5 % (11.5-14.5); Red Blood Cell (RBC) Count 4.81 mill/uL (4.70-6.10); White Blood Cell (WBC) Count 17.2 10x3/uL (4.8-10.8)
[2023-02-15 05:10] LABS: INR-International Normal Ratio 1.3; Prothrombin Time 16.7 sec (12.0-14.7)
[2023-02-15 05:32] LABS: ALT (SGPT) 92 U/L (8-55); AST (SGOT) 58 U/L (5-34); Albumin 3.2 g/dL (3.5-5.0); Alkaline Phosphatase 121 U/L (40-110); Anion Gap 16 mmol/L (10-20); BUN (Urea Nitrogen) 25 mg/dL (8.9-20.6); Bilirubin, Total 2.7 mg/dL (0.2-1.2); Calc. Creatinine Clearance 124 mL/min (70-130); Calcium 9.1 mg/dL (7.8-10.44); Carbon Dioxide 31 mmol/L (22-29); Chloride 93 mmol/L (98-107); Estimated GFR 92; Globulin 2.9 g/dL (2.4-3.5); Glucose 90 mg/dL (70-105); Phosphorus 3.2 mg/dL (2.3-4.7); Potassium 4.1 mmol/L (3.5-5.1); Protein, Total 6.1 g/dL (6.0-8.3); Sodium 136 mmol/L (136-145)
[2023-02-15] MEDS: LevoFLOXacin 750 MG TAB PO SCH (05:53)
[2023-02-15] MEDS: Furosemide 40 MG/4 ML VIAL SLOW IVP SCH ×2 (05:53→15:50)
[2023-02-15] MEDS: Amiodarone 200 MG TAB PO SCH (09:12)
[2023-02-15] MEDS: Isosorbide Dinitrate 20 MG TAB PO SCH ×3 (09:12→20:58)
[2023-02-15] MEDS: Aspirin Chewable 81 MG TAB PO SCH (09:12)
[2023-02-15] MEDS: Potassium Chloride 20 MEQ TAB PO SCH (09:12)
[2023-02-15] MEDS ORDERED: Cefepime 2 GM in Sodium Chloride 0.9% 100 ML IVPB SCH (10:00)
[2023-02-15 16:11] LABS: Amphetamine Not Detected (NotDetected); Barbiturates Screen Not Detected (NotDetected); Benzodiazepine Screen Not Detected (NotDetected); Cocaine Metabolite Screen Not Detected (NotDetected); Methadone Not Detected (NotDetected); Methamphetamine Not Detected (NotDetected); Opiate Screen Detected (NotDetected); Oxycodone Screen Not Detected (NotDetected); Phencyclidine (PCP) Not Detected (NotDetected); THC/Cannabinoid Screen Not Detected (NotDetected); Tricyclic Screen Not Detected (NotDetected)
[2023-02-15] MEDS: hydrOXYzine 25 MG TAB PO PRN (18:29)
[2023-02-15] MEDS: Apixaban 5 MG TAB PO SCH (20:58)
[2023-02-15] MEDS: Melatonin 3 MG TAB PO PRN (20:58)
[2023-02-15] MEDS: Atorvastatin Calcium 40 MG TAB PO SCH (20:58)
[2023-02-15] MEDS: Cefepime 2 GM in Sodium Chloride 0.9% 100 ML IVPB SCH (21:01)
[2023-02-15 22:16] LABS: Hematocrit 40.5 % (42.0-52.0); Hemoglobin 12.7 g/dL (14.0-18.0); Platelet Count 218 10x3/uL (130-400)
[2023-02-16] MEDS: Furosemide 40 MG/4 ML VIAL SLOW IVP SCH ×2 (05:06→15:49)
[2023-02-16] MEDS: Potassium Chloride 20 MEQ TAB PO SCH (08:25)
[2023-02-16] MEDS: Cefepime 2 GM in Sodium Chloride 0.9% 100 ML IVPB SCH ×2 (08:25→20:05)
[2023-02-16] MEDS: Aspirin Chewable 81 MG TAB PO SCH (08:25)
[2023-02-16] MEDS: Amiodarone 200 MG TAB PO SCH (08:25)
[2023-02-16] MEDS: Isosorbide Dinitrate 20 MG TAB PO SCH ×3 (08:25→20:05)
[2023-02-16] MEDS: Apixaban 5 MG TAB PO SCH ×2 (08:26→20:05)
[2023-02-16] MEDS: Melatonin 3 MG TAB PO PRN (20:02)
[2023-02-16] MEDS: hydrOXYzine 25 MG TAB PO PRN (20:02)
[2023-02-16] MEDS: Atorvastatin Calcium 40 MG TAB PO SCH (20:05)
[2023-02-17] MEDS: Furosemide 40 MG/4 ML VIAL SLOW IVP SCH (06:37)
[2023-02-17] MEDS ORDERED: Amiodarone 200 MG TAB PO SCH (09:00)
[2023-02-17] MEDS: Apixaban 5 MG TAB PO SCH (09:25)
[2023-02-17] MEDS: Aspirin Chewable 81 MG TAB PO SCH (09:25)
[2023-02-17] MEDS: Cefepime 2 GM in Sodium Chloride 0.9% 100 ML IVPB SCH (09:25)
[2023-02-17] MEDS: Isosorbide Dinitrate 20 MG TAB PO SCH ×2 (09:25→14:28)
[2023-02-17] MEDS: Potassium Chloride 20 MEQ TAB PO SCH (09:25)
[2023-02-17 11:14] LABS: #Basophils 0.1 thou/uL (0.0-0.2); #Eosinphils 0.8 thou/uL (0.0-0.7); #Monocytes 1.4 thou/uL (0.11-0.59); #Neutrophils 9.8 thou/uL (1.40-6.50); %Basophils 0.4 % (0.0-1.0); %Eosinophils 5.5 % (0.0-10.0); %Lymphocytes 9.2 % (21.0-51.0); %Neutrophils 70.5 % (42.0-75.0); Hematocrit 41.9 % (42.0-52.0); Hemoglobin 13.1 g/dL (14.0-18.0); Mean Corpuscular HGB CONC 31.3 g/dL (32.0-36.0); Mean Corpuscular Volume 83.1 fl (78.0-98.0); Mean Platelet Volume 10.6 fL (7.4-10.4); Platelet Count 273 10x3/uL (130-400); RBC Distribution Width 22.9 % (11.5-14.5); Red Blood Cell (RBC) Count 5.04 mill/uL (4.70-6.10)
[2023-02-17 11:42] LABS: Magnesium 1.4 mg/dL (1.6-2.6)
[2023-02-17 11:46] LABS: ALT (SGPT) 80 U/L (8-55); AST (SGOT) 62 U/L (5-34); Albumin 3.2 g/dL (3.5-5.0); Alkaline Phosphatase 127 U/L (40-110); Anion Gap 14 mmol/L (10-20); BUN (Urea Nitrogen) 27 mg/dL (8.9-20.6); Calc. Creatinine Clearance 87 mL/min (70-130); Calcium 8.9 mg/dL (7.8-10.44); Carbon Dioxide 27 mmol/L (22-29); Chloride 98 mmol/L (98-107); Estimated GFR 70; Glucose 125 mg/dL (70-105); Phosphorus 3.3 mg/dL (2.3-4.7); Potassium 4.4 mmol/L (3.5-5.1); Protein, Total 6.2 g/dL (6.0-8.3); Sodium 135 mmol/L (136-145)
[2023-02-17 11:58] VITALS: BP 113/73; TEMP 98
[2023-02-17] MEDS ORDERED: Magnesium Sulfate In Water 4 GM in Premix Bag 1 BAG IVPB SCH (14:00)
[2023-02-18] MEDS ORDERED: Furosemide 40 MG TAB PO SCH (07:30)
[2023-02-22] MEDS ORDERED: Apixaban 5 MG TAB PO SCH (21:00)
== END 2023-02-17 15:15 | disposition left against medical advice (07) | DRG 871 ==
LOC: ERS 18:35 → CCU 21:42 → 2NO 02-12 18:34
PROVIDERS: ADMIT Student in an Organized Health Care Education/Training Program; ATTEND Internal Medicine
PROC: 3E03329 Introduction of Other Anti-infective into Peripheral Vein, Percutaneous Approach (ICD-10-PCS; 2023-02-09)
PROC: 4A033R1 Measurement of Arterial Saturation, Peripheral, Percutaneous Approach (ICD-10-PCS; principal; 2023-02-10)
PROC: 30233J1 Transfusion of Nonautologous Serum Albumin into Peripheral Vein, Percutaneous Approach (ICD-10-PCS; 2023-02-10)
DX: A41.9 Sepsis, unspecified organism (principal); I21.A1 Myocardial infarction type 2; I26.99 Other pulmonary embolism without acute cor pulmonale; J18.9 Pneumonia, unspecified organism; J96.01 Acute respiratory failure with hypoxia; I50.23 Acute on chronic systolic (congestive) heart failure; I13.0 Hypertensive heart and chronic kidney disease with heart failure and stage 1 through stage 4 chronic kidney disease, or unspecified chronic kidney disease; J44.0 Chronic obstructive pulmonary disease with (acute) lower respiratory infection; E87.1 Hypo-osmolality and hyponatremia; N17.9 Acute kidney failure, unspecified; E87.20 Acidosis, unspecified; G93.40 Encephalopathy, unspecified; D68.9 Coagulation defect, unspecified; I42.0 Dilated cardiomyopathy; R65.20 Severe sepsis without septic shock; E78.00 Pure hypercholesterolemia, unspecified; J44.9 Chronic obstructive pulmonary disease, unspecified; F15.10 Other stimulant abuse, uncomplicated; I25.10 Atherosclerotic heart disease of native coronary artery without angina pectoris; N18.30 Chronic kidney disease, stage 3 unspecified; I27.21 Secondary pulmonary arterial hypertension; K71.10 Toxic liver disease with hepatic necrosis, without coma; E83.51 Hypocalcemia; E87.6 Hypokalemia; Z66 Do not resuscitate; I50.82 Biventricular heart failure; Z20.822 Contact with and (suspected) exposure to COVID-19; Z90.49 Acquired absence of other specified parts of digestive tract; Z98.890 Other specified postprocedural states; Z87.891 Personal history of nicotine dependence; Z86.73 Personal history of transient ischemic attack (TIA), and cerebral infarction without residual deficits; Z79.01 Long term (current) use of anticoagulants; Z79.82 Long term (current) use of aspirin; Z79.899 Other long term (current) drug therapy; Z91.148 Patient's other noncompliance with medication regimen for other reason
CPT/HCPCS: 36415; 36416; 36600; 71045; 71275; 76700; 76770; 80048; 80053; 80074; 80202; 80306; 81001; 82140; 82310; 82805; 83605; 83690; 83735; 83880; 84100; 84439; 84443; 84481; 84484; 85014; 85018; 85025; 85049; 85610; 85730; 87040; 87081; 87086; 93005; 93306; 93798; 93970; 94660; 96365; 96366; 96367; 96372; 96375; J0613; J0692; J1250; J1650; J1940; J1956; J2060; J2920; J2930; J3370; J3370-JW; J3475; J3490; P9047; Q9967

== ENCOUNTER 2023-03-30 19:30 | Emergency (ER) | payer OTHER, SELFPAY ==
[2023-03-30] MEDS ORDERED: Furosemide 40 MG/4 ML VIAL ONE (20:24)
[2023-03-30 21:00] LABS: #Basophils 0.1 thou/uL (0.0-0.2); #Eosinphils 0.4 thou/uL (0.0-0.7); #Neutrophils 7.8 thou/uL (1.40-6.50); %Basophils 0.6 % (0.0-1.0); %Eosinophils 3.7 % (0.0-10.0); %Lymphocytes 9.3 % (21.0-51.0); %Monocytes 9.8 % (0.0-10.0); %Neutrophils 76.2 % (42.0-75.0); Hematocrit 44.6 % (42.0-52.0); Hemoglobin 13.7 g/dL (14.0-18.0); Mean Corpuscular HGB CONC 30.7 g/dL (32.0-36.0); Mean Corpuscular Hemoglobin 25.6 pg (27.0-31.0); Mean Corpuscular Volume 83.2 fl (78.0-98.0); Mean Platelet Volume 9.9 fL (7.4-10.4); Platelet Count 317 10x3/uL (130-400); RBC Distribution Width 21.2 % (11.5-14.5); Red Blood Cell (RBC) Count 5.36 mill/uL (4.70-6.10); White Blood Cell (WBC) Count 10.3 10x3/uL (4.8-10.8)
[2023-03-30 21:28] LABS: Troponin I 0.176 ng/mL (< 0.028)
[2023-03-30 21:32] LABS: ALT (SGPT) 24 U/L (8-55); AST (SGOT) 34 U/L (5-34); Albumin 3.6 g/dL (3.5-5.0); Alkaline Phosphatase 108 U/L (40-110); Anion Gap 16 mmol/L (10-20); BUN (Urea Nitrogen) 14 mg/dL (8.9-20.6); Bilirubin, Total 1.5 mg/dL (0.2-1.2); Calc. Creatinine Clearance 0 mL/min (70-130); Carbon Dioxide 25 mmol/L (22-29); Chloride 102 mmol/L (98-107); Estimated GFR 99; Globulin 2.9 g/dL (2.4-3.5); Glucose 97 mg/dL (70-105); Potassium 3.9 mmol/L (3.5-5.1); Protein, Total 6.5 g/dL (6.0-8.3); Sodium 139 mmol/L (136-145)
== END 2023-03-31 | disposition home or self-care (01) ==
LOC: ERS 19:30
DX: I11.0 Hypertensive heart disease with heart failure (principal); I50.9 Heart failure, unspecified; E78.00 Pure hypercholesterolemia, unspecified; J44.9 Chronic obstructive pulmonary disease, unspecified; Z87.891 Personal history of nicotine dependence
CPT/HCPCS: 36415; 71045; 80053; 83880; 84484; 85025; 93005; 94760; 96374; J1940

== ENCOUNTER 2023-07-05 14:20 | Inpatient (IN) | payer OTHER ==
[2023-07-05] MEDS ORDERED: Acetaminophen 500 MG TAB ONE (15:02)
[2023-07-05] MEDS ORDERED: Ondansetron ODT 4 MG TAB ONE (15:02)
[2023-07-05 15:24] LABS: #Eosinphils 0.1 thou/uL (0.0-0.7); #Monocytes 0.9 thou/uL (0.11-0.59); %Basophils 0.1 % (0.0-1.0); %Eosinophils 0.6 % (0.0-10.0); %Lymphocytes 4.9 % (21.0-51.0); %Monocytes 6.5 % (0.0-10.0); %Neutrophils 87.5 % (42.0-75.0); Hematocrit 40.8 % (42.0-52.0); Hemoglobin 12.5 g/dL (14.0-18.0); Mean Corpuscular HGB CONC 30.6 g/dL (32.0-36.0); Mean Corpuscular Hemoglobin 23.7 pg (27.0-31.0); Mean Corpuscular Volume 77.3 fl (78.0-98.0); Mean Platelet Volume 10.4 fL (7.4-10.4); Platelet Count 218 10x3/uL (130-400); RBC Distribution Width 21.4 % (11.5-14.5); Red Blood Cell (RBC) Count 5.28 mill/uL (4.70-6.10); White Blood Cell (WBC) Count 13.8 10x3/uL (4.8-10.8)
[2023-07-05 15:32] LABS: SARS-CoV-2 NAA Rapid Test Not Detected (NotDetected)
[2023-07-05 15:44] LABS: ALT (SGPT) 74 U/L (8-55); AST (SGOT) 89 U/L (5-34); Albumin 3.1 g/dL (3.5-5.0); Alkaline Phosphatase 107 U/L (40-110); Anion Gap 15 mmol/L (10-20); BUN (Urea Nitrogen) 42 mg/dL (8.9-20.6); Bilirubin, Total 3.5 mg/dL (0.2-1.2); Calc. Creatinine Clearance 0 mL/min (70-130); Calcium 8.4 mg/dL (7.8-10.44); Carbon Dioxide 21 mmol/L (22-29); Chloride 98 mmol/L (98-107); Estimated GFR 75; Globulin 2.8 g/dL (2.4-3.5); Glucose 107 mg/dL (70-105); Lipase 11 U/L (8-78); Magnesium 1.8 mg/dL (1.6-2.6); Potassium 4.9 mmol/L (3.5-5.1); Protein, Total 5.9 g/dL (6.0-8.3); Sodium 129 mmol/L (136-145)
[2023-07-05 15:46] LABS: Troponin I 0.048 ng/mL (< 0.028)
[2023-07-05] MEDS ORDERED: Ipratropium/Albuterol 3 ML NEB ONE (16:00)
[2023-07-05] MEDS ORDERED: Albuterol 2.5 MG (3 mL) NEB ONE (16:04)
[2023-07-05] MEDS ORDERED: Azithromycin 500 MG VIAL ONE (16:12)
[2023-07-05] MEDS ORDERED: Dexamethasone 10 MG/ML VIAL ONE (16:12)
[2023-07-05] MEDS ORDERED: cefTRIAXone (ROCEPHIN) 2 GM VIAL ONE (16:12)
[2023-07-05] MEDS ORDERED: Sodium Chloride 0.9% 100 ML ONE (16:12)
[2023-07-05] MEDS ORDERED: Furosemide 40 MG (4 mL) VIAL ONE ×2 (17:08→17:58)
[2023-07-05 18:34] LABS: Critical Call Chem-Lactate NUR.KR7@1833
[2023-07-05] MEDS ORDERED: DOBUTamine 500 mg/250 ml 250 ML ONE (18:37)
[2023-07-05] MEDS ORDERED: Amiodarone 200 MG TAB PO SCH (19:00)
[2023-07-05 19:38] LABS: Actual Bicarbonate (HCO3v) 18.5 mEq/L (22-28); Base Excess -9.8 mEq/L (-2.0 to +3.0); Calcium, Ionized (venous) 1.02 mmol/L (1.16-1.32); Chloride (VBG) 95 mmol/L (98-106); Hematocrit-VBG 43 % (42.0-52.0); Hemoglobin (Hb) 14.7 g/dL (13.1-17.2); Potassium (VBG) 5.88 mmol/L (3.70-5.30); Sodium 131 mmol/L (133-146)
[2023-07-05] MEDS ORDERED: Ondansetron ODT 4 MG TAB SL PRN (20:45)
[2023-07-05] MEDS ORDERED: Acetaminophen 325 MG TAB PO PRN (20:45)
[2023-07-05] MEDS ORDERED: Ondansetron PF 4 MG/2 ML Vial IVP PRN (20:45)
[2023-07-05] MEDS: Valsartan 80 MG TAB PO SCH (21:01)
[2023-07-05] MEDS: Atorvastatin Calcium 40 MG TAB PO SCH (21:01)
[2023-07-05] MEDS: Apixaban 5 MG TAB PO SCH (21:01)
[2023-07-05 21:21] LABS: Amphetamine Not Detected (NotDetected); Barbiturates Screen Not Detected (NotDetected); Benzodiazepine Screen Not Detected (NotDetected); Cocaine Metabolite Screen Not Detected (NotDetected); Methadone Not Detected (NotDetected); Methamphetamine Detected (NotDetected); Opiate Screen Not Detected (NotDetected); Oxycodone Screen Not Detected (NotDetected); Phencyclidine (PCP) Not Detected (NotDetected); THC/Cannabinoid Screen Not Detected (NotDetected); Tricyclic Screen Not Detected (NotDetected)
[2023-07-05 21:29] LABS: Legionella Urinary Ag Negative (Negative); Strep pneumo Urine Ag NEGATIVE (NEGATIVE)
[2023-07-05] MEDS: Albuterol 2.5 MG (3 mL) NEB NEB SCH (21:32)
[2023-07-05] MEDS: Furosemide 40 MG (4 mL) VIAL SLOW IVP SCH (22:40)
[2023-07-05 23:12] LABS: Lactic Acid 4.3 mmol/L (0.5-2.2)
[2023-07-06 04:20] LABS: #Monocytes 0.5 thou/uL (0.11-0.59); #Neutrophils 11.7 thou/uL (1.40-6.50); %Basophils 0.1 % (0.0-1.0); %Lymphocytes 2.4 % (21.0-51.0); %Neutrophils 92.9 % (42.0-75.0); Hematocrit 37.8 % (42.0-52.0); Hemoglobin 11.7 g/dL (14.0-18.0); Mean Corpuscular Hemoglobin 24.3 pg (27.0-31.0); Mean Corpuscular Volume 78.4 fl (78.0-98.0); Mean Platelet Volume 10.6 fL (7.4-10.4); Platelet Count 192 10x3/uL (130-400); RBC Distribution Width 21.2 % (11.5-14.5); Red Blood Cell (RBC) Count 4.82 mill/uL (4.70-6.10); White Blood Cell (WBC) Count 12.6 10x3/uL (4.8-10.8)
[2023-07-06 04:34] LABS: Lactic Acid 4.3 mmol/L (0.5-2.2)
[2023-07-06 04:36] LABS: Anion Gap 17 mmol/L (10-20); BUN (Urea Nitrogen) 37 mg/dL (8.9-20.6); Calc. Creatinine Clearance 116 mL/min (70-130); Carbon Dioxide 22 mmol/L (22-29); Chloride 98 mmol/L (98-107); Potassium 4.3 mmol/L (3.5-5.1); Sodium 133 mmol/L (136-145)
[2023-07-06 04:37] LABS: Calcium 8.1 mg/dL (7.8-10.44); Estimated GFR 78; Glucose 104 mg/dL (70-105)
[2023-07-06] MEDS: Furosemide 40 MG (4 mL) VIAL SLOW IVP SCH ×2 (05:56→16:12)
[2023-07-06] MEDS: Albuterol 2.5 MG (3 mL) NEB NEB SCH ×4 (06:47→19:33)
[2023-07-06] MEDS: Mometasone 200 MCG/Formoterol 5 MCG 120 PUFF INHALER INH SCH ×2 (06:49→19:35)
[2023-07-06] MEDS: DOBUTamine 500 mg/250 ml 250 ML IVPB SCH (08:52)
[2023-07-06] MEDS: Aspirin 81 mg Enteric Coated Tablet PO SCH (08:53)
[2023-07-06] MEDS: Amiodarone 200 MG TAB PO SCH (08:53)
[2023-07-06] MEDS: Spironolactone 25 MG TAB PO SCH (08:53)
[2023-07-06] MEDS: cefTRIAXone\\ROCEPHIN 1 GM in Sodium Chloride 0.9% 100 ML IVPB SCH (08:53)
[2023-07-06] MEDS: Apixaban 5 MG TAB PO SCH ×2 (08:53→20:43)
[2023-07-06] MEDS: predniSONE 20 MG TAB PO SCH (08:53)
[2023-07-06] MEDS: Valsartan 80 MG TAB PO SCH ×2 (08:54→20:43)
[2023-07-06] MEDS: Empagliflozin 10 MG TAB PO SCH (08:54)
[2023-07-06] MEDS ORDERED: Azithromycin 500 MG in Sodium Chloride 0.9% 250 ML 250 ML IVPB SCH (20:30)
[2023-07-06] MEDS: Atorvastatin Calcium 40 MG TAB PO SCH (20:43)
[2023-07-07] MEDS: DOBUTamine 500 mg/250 ml 250 ML IVPB SCH ×2 (00:35→14:23)
[2023-07-07] MEDS: Furosemide 40 MG (4 mL) VIAL SLOW IVP SCH ×3 (00:37→14:23)
[2023-07-07] MEDS: Albuterol 2.5 MG (3 mL) NEB NEB SCH ×4 (08:00→18:26)
[2023-07-07] MEDS: Mometasone 200 MCG/Formoterol 5 MCG 120 PUFF INHALER INH SCH ×2 (08:01→18:27)
[2023-07-07] MEDS: Apixaban 5 MG TAB PO SCH ×2 (08:54→20:19)
[2023-07-07] MEDS: Amiodarone 200 MG TAB PO SCH (08:54)
[2023-07-07] MEDS: Aspirin 81 mg Enteric Coated Tablet PO SCH (08:54)
[2023-07-07] MEDS: Empagliflozin 10 MG TAB PO SCH (08:54)
[2023-07-07] MEDS: predniSONE 20 MG TAB PO SCH (08:54)
[2023-07-07] MEDS: cefTRIAXone\\ROCEPHIN 1 GM in Sodium Chloride 0.9% 100 ML IVPB SCH (08:55)
[2023-07-07] MEDS: Spironolactone 25 MG TAB PO SCH (08:55)
[2023-07-07] MEDS: Valsartan 80 MG TAB PO SCH ×2 (08:57→20:19)
[2023-07-07 09:06] LABS: #Monocytes 0.7 thou/uL (0.11-0.59); %Basophils 0.1 % (0.0-1.0); %Lymphocytes 1.4 % (21.0-51.0); %Monocytes 4.1 % (0.0-10.0); %Neutrophils 92.9 % (42.0-75.0); Hematocrit 39.6 % (42.0-52.0); Hemoglobin 12.1 g/dL (14.0-18.0); Mean Corpuscular HGB CONC 30.6 g/dL (32.0-36.0); Mean Corpuscular Hemoglobin 23.9 pg (27.0-31.0); Mean Corpuscular Volume 78.3 fl (78.0-98.0); Mean Platelet Volume 10.5 fL (7.4-10.4); Platelet Count 192 10x3/uL (130-400); RBC Distribution Width 21.5 % (11.5-14.5); Red Blood Cell (RBC) Count 5.06 mill/uL (4.70-6.10); White Blood Cell (WBC) Count 16.2 10x3/uL (4.8-10.8)
[2023-07-07 09:27] LABS: AST (SGOT) 47 U/L (5-34); Anion Gap 15 mmol/L (10-20); Bilirubin, Total 1.7 mg/dL (0.2-1.2); Calc. Creatinine Clearance 86 mL/min (70-130); Calcium 8.3 mg/dL (7.8-10.44); Carbon Dioxide 31 mmol/L (22-29); Chloride 94 mmol/L (98-107); Estimated GFR 59; Potassium 3.8 mmol/L (3.5-5.1); Protein, Total 6.3 g/dL (6.0-8.3); Sodium 136 mmol/L (136-145)
[2023-07-07 09:33] LABS: ALT (SGPT) 60 U/L (8-55); Albumin 3.3 g/dL (3.5-5.0); Alkaline Phosphatase 105 U/L (40-110); BUN (Urea Nitrogen) 35 mg/dL (8.9-20.6); Glucose 164 mg/dL (70-105)
[2023-07-07] MEDS: Doxycycline 100 MG CAP PO SCH (20:19)
[2023-07-07] MEDS: Multivit, Therapeutic 1 TAB PO SCH (20:19)
[2023-07-07] MEDS: Atorvastatin Calcium 40 MG TAB PO SCH (20:20)
[2023-07-08 04:22] LABS: #Neutrophils 14.4 thou/uL (1.40-6.50); %Basophils 0.1 % (0.0-1.0); %Lymphocytes 1.8 % (21.0-51.0); %Monocytes 6.5 % (0.0-10.0); Hematocrit 38.5 % (42.0-52.0); Hemoglobin 11.8 g/dL (14.0-18.0); Mean Corpuscular HGB CONC 30.6 g/dL (32.0-36.0); Mean Corpuscular Hemoglobin 23.4 pg (27.0-31.0); Mean Corpuscular Volume 76.4 fl (78.0-98.0); Mean Platelet Volume 10.4 fL (7.4-10.4); Platelet Count 184 10x3/uL (130-400); RBC Distribution Width 21.4 % (11.5-14.5); Red Blood Cell (RBC) Count 5.04 mill/uL (4.70-6.10); White Blood Cell (WBC) Count 15.8 10x3/uL (4.8-10.8)
[2023-07-08 05:23] LABS: ALT (SGPT) 49 U/L (8-55); AST (SGOT) 42 U/L (5-34); Albumin 3.1 g/dL (3.5-5.0); Alkaline Phosphatase 111 U/L (40-110); Anion Gap 14 mmol/L (10-20); BUN (Urea Nitrogen) 29 mg/dL (8.9-20.6); Bilirubin, Total 1.5 mg/dL (0.2-1.2); Calc. Creatinine Clearance 101 mL/min (70-130); Calcium 8.3 mg/dL (7.8-10.44); Carbon Dioxide 29 mmol/L (22-29); Chloride 98 mmol/L (98-107); Estimated GFR 71; Globulin 2.8 g/dL (2.4-3.5); Glucose 106 mg/dL (70-105); Magnesium 1.8 mg/dL (1.6-2.6); Potassium 3.8 mmol/L (3.5-5.1); Protein, Total 5.9 g/dL (6.0-8.3); Sodium 137 mmol/L (136-145)
[2023-07-08 06:12] VITALS: BMI 30.9
[2023-07-08] MEDS: Mometasone 200 MCG/Formoterol 5 MCG 120 PUFF INHALER INH SCH ×2 (06:35→18:24)
[2023-07-08] MEDS: Albuterol 2.5 MG (3 mL) NEB NEB SCH ×4 (06:35→18:23)
[2023-07-08] MEDS ORDERED: Magnesium 2 GM/50 ML(in water) 2 GM in Premix 1 BAG IVPB SCH (07:45)
[2023-07-08] MEDS ORDERED: FLU VACC QS2023-24(6MOS UP)/PF 60 MCG/0.5 ML SYRINGE IM ONE (09:00)
[2023-07-08] MEDS: Furosemide 40 MG (4 mL) VIAL SLOW IVP SCH ×2 (09:44→15:50)
[2023-07-08] MEDS: predniSONE 20 MG TAB PO SCH (09:45)
[2023-07-08] MEDS: Apixaban 5 MG TAB PO SCH ×2 (09:46→20:51)
[2023-07-08] MEDS: Empagliflozin 10 MG TAB PO SCH (09:46)
[2023-07-08] MEDS: Spironolactone 25 MG TAB PO SCH (09:46)
[2023-07-08] MEDS: cefTRIAXone\\ROCEPHIN 1 GM in Sodium Chloride 0.9% 100 ML IVPB SCH (09:46)
[2023-07-08] MEDS: Amiodarone 200 MG TAB PO SCH (09:46)
[2023-07-08] MEDS: Aspirin 81 mg Enteric Coated Tablet PO SCH (09:46)
[2023-07-08] MEDS: Doxycycline 100 MG CAP PO SCH ×2 (09:46→20:51)
[2023-07-08] MEDS: Valsartan 80 MG TAB PO SCH ×2 (09:47→20:53)
[2023-07-08 13:58] LABS: pH (venous) 7.189 (7.32-7.43)
[2023-07-08] MEDS: Atorvastatin Calcium 40 MG TAB PO SCH (20:50)
[2023-07-08] MEDS: Multivit, Therapeutic 1 TAB PO SCH (20:51)
[2023-07-09] MEDS: DOBUTamine 500 mg/250 ml 250 ML IVPB SCH (01:56)
[2023-07-09] MEDS: Furosemide 40 MG (4 mL) VIAL SLOW IVP SCH (06:31)
[2023-07-09] MEDS: Albuterol 2.5 MG (3 mL) NEB NEB SCH ×3 (07:14→14:25)
[2023-07-09] MEDS: Mometasone 200 MCG/Formoterol 5 MCG 120 PUFF INHALER INH SCH (07:15)
[2023-07-09 07:40] LABS: #Monocytes 1.5 thou/uL (0.11-0.59); #Neutrophils 12.8 thou/uL (1.40-6.50); %Basophils 0.1 % (0.0-1.0); %Lymphocytes 3.3 % (21.0-51.0); %Monocytes 10.2 % (0.0-10.0); %Neutrophils 85.9 % (42.0-75.0); Hematocrit 40.2 % (42.0-52.0); Mean Corpuscular HGB CONC 29.9 g/dL (32.0-36.0); Mean Corpuscular Hemoglobin 23.5 pg (27.0-31.0); Mean Corpuscular Volume 78.7 fl (78.0-98.0); Mean Platelet Volume 10.3 fL (7.4-10.4); Platelet Count 199 10x3/uL (130-400); RBC Distribution Width 21.2 % (11.5-14.5); Red Blood Cell (RBC) Count 5.11 mill/uL (4.70-6.10); White Blood Cell (WBC) Count 14.9 10x3/uL (4.8-10.8)
[2023-07-09] MEDS: Empagliflozin 10 MG TAB PO SCH (07:45)
[2023-07-09] MEDS: Amiodarone 200 MG TAB PO SCH (07:46)
[2023-07-09] MEDS: Valsartan 80 MG TAB PO SCH (07:46)
[2023-07-09] MEDS: Spironolactone 25 MG TAB PO SCH (07:46)
[2023-07-09] MEDS: Apixaban 5 MG TAB PO SCH (07:46)
[2023-07-09] MEDS: Doxycycline 100 MG CAP PO SCH (07:46)
[2023-07-09] MEDS: Aspirin 81 mg Enteric Coated Tablet PO SCH (07:46)
[2023-07-09] MEDS ORDERED: predniSONE 20 MG TAB PO SCH (08:00)
[2023-07-09 08:05] LABS: Anion Gap 13 mmol/L (10-20); BUN (Urea Nitrogen) 30 mg/dL (8.9-20.6); Calc. Creatinine Clearance 96 mL/min (70-130); Calcium 8.5 mg/dL (7.8-10.44); Carbon Dioxide 34 mmol/L (22-29); Chloride 95 mmol/L (98-107); Estimated GFR 78; Glucose 112 mg/dL (70-105); Magnesium 1.6 mg/dL (1.6-2.6); Potassium 3.8 mmol/L (3.5-5.1); Sodium 138 mmol/L (136-145)
[2023-07-09 08:06] VITALS: TEMP 97.5
[2023-07-09] MEDS ORDERED: Magnesium Sulfate In Water 4 GM in Premix 1 BAG IVPB SCH (10:30)
[2023-07-09 16:18] VITALS: BP 115/85
[2023-07-10] MEDS ORDERED: Furosemide 40 MG TAB PO SCH (07:30)
== END 2023-07-09 17:20 | disposition home or self-care (01) | DRG 291 ==
LOC: ERS 14:20 → IMCU/EMU 18:09
PROVIDERS: ADMIT Hospitalist; ATTEND Internal Medicine
PROC: 5A09457 Assistance with Respiratory Ventilation, 24-96 Consecutive Hours, Continuous Positive Airway Pressure (ICD-10-PCS; principal; 2023-07-05)
DX: I11.0 Hypertensive heart disease with heart failure (principal); I50.23 Acute on chronic systolic (congestive) heart failure; J96.01 Acute respiratory failure with hypoxia; J44.1 Chronic obstructive pulmonary disease with (acute) exacerbation; E87.20 Acidosis, unspecified; N17.9 Acute kidney failure, unspecified; E87.1 Hypo-osmolality and hyponatremia; E78.5 Hyperlipidemia, unspecified; I25.10 Atherosclerotic heart disease of native coronary artery without angina pectoris; I42.9 Cardiomyopathy, unspecified; F17.210 Nicotine dependence, cigarettes, uncomplicated; Z79.82 Long term (current) use of aspirin; Z86.73 Personal history of transient ischemic attack (TIA), and cerebral infarction without residual deficits; Z79.899 Other long term (current) drug therapy; Z90.49 Acquired absence of other specified parts of digestive tract; Z98.890 Other specified postprocedural states; Z86.711 Personal history of pulmonary embolism; Z11.52 Encounter for screening for COVID-19; I27.20 Pulmonary hypertension, unspecified; G47.30 Sleep apnea, unspecified
CPT/HCPCS: 36415; 71045; 71275; 74177; 80048; 80053; 80306; 82550; 82805; 83605; 83690; 83735; 83880; 84145; 84484; 85025; 85379; 87040; 87070; 87205; 87449; 87899; 89220; 93005; 93798; 94640; 94660; 96374; 96375; 96376; J0456; J0696; J1100; J1250; J1940; J3475; J3490; J7050; J7512; J7611; J7620; Q0162; Q9967